=== PATIENT | male | born 1965 | race Caucasian/White ===

== ENCOUNTER → 2016-06-14 | Outpatient (CLI) | payer OTHER ==
[2016-06-14 11:30] LABS: Magnesium 1.3 mg/dL (1.6-2.3); Phosphorous 3.1 mg/dL (2.5-4.5); Potassium 5.8 mmol/L (3.5-5.1)
== END ==
LOC: LABWHC1 10:29
PROVIDERS: ATTEND Family Medicine
DX: N18.9 Chronic kidney disease, unspecified (principal); E87.6 Hypokalemia; R25.2 Cramp and spasm
CPT/HCPCS: 36415; 80051; 82550; 82565; 83735; 84100; 84520; 85652; 99213

== ENCOUNTER → 2016-06-26 | Outpatient (CLI) | payer OTHER ==
--- NOTE | 2016-06-26 10:46 | US ---
LOWER EXTREMITY VENOUS INSUFFICIENCY SIDE PERFORMED: Bilateral 1) Color flow is present and patency is documented in the following vessels. No DVT or SVT is noted . ? EIV ? Common Femoral Vein ? Deep Femoral Vein ? Femoral Vein ? Popliteal Vein ? Proximal Calf Veins ? Greater Saph Vein ? Upper Small Saph Vein No reflux seen at this time IMPRESSION: NORMAL VENOUS INSUFFICIENCY STUDY.
--- NOTE | 2016-06-27 12:59 | P.ARTDOP ---
Arterial Doppler LOWER EXTREMITY ARTERIAL DOPPLER: DATE OF SERVICE: 06/26/2016 Reason for study: Left leg pain. Doppler waveforms: Multiphasic bilaterally throughout. Pulse volume recording: Normal configuration. Pressure gradients: None. Ankle-brachial indices: Greater than 1 bilaterally. Toe pressures: 116 on the right, 131 on the left Impression: Normal study.
--- NOTE | 2016-07-04 10:28 | P.ARTDOP ---
Arterial Doppler LOWER EXTREMITY ARTERIAL DOPPLER: DATE OF SERVICE: 06/26/2016 Reason for study: Leg pain. Doppler waveforms: Multiphasic bilaterally throughout. Pulse volume recording: Normal configuration. Pressure gradients: None. Ankle-brachial indices: Greater than 1 bilaterally. Toe pressures: 116 on the right, 131 on the left Impression: Normal study.
== END | disposition home or self-care (01) ==
LOC: RADUSWWP 09:22
PROVIDERS: ATTEND Family Medicine
DX: M79.604 Pain in right leg (principal); M79.605 Pain in left leg
CPT/HCPCS: 93923; 93970

== ENCOUNTER → 2016-08-02 | Outpatient (CLI) | payer OTHER ==
[2016-08-02 10:45] LABS: CHCM 34.2; HCT 41.8 % (39.0-53.0); HDW 2.69; HGB 13.9 gm/dL (13.0-17.5); MCH 29.4 pg (25.0-35.0); MCHC 33.3 g/dL (31.0-37.0); MCV 88.3 fL (80.0-100.0); Mean Platelet Volume 6.7; RBC 4.74 m/uL (4.30-5.90); RDW 13.3 % (11.5-15.5); WBC 6.1 k/uL (3.8-10.6)
== END | disposition home or self-care (01) ==
LOC: LABWHC1 09:53
PROVIDERS: ATTEND Orthopaedic Surgery
DX: E55.9 Vitamin D deficiency, unspecified (principal); M79.672 Pain in left foot; E11.9 Type 2 diabetes mellitus without complications; M14.672 Charcot's joint, left ankle and foot
CPT/HCPCS: 36415; 82040; 82306; 85027

== ENCOUNTER → 2016-09-07 | Outpatient (CLI) | payer OTHER | END | disposition home or self-care (01) | LOC: LABWHC1 10:21 | PROVIDERS: ATTEND Orthopaedic Surgery | DX: E55.9 Vitamin D deficiency, unspecified (principal) | CPT/HCPCS: 36415; 82306 ==

== ENCOUNTER → 2016-10-05 | Outpatient (CLI) | payer OTHER | LOC: LABWHC1 11:09 | PROVIDERS: ATTEND Family Medicine | DX: E87.5 Hyperkalemia (principal) | CPT/HCPCS: 36415; 84132 ==

== ENCOUNTER 2016-10-10 11:26 | Inpatient (IN) | payer OTHER ==
[2016-10-08 12:08] VITALS: BMI 40.6
[~2016-10-10 11:26] MED LIST: DEXAMETHASONE SOD PHOSPHATE 10 MG/ML 1 ML VIAL IV ONE; HYDROmorphone 1 MG/ML 1 ML SYRINGE IVP PRN; MIDAZOLAM 2 MG/2 ML VIAL IV PRN; ONDANSETRON 4 MG/2 ML VIAL IVP ONE; SCOPOLAMINE 1.5MG/72HR PATCH TRANSDERM ONE; ceFAZolin 3 GM in SODIUM CHLORIDE 0.9% 100 ML IVPB ONE
[2016-10-10] MEDS ORDERED: MIDAZOLAM 2 MG/2 ML VIAL IV ONE (12:05)
[2016-10-10] MEDS: LACTATED RINGERS 1,000 ML IV SCH ×3 (12:05→21:21)
[2016-10-10 12:08] LABS: Glucose,Whole Blood 156 mg/dL (75-99)
[2016-10-10] MEDS ORDERED: MIDAZOLAM 2 MG/2 ML VIAL ONE (13:30)
[2016-10-10] MEDS ORDERED: LABETALOL 5 MG/ML VIAL MDV ONE (13:30)
[2016-10-10] MEDS ORDERED: HYDROmorphone (PF) 1 MG/ML ONE (13:30)
[2016-10-10] MEDS ORDERED: SUCCINYLCHOLINE CHLORIDE 100 MG/5 ML SYR IV ONE (13:30)
[2016-10-10] MEDS ORDERED: PHENYLEPHRINE-0.9% NACL SYG 1 MG/10 ML SYRINGE ONE (13:30)
[2016-10-10] MEDS ORDERED: PROPOFOL 10 MG/ML 20 ML VIAL IV ONE (13:30)
[2016-10-10] MEDS ORDERED: fentaNYL (PF) 50 MCG/ML 2 ML AMP ONE (13:30)
[2016-10-10] MEDS ORDERED: LIDOCAINE 1% INJ 10MG/ML (20 ML MDV) ONE (13:30)
[2016-10-10] MEDS ORDERED: LACTATED RINGERS 1,000 ML IV ONE ×2 (14:17→15:26)
[2016-10-10] MEDS ORDERED: ceFAZolin 1,000 MG in SODIUM CHLORIDE 0.9% 1,000 ML IRRIGATION ONE (15:34)
[2016-10-10] MEDS ORDERED: ONDANSETRON 4 MG/2 ML VIAL IVP PRN (15:52)
[2016-10-10] MEDS ORDERED: SENNOSIDES-DOCUSATE SODIUM 1 EACH TAB PO PRN (15:52)
[2016-10-10] MEDS ORDERED: diphenhydrAMINE 25 MG CAP PO PRN (15:52)
[2016-10-10] MEDS ORDERED: TEMAZEPAM 15 MG CAP PO PRN (15:52)
[2016-10-10] MEDS ORDERED: HYDROmorphone 1 MG/ML 1 ML SYRINGE IVP PRN ×2 (15:52)
[2016-10-10] MEDS ORDERED: METOCLOPRAMIDE 5 MG/ML 2 ML VIAL IVP PRN (15:52)
[2016-10-10] MEDS ORDERED: HYDROcodone/APAP 7.5-325MG 1 EACH TAB PO PRN ×2 (15:56)
[2016-10-10 17:46] LABS: Glucose,Whole Blood 219 mg/dL (75-99)
[2016-10-10] MEDS ORDERED: ONDANSETRON 4 MG/2 ML VIAL IVP ONE (17:59)
--- NOTE | 2016-10-10 18:08 | P.OP ---
Date of Procedure: 10/10/16 Preoperative Diagnosis: 1. Left Charcot midfoot arthritis with collapse and history of plantar medial ulcer 2. Type 2 diabetes with peripheral neuropathy 3. Morbid obesity with a BMI of 40.7 4. Left Achilles tendon contracture Postoperative Diagnosis: Same Procedure(s) Performed: 1. Left medial column fusion (fusion of the talonavicular, naviculocuneiform, and first tarsometatarsal joints) 2. Left biplanar, closing wedge midfoot osteotomy 3. Left percutaneous tendo Achilles lengthening Implants: [employer] midfoot beams and bolts Anesthesia: MARLEE Surgeon: Isidro Ramos Gold Layer #1: Leopoldo Romero Estimated Blood Loss (ml): 100 IV fluids (ml): 2,250 Urine output (ml): 650 Pathology: other (Deep cultures sent from medial midfoot) Condition: stable Disposition: PACU Indications for Procedure: The patient is a 51-year-old male who medical history significant for diabetes with peripheral neuropathy and morbid obesity who is had many years of complications in his left foot. The patient has previously been seen by other orthopedic surgeons, diet wrists and in the wound Center. Treatment prior to meeting me has included a gastrocnemius recession performed by Dr. Biswas, wound care for an ulcer, total contact casting, use of a NUNAK[place]YARMIUT boot and diabetic shoes and inserts. The patient had continued collapse of his foot with significant deformity as well as an ulcer under the plantar medial aspect of his foot. The patient was sent to my office for further evaluation. On exam the patient had a rigid deformity with abduction of the forefoot and collapse of the longitudinal arch with a rocker-bottom deformity. He also had an area of superficial ulceration that it healed. Silfverskiold testing showed a tendo Achilles contracture. He was sent for an MRI which showed no evidence of deep infection or osteomyelitis. His vitamin D level was 7 so he was placed on high- dose supplementation. Repeat vitamin D level was 68. We do lengthy discussion on treatment options including continued conservative treatment versus surgery. We discussed different surgical options including biplanar closing wedge midfoot osteotomy and midfoot beams and bolts versus thin wire frames. The patient and I elected to go forward with the closing wedge osteotomy and midfoot fusion using bolts and beams. We discussed the potential risks and complication of surgery including but not limited to risk of anesthesia, risk of superficial infection, risk of deep infection, risk of delayed wound healing , risk of necrosis, risk of damage to local blood vessels or nerves, risk of recurrent deformity risk of collapse postoperatively, risk of chronic pain, risk of chronic swelling, risk of postoperative medical problems, risk of need for further surgery including amputation, and possibly loss of life or limb. The patient understands this and provided his verbal and written consent to go forward with surgery. He stated in the office that he understands his high risk due to his diabetes and obesity and that if he has failure or deep infection he may ultimately need a below-knee amputation. Operative Findings: Description of Procedure: The patient was identified in preoperative holding and the correct left leg was marked with my initials. All the patient's questions were answered and I verified the consent form. The patient was then brought back to the operating room. He was transferred onto the operating room table and a general anesthetic and preoperative antibiotics were administered. While the patient was under anesthesia I performed a Silfverskiold testing. With the knee extended I was unable to passively dorsiflex past neutral and when I bent the knee to 90 I was still unable to passively dorsiflex past neutral. I interpreted this as a global Achilles tendon contracture. A tourniquet was then applied around the proximal thigh. A bone foam bump and ramp or placed under the left leg. His contralateral right leg was secured to the table with foam and tape. The patient's left leg was then prepped and draped in the standard sterile fashion. Prior to starting surgery timeout was performed identifying the correct patient, operative extremity, and procedure. I started by performing a percutaneous tendo Achilles lengthening. 3 small stab incisions were made equally spaced across the distal Achilles tendon with 2 medial releases proximally and distally and 1 medial release in the middle. The Achilles tendon was gently stretched and a significant increase in dorsiflexion was achieved. The leg was then elevated, exsanguinated with an Esmarch bandage and the tourniquet was inflated to 250 mmHg. I began by making a medial incision along the medial column of the foot. The incision was started at the talar neck and extended distally to the first metatarsal base. The area of ulceration was ellipsed out. Dissection was carried down carefully to the subcutaneous tissue with tenotomy scissors. The tibialis anterior tendon was identified and carefully retracted. The medial column was then exposed. There was a significant abduction deformity through the first tarsometatarsal joint. Once all of the joints were exposed K wires were placed for a biplanar closing wedge osteotomy. One K wire was placed just distal to the first tarsometatarsal joint in the first metatarsal base perpendicular to the long axis of the first metatarsal. The K wire was driven across the midfoot. A second K wire was then placed in the medial cuneiform just distal to the naviculocuneiform joint perpendicular to the long axis of the talus. This K wire was driven across the midfoot converging laterally with the previously placed K wire. I verified position of both K wires with fluoroscopy. There appeared to be a nice closing wedge in the AP plane. I then used the cutting guide from the set and placed a second K wire in the first metatarsal to achieve a plane of osteotomy perpendicular to the first metatarsal in the sagittal plane. Using a saw the distal cut was made. I then proceeded to place a K wire through the osteotomy guide and the medial cuneiform taking care to make the cutting guide perpendicular to the long axis of the talus in the sagittal plane. Conically looked like a nice closing wedge osteotomy would be obtained. A saw was then used to make the more proximal cut. Once both cuts of been made I carefully removed the wedge of bone. An osteotome was used to free up the osteotomy laterally. Once this had been done the joint surfaces were prepared. All the remaining cartilage from the naviculocuneiform and talonavicular joint removed with a series of osteotomes. The wounds were copiously irrigated. A 2.0 mm jewel bit was used to fenestrate the exposed subchondral bone. Then using a large [id number] reduction clamp I reduced the medial column. Prior to closing down the osteotomy and fusion site augment and locally obtained bone graft was packed at the fusion site. A longitudinal incision was then made over the first MTP joint. Dissection was carried down carefully through subcutaneous tissue. The EHL tendon was identified and retracted laterally. The first MTP joint was then incised longitudinally in line with the skin incision. The first MTP joint was plantarflexed and a K wire was placed retrograde down the first metatarsal across the fusion site and up into the talus. The position of the K wire was verified with fluoroscopy. A drill was used to create a tract and then a fully threaded 6.5 mm beam was placed. I verified position of the beam on both the AP and lateral planes. An AP shot of the ankle was also taken. On all planes the beam was within the talus. At this point I decided to place a bolt down the second ray. The second MTP joint was plantarflexed and an incision was made over the dorsal aspect of the MTP joint. Dissection was carried down carefully through subcutaneous tissue. The extensor tendon was identified and retracted. The MTP capsule was incised longitudinally in line with the skin incision. MTP joint was plantarflexed and a K wire was placed retrograde down the second metatarsal shaft across the midfoot and up into the talus. A drill bit was used to create a tract for a fully threaded bolt. The K wire was then removed and a partially threaded, solid, 5.0 mm bolt was placed. At this point final x-rays were taken. I was happy with the position of the hardware and the correction through the closing wedge osteotomy. Locally obtained bone graft was placed along the medial column. The tourniquet had been let down earlier in the case with a total tourniquet time of 120 minutes. The deep fascia was closed over the fusion site with a running 0 Vicryl suture medially. The deep subcutaneous layer was closed with 2-0 Vicryl. The skin was closed with 3-0 nylon. The first MTP joint was copiously irrigated. I verified that the beam was countersunk below the first metatarsal head. The capsule was closed with a running 0 Vicryl stitch. The deep subcu was closed with an interrupted 2-0 Vicryl. The skin was closed with 3-0 nylon. The second MTP joint was copiously irrigated. I verified that the bolt was countersunk below the second metatarsal head. The capsule was closed with interrupted 2-0 Vicryl stitch. The deep subcu was reapproximated using 2-0 Vicryl. The skin was closed with 3- 0 nylon. The leg was then cleansed. A sterile dressing consisting of Betadine soaked Adaptic, 4 x 4, and web roll was applied. The drapes were taken down and a very well-padded bulky Barlow type splint was applied with the ankle in neutral. I verified that all instrument, sponge, and sharp counts were correct. The patient was then awoken from his anesthetic, transferred from the operating room table to the [facility], and brought to PACU having tied the procedure well. Leopoldo Romero was required as a skilled machine operator assistant for patient positioning, exposure, retraction, preparation of the fusion site, placement of hardware, closure of surgical wounds, and application of splint. Plan: The patient is going to be admitted for IV antibiotics. He will treated with Lovenox while in house for DVT prophylaxis and then will be sent home on aspirin. He is to be strictly nonweightbearing for 3 months. We will plan on seeing him back in the office in 2 weeks for splint and suture removal.
[2016-10-10] MEDS ORDERED: LEVALBUTEROL NEB 1.25 MG/3 ML AMP INHALATION ONE (18:21)
[2016-10-10] MEDS ORDERED: LIDOCAINE (PF) 10 MG/ML 5ML AMP INTRAARTIC ONE ×2 (18:30)
[2016-10-10] MEDS ORDERED: BUPIVACAIN-EPI 0.25%-1:200,000 30 ML VIAL INTRAARTIC ONE (18:30)
--- NOTE | 2016-10-10 19:07 | P.ONQ ---
Anesthesiology Proc Note - PNB - Peripheral Nerve Block Performed Left Popliteal Single Procedure Start Time: 18:30 Procedure Stop Time: 18:50 Indication: Acute Post-Operative Pain, Requested by physician Specifically requested for management of pain by DrJulia: Isidro Ramos Sedation Type: Awake Preparation: Sterile Prep Position: Prone Needle Types: Facet Needle Size: 100mm (4") Needle Gauge: 21 Technique: Ultrasound (bupivacaine 0,25 % with epi 04/1199 k 15 ml plus lidocaine 1 % 5 ml )
[2016-10-10] MEDS ORDERED: FAMOTIDINE 20 MG TAB PO PRN (19:42)
[2016-10-10] MEDS ORDERED: ALBUTEROL INHALATION PRN (19:42)
[2016-10-10 19:53] LABS: Glucose,Whole Blood 239 mg/dL (75-99)
[2016-10-10] MEDS: BUDESONIDE 0.5 MG/2 ML NEBU INHALATION SCH (20:23)
[2016-10-10] MEDS: MAGNESIUM OXIDE 400 MG TAB PO SCH (21:06)
[2016-10-10] MEDS: INSULIN LISPRO (humaLOG) 300 UNIT/3 ML VIAL SQ SCH (21:12)
[2016-10-10] MEDS: ceFAZolin 3 GM in SODIUM CHLORIDE 0.9% 100 ML IVPB SCH (21:12)
[2016-10-10] MEDS: AMITRIPTYLINE HCL 50 MG TAB PO SCH (21:12)
[2016-10-10] MEDS: PREGABALIN 100 MG CAP PO SCH (21:14)
[2016-10-10] MEDS: HYDROcodone/APAP 10-325MG 1 EACH TAB PO PRN (21:25)
[2016-10-10] MEDS: HYDROmorphone 1 MG/ML 1 ML SYRINGE IVP PRN (22:20)
[2016-10-11] MEDS: LACTATED RINGERS 1,000 ML IV SCH ×3 (00:44→21:34)
[2016-10-11] MEDS: HYDROcodone/APAP 10-325MG 1 EACH TAB PO PRN ×4 (03:07→22:30)
[2016-10-11] MEDS: HYDROmorphone 1 MG/ML 1 ML SYRINGE IVP PRN ×2 (04:09→11:13)
[2016-10-11] MEDS: ceFAZolin 3 GM in SODIUM CHLORIDE 0.9% 100 ML IVPB SCH (04:13)
[2016-10-11] MEDS: ALBUTEROL NEBULIZED 2.5 MG/3 ML INHALATION PRN ×3 (04:22→19:40)
[2016-10-11 06:59] LABS: Glucose,Whole Blood 293 mg/dL (75-99)
[2016-10-11 07:42] LABS: Basophils % (A) 0 %; CH 29.2; CHCM 33.2; Eosinophils # (A) 0.1 k/uL (0-0.7); Eosinophils % (A) 1 %; HCT 36.6 % (39.0-53.0); HGB 12.4 gm/dL (13.0-17.5); Luc # (Auto) 0.12; Luc % (Auto) 1; Lymphocytes # (A) 1.2 k/uL (1.0-4.8); Lymphocytes % (A) 13 %; MCH 29.8 pg (25.0-35.0); MCHC 33.8 g/dL (31.0-37.0); MCV 88.4 fL (80.0-100.0); Mean Platelet Volume 7.4; Monocytes # (A) 0.6 k/uL (0-1.0); Monocytes % (A) 7 %; Neutrophils # (A) 7.4 k/uL (1.3-7.7); Neutrophils % (A) 77 %; RBC 4.14 m/uL (4.30-5.90); RDW 12.9 % (11.5-15.5); WBC 9.5 k/uL (3.8-10.6); WBC (Perox) 10.12
[2016-10-11] MEDS: BUDESONIDE 0.5 MG/2 ML NEBU INHALATION SCH ×2 (07:46→19:40)
[2016-10-11] MEDS: hydrOXYzine PAMOATE 25 MG CAP PO PRN ×2 (08:15→16:22)
[2016-10-11] MEDS: ENOXAPARIN 40 MG/0.4 ML SYRINGE SQ SCH (08:16)
[2016-10-11] MEDS: CHOLECALCIFEROL 1,000 UNIT TAB PO SCH (08:20)
[2016-10-11] MEDS: ATORVASTATIN 40 MG TAB PO SCH (08:20)
[2016-10-11] MEDS: LISINOPRIL 20 MG TAB PO SCH (08:20)
[2016-10-11] MEDS: amLODIPine 5 MG TAB PO SCH (08:20)
[2016-10-11] MEDS: MAGNESIUM OXIDE 400 MG TAB PO SCH ×2 (08:21→20:46)
[2016-10-11] MEDS: PREGABALIN 100 MG CAP PO SCH ×2 (08:28→20:50)
[2016-10-11] MEDS: INSULIN LISPRO (humaLOG) 300 UNIT/3 ML VIAL SQ SCH ×4 (08:28→21:30)
--- NOTE | 2016-10-11 08:57 | FL ---
EXAMINATION TYPE: FL guidance operating room DATE OF EXAM: 10/10/2016 HISTORY: Flouroscopy time 60 seconds of fluoroscopy provided. IMPRESSION: 1. Fluoroscopy time.
--- NOTE | 2016-10-11 08:59 | XR ---
EXAMINATION TYPE: XR ankle limited LT DATE OF EXAM: 10/10/2016 COMPARISON: NONE HISTORY: OR film TECHNIQUE: One view submitted FINDINGS: Intraoperative images markedly limited. Bony detail is reduced in resolution. No definite m etallic screw seen. IMPRESSION: Intraoperative image
[2016-10-11] MEDS ORDERED: metFORMIN 500 MG TAB PO SCH (11:30)
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
[2016-10-11 11:51] LABS: Glucose,Whole Blood 270 mg/dL (75-99)
[2016-10-11 12:53] LABS: Hemoglobin A1C 8.5 % (4.2-6.1)
[2016-10-11] MEDS: FAMOTIDINE 20 MG TAB PO SCH ×2 (13:37→20:46)
[2016-10-11] MEDS: GLIMEPIRIDE 4 MG TAB PO SCH ×2 (13:38→20:48)
--- NOTE | 2016-10-11 15:42 | P.PN ---
Subjective Principal diagnosis: Bnragek-Yetft-Cuswz left foot status post arthrodesis Patient is a pleasant 51-year-old male seen at bedside this afternoon. He is postop day #1 from Left medial column fusion (fusion of the talonavicular, naviculocuneiform, and first tarsometatarsal joints), and Achilles tendon lengthening of the left foot. He has pain at surgical site as expected but denies any new complaints. He's had chronic numbness in his distal feet denies any new numbness or tingling. He denies calf pain. He also denies fever, chills, chest pain or shortness of breath. Objective - Vital Signs Vital signs: Vital Signs Temp 98.1 F 10/11/16 13:39 Pulse 75 10/11/16 13:39 Resp 16 10/11/16 13:39 BP 95/62 10/11/16 13:39 Pulse Ox 98 10/11/16 13:39 Intake & Output 10/10/16 10/11/16 10/11/16 18:59 06:59 18:59 Intake Total 2900 500 Output Total 750 550 Balance 2150 -550 500 Weight 136.078 kg Intake: IV 2900 Oral 500 Output: Urine 650 550 Estimated Blood Loss 100 Other: Voiding Method Urinal - Exam Inspection of the left lower extremity shows well-padded splint in place. He has adequate perfusion in all digits with less than 2 second capillary refill. There is no evidence of active bleeding or drainage. Neurovascular status intact proximal to the splint as well. - Constitutional General appearance: Present: no acute distress, obese - Psychiatric Psychiatric: Present: A&O x's 3, appropriate affect, intact judgment & insight - Labs CBC & Chem 7: 10/11/16 07:06 10/10/16 12:00 Labs: Abnormal Lab Results - Last 24 Hours (Table) 10/10/16 10/10/16 10/11/16 Range/Units 17:44 19:52 06:56 RBC (4.30-5.90) m/uL Hgb (13.0-17.5) gm/dL Hct (39.0-53.0) % POC Glucose (mg/dL) 219 H 239 H 293 H (75-99) mg/dL Hemoglobin A1c (4.2-6.1) % 0710/11/16 10/11/16 Range/Units 07:06 07:06 11:43 RBC 4.14 L (4.30-5.90) m/uL Hgb 12.4 L (13.0-17.5) gm/dL Hct 36.6 L (39.0-53.0) % POC Glucose (mg/dL) 270 H (75-99) mg/dL Hemoglobin A1c 8.5 H (4.2-6.1) % Microbiology - Last 24 Hours (Table) 10/10/16 14:12 Gram Stain - Preliminary Foot - Left Tissue Culture - Preliminary 10/10/16 14:12 Anaerobic Culture - Preliminary Foot - Left Assessment and Plan (1) Charcot foot due to diabetes mellitus Narrative/Plan: He'll continue with routine postop orthopedic protocol including pain management , wound care, physical therapy, DVT prophylaxis and postoperative medical management. Continue elevation left lower extremity. His pain medications from will need to be adjusted as is required continued IV pain medication for breakthrough. Expect that he will discharged home tomorrow. Status: Acute Time with Patient: Less than 30
[2016-10-11] MEDS: traMADol 50 MG TAB PO PRN ×2 (16:18→20:46)
[2016-10-11 16:52] LABS: Glucose,Whole Blood 246 mg/dL (75-99)
[2016-10-11] MEDS: metFORMIN 500 MG TAB PO SCH (17:46)
[2016-10-11] MEDS: oxyCODONE ER 10 MG TAB.ER.12H PO SCH (20:48)
[2016-10-11] MEDS: AMITRIPTYLINE HCL 50 MG TAB PO SCH (20:50)
[2016-10-11 20:58] LABS: Glucose,Whole Blood 213 mg/dL (75-99)
[2016-10-11] MEDS ORDERED: FAMOTIDINE 20 MG TAB PO SCH (21:00)
[2016-10-12] MEDS: traMADol 50 MG TAB PO PRN ×3 (02:44→11:43)
[2016-10-12] MEDS: HYDROcodone/APAP 10-325MG 1 EACH TAB PO PRN ×2 (04:29→10:55)
[2016-10-12 07:11] LABS: Glucose,Whole Blood 189 mg/dL (75-99)
[2016-10-12] MEDS: BUDESONIDE 0.5 MG/2 ML NEBU INHALATION SCH (07:43)
[2016-10-12] MEDS: ENOXAPARIN 40 MG/0.4 ML SYRINGE SQ SCH (08:28)
[2016-10-12] MEDS: oxyCODONE ER 10 MG TAB.ER.12H PO SCH (08:29)
[2016-10-12] MEDS: LISINOPRIL 20 MG TAB PO SCH (08:29)
[2016-10-12] MEDS: PREGABALIN 100 MG CAP PO SCH (08:29)
[2016-10-12] MEDS: FAMOTIDINE 20 MG TAB PO SCH (08:29)
[2016-10-12] MEDS: CHOLECALCIFEROL 1,000 UNIT TAB PO SCH (08:29)
[2016-10-12] MEDS: MAGNESIUM OXIDE 400 MG TAB PO SCH (08:29)
[2016-10-12] MEDS: metFORMIN 500 MG TAB PO SCH (08:30)
[2016-10-12] MEDS: INSULIN LISPRO (humaLOG) 300 UNIT/3 ML VIAL SQ SCH ×2 (08:30→12:34)
[2016-10-12] MEDS: GLIMEPIRIDE 4 MG TAB PO SCH (08:30)
[2016-10-12] MEDS: amLODIPine 5 MG TAB PO SCH (08:30)
[2016-10-12] MEDS: ATORVASTATIN 40 MG TAB PO SCH (08:30)
[2016-10-12] MEDS: LACTATED RINGERS 1,000 ML IV SCH (08:47)
[2016-10-12 09:04] VITALS: BP 101/62; PULSE 83; RESP 18; TEMP 97.7
--- NOTE | 2016-10-12 09:32 | P.DS ---
Providers Date of admission: 10/10/16 17:37 Expected date of discharge: 10/12/16 Attending physician: Isidro Ramos Consults: 10/10/16 15:52 Consult Physician Routine Consulting Provider: Jose Daniel Miller Consult Reason/Comments: post op medical management Do you want consulting provider notified?: Yes Primary care physician: Tanna Boyle - Discharge Diagnosis(es) (1) Charcot foot due to diabetes mellitus Patient was admitted to the OR on 10/10/2016 to undergo left midfoot fusion, Charcot arthritis deformity correction and Achilles lengthening after failing conservative measures as an outpatient. He desired to proceed with elective surgery after given informed consent. He underwent the above procedure which he tolerated well without complication. His postoperative hospital course has remained without complication. On day of discharge he is afebrile, vital signs stable, labs within acceptable ranges, wound is benign, splint in place, neurovascular status intact, passing flatus, voiding without difficulty, tolerating by mouth meds and diet, denying abdominal pain or calf pain, denying any other new complaints. Pain is controlled on oral pain medication. Review of systems is negative for fever, chills, chest pain, shortness breath, nausea, vomiting, dizziness, headaches, slurred speech or other. Current Visit: No Status: Acute Priority: Medium Procedures: Midfoot fusion, deformity correction and Achilles lengthening on the left Patient Condition at Discharge: Good Plan - Discharge Summary New Discharge Prescriptions: New Aspirin 325 mg PO BID #60 tab Docusate [Colace] 100 mg PO BID #60 capsule HYDROcodone/APAP 10-325MG [[place] 10-325] 1 tab PO Q4HR PRN #90 tab PRN Reason: Pain oxyCODONE ER [OxyCONTIN] 10 mg PO Q12HR #28 tab No Action Pregabalin [Lyrica] 200 mg PO BID Liraglutide [Victoza 3-Master] 18 mg SQ W/LUNCH amLODIPine BESYLATE [Norvasc] 5 mg PO DAILY Ranitidine HCl [Zantac] 75 mg PO BID PRN PRN Reason: Heartburn Benazepril HCl 20 mg PO DAILY metFORMIN HCL [Glucophage] 500 mg PO BID Glimepiride [Amaryl] 4 mg PO BID Albuterol Inhaler [Ventolin Hfa Inhaler] 1 - 2 puff INHALATION RT-Q6H PRN PRN Reason: Shortness Of Breath Or Wheezing Albuterol Nebulized (Conc) [Ventolin Nebulized (Conc)] 1 mg INHALATION RT- QID PRN PRN Reason: Shortness Of Breath Or Wheezing HYDROcodone/APAP 10-325MG [[place] 10-325] 2 tab PO Q6HR PRN PRN Reason: Pain Budesonide [Pulmicort Flexhaler] 1 puff INHALATION RT-BID Cholecalciferol [Vitamin D3] 2,000 unit PO DAILY Atorvastatin [Lipitor] 40 mg PO DAILY Amitriptyline HCl [Elavil] 100 mg PO HS Magnesium Gluconate [Magonate] 500 mg PO BID Discharge Medication List Albuterol Inhaler [Ventolin Hfa Inhaler] 1 - 2 puff INHALATION RT-Q6H PRN [History] Albuterol Nebulized (Conc) [Ventolin Nebulized (Conc)] 1 mg INHALATION RT-QID PRN 06/07/16 [History] Benazepril HCl 20 mg PO DAILY 06/07/16 [History] Budesonide [Pulmicort Flexhaler] 1 puff INHALATION RT-BID 06/07/16 [History] Glimepiride [Amaryl] 4 mg PO BID 06/07/16 [History] HYDROcodone/APAP 10-325MG [[place] 10-325] 2 tab PO Q6HR PRN 06/07/16 [History] Liraglutide [Victoza 3-Master] 18 mg SQ W/LUNCH 06/07/16 [History] Pregabalin [Lyrica] 200 mg PO BID 06/07/16 [History] Ranitidine HCl [Zantac] 75 mg PO BID PRN 06/07/16 [History] amLODIPine BESYLATE [Norvasc] 5 mg PO DAILY 06/07/16 [History] metFORMIN HCL [Glucophage] 500 mg PO BID 06/07/16 [History] Cholecalciferol [Vitamin D3] 2,000 unit PO DAILY 08/16/16 [History] Atorvastatin [Lipitor] 40 mg PO DAILY 10/08/16 [History] Amitriptyline HCl [Elavil] 100 mg PO HS 10/10/16 [History] Magnesium Gluconate [Magonate] 500 mg PO BID 10/10/16 [History] Aspirin 325 mg PO BID #60 tab 10/12/16 [Rx] Docusate [Colace] 100 mg PO BID #60 capsule 10/12/16 [Rx] HYDROcodone/APAP 10-325MG [[place] 10-325] 1 tab PO Q4HR PRN #90 tab 10/12/16 [Rx] oxyCODONE ER [OxyCONTIN] 10 mg PO Q12HR #28 tab 10/12/16 [Rx] Follow up Appointment(s)/Referral(s): Isidro Ramos MD [Medical Doctor] - 10 Days Activity/Diet/Wound Care/Special Instructions: Keep splint and wound clean and dry Nonweightbearing Take meds as directed Elevate left lower extremity Follow up with Dr. Ramos in office, [phone] Discharge Disposition: HOME SELF-CARE
[2016-10-12 11:52] LABS: Glucose,Whole Blood 235 mg/dL (75-99)
--- NOTE | 2016-10-12 12:13 | P.PN ---
Subjective Patient is clinically doing well. Patient has muscular spelled the chest pain. Patient troponin EKG essentially negative my suspicion is extremely low for pulmonary embolism patient pain worsens with movement of the chest and nonpruritic in nature. Patient was bit hypotensive because of the amlodipine is being discontinued and patient from medical perspective can be discharged. Objective - Vital Signs Vital signs: Vital Signs Temp 97.7 F 10/12/16 07:00 Pulse 83 10/12/16 07:00 Resp 18 10/12/16 07:00 BP 101/62 10/12/16 07:00 Pulse Ox 94 L 10/12/16 07:00 Intake & Output 10/11/16 10/12/16 10/12/16 18:59 06:59 18:59 Intake Total 500 480 Output Total 200 Balance 500 280 Intake: Oral 500 480 Output: Urine 200 Other: # Voids 1 1 # Bowel Movements 0 - Exam PHYSICAL EXAMINATION: GENERAL: The patient is alert and oriented x3, not in any acute distress. Well developed, well nourished. HEENT: Pupils are round and equally reacting to light. EOMI. No scleral icterus. No conjunctival pallor. Normocephalic, atraumatic. No pharyngeal erythema. No thyromegaly. CARDIOVASCULAR: S1 and S2 present. No murmurs, rubs, or gallops. PULMONARY: Chest is clear to auscultation, no wheezing or crackles. ABDOMEN: Soft, nontender, nondistended, normoactive bowel sounds. No palpable organomegaly. MUSCULOSKELETAL: Deferred to orthopedic surgery EXTREMITIES: No cyanosis, clubbing, or pedal edema. NEUROLOGICAL: Gross neurological examination did not reveal any focal deficits. SKIN: No rashes. - Labs CBC & Chem 7: 10/11/16 07:06 10/10/16 12:00 Labs: Abnormal Lab Results - Last 24 Hours (Table) 10/11/16 10/11/16 10/11/16 Range/Units 07:06 16:50 20:49 POC Glucose (mg/dL) 246 H 213 H (75-99) mg/dL Hemoglobin A1c 8.5 H (4.2-6.1) % 10/12/16 10/12/16 Range/Units 07:08 11:34 POC Glucose (mg/dL) 189 H 235 H (75-99) mg/dL Hemoglobin A1c (4.2-6.1) % Microbiology - Last 24 Hours (Table) 10/10/16 14:12 Gram Stain - Preliminary Foot - Left Tissue Culture - Preliminary Assessment and Plan Plan: 1 left degerative midfoot arthritis and patient is status post fusion surgery: No significant postoperative medications. Pain management and DVT prophylaxis as per the primary service. She is medically stable to be discharged. #2 type 2 diabetes mellitus uncontrolled blood sugars greasing metformin 2000 twice a day and rest of the regimen can be continued. #3 hypertension: Well-controlled blood pressure , hypotensive amlodipine will be discontinued. #4 gastric esophageal reflux disease: Pepcid can be continued. #5 hyperlipidemia: Continue with his home dose of statin. #6 osteoarthritis. 7 morbid obesity: Patient will benefit from outpatient sleep study. #8 Muskuloskeletalthe chest pain continue with anti-inflammatory medications.
== END 2016-10-12 13:36 | disposition home or self-care (01) | DRG 42 ==
LOC: OR 11:26 → EDSTATUS 13:00 → 3SUR 17:37
PROVIDERS: ADMIT Orthopaedic Surgery; ATTEND Orthopaedic Surgery
PROC: 0QUP07Z Supplement Left Metatarsal with Autologous Tissue Substitute, Open Approach (ICD-10-PCS; principal; 2016-10-10 13:00)
PROC: 0L8T0ZZ Division of Left Ankle Tendon, Open Approach (ICD-10-PCS; principal; 2016-10-10 13:00)
PROC: 0QSP04Z Reposition Left Metatarsal with Internal Fixation Device, Open Approach (ICD-10-PCS; principal; 2016-10-10 13:00)
PROC: 0SGN0ZZ (ICD-10-PCS; principal; 2016-10-10 13:00)
DX: E11.610 Type 2 diabetes mellitus with diabetic neuropathic arthropathy (principal); E66.01 Morbid (severe) obesity due to excess calories; I10 Essential (primary) hypertension; E78.5 Hyperlipidemia, unspecified; F12.90 Cannabis use, unspecified, uncomplicated; J45.909 Unspecified asthma, uncomplicated; K21.9 Gastro-esophageal reflux disease without esophagitis; M19.90 Unspecified osteoarthritis, unspecified site; Z79.84 Long term (current) use of oral hypoglycemic drugs; Z79.899 Other long term (current) drug therapy; Z87.442 Personal history of urinary calculi; Z87.891 Personal history of nicotine dependence; F17.220 Nicotine dependence, chewing tobacco, uncomplicated
CPT/HCPCS: 83036; 84132; 85025; 87070; 87075; 87205; 93005; 94640

== ENCOUNTER → 2017-04-25 | Outpatient (CLI) | payer OTHER | END | disposition home or self-care (01) | LOC: LABWHC1 14:39 | PROVIDERS: ATTEND Orthopaedic Surgery | DX: E55.9 Vitamin D deficiency, unspecified (principal) | CPT/HCPCS: 36415; 82306 ==

== ENCOUNTER 2017-06-11 10:19 | Inpatient (IN) | payer OTHER ==
[2017-06-11 13:00] LABS: Glucose,Whole Blood 172 mg/dL (75-99)
[2017-06-11 13:38] LABS: Albumin 3.9 g/dL (3.5-5.0); Calcium 9.3 mg/dL (8.4-10.2); Potassium 4.7 mmol/L (3.5-5.1); Total Bilirubin 0.5 mg/dL (0.2-1.3)
[2017-06-11 13:43] LABS: Basophils # (A) 0.1 k/uL (0-0.2); Basophils % (A) 1 %; Eosinophils # (A) 0.4 k/uL (0-0.7); Eosinophils % (A) 3 %; HCT 37.2 % (39.0-53.0); HGB 12.8 gm/dL (13.0-17.5); Lymphocytes # (A) 2.1 k/uL (1.0-4.8); Lymphocytes % (A) 16 %; MCH 28.6 pg (25.0-35.0); MCHC 34.3 g/dL (31.0-37.0); MCV 83.5 fL (80.0-100.0); Mean Platelet Volume 7.5; Monocytes # (A) 0.9 k/uL (0-1.0); Monocytes % (A) 7 %; Neutrophils # (A) 9.9 k/uL (1.3-7.7); Neutrophils % (A) 73 %; Platelet Count 178 k/uL (150-450); RBC 4.45 m/uL (4.30-5.90); RDW 15.1 % (11.5-15.5); WBC 13.6 k/uL (3.8-10.6)
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
--- NOTE | 2017-06-11 15:14 | XR ---
EXAMINATION TYPE: XR foot complete LT DATE OF EXAM: 06/11/2017 COMPARISON: 06/07/2016 HISTORY: Swelling and redness TECHNIQUE: Three views are submitted. FINDINGS: Postsurgical changes are noted. There is heterotopic ossification. There is fragmentation of the tars al bones which could be related to osteomyelitis or Charcot joint. Extensive soft tissue edema noted. Large calcaneal spur noted. Arthropathy of the ankle joint noted. IMPRESSION: 1. There is extensive soft tissue edema with progressive fragmentation of the tarsal. Likely related to Charcot's joint or osteomyelitis correlate clinically.
--- NOTE | 2017-06-11 15:15 | XR ---
EXAMINATION TYPE: XR tibia fibula RT DATE OF EXAM: 06/11/2017 COMPARISON: NONE HISTORY: Pain and swelling TECHNIQUE: Two views are submitted. FINDINGS: The osseous structures are intact. The joint spaces are preserved. There is arthropathy of the knee joint. Extensive soft tissue edema surrounding the ankle with large calcaneal spur and fragmentation of the tarsal bones. Soft tissue calcification ossification noted. IMPRESSION: 1. Soft tissue edema centered around the ankle and foot with fragmentation of the tarsal bones.
--- NOTE | 2017-06-11 15:30 | US ---
EXAMINATION TYPE: US venous doppler duplex LE RT DATE OF EXAM: 06/11/2017 3:20 PM COMPARISON: NONE CLINICAL HISTORY: Pain. SIDE PERFORMED: Right TECHNIQUE: The lower extremity deep venous system is examined utilizing real time linear array sonog elfego with graded compression, doppler sonography and color-flow sonography. VESSELS IMAGED: External Iliac Vein (EIV) Common Femoral Vein Deep Femoral Vein Greater Saphenous Vein * Femoral Vein Popliteal Vein Small Saphenous Vein * Proximal Calf Veins (* superficial vessels) Patient of large body habitus, unable to do compression at mid and distal femoral vein due to patient inability to tolerate. Right Leg: Negative for DVT IMPRESSION: 1. No diagnostic evidence of DVT as visualized.
[2017-06-11] MEDS ORDERED: VANCOMYCIN IV PER PHARMACY 1 EACH MISC MISCELLANE PRN (15:40)
[2017-06-11] MEDS ORDERED: NALOXONE 0.4 MG/ML 1 ML VIAL IV PRN (15:41)
[2017-06-11] MEDS ORDERED: cefTRIAXone IN SWFI 1,000 MG/10 ML SYRINGE IVP STA (15:41)
[2017-06-11] MEDS ORDERED: ALBUTEROL NEBULIZED 2.5 MG/3 ML INHALATION PRN (15:42)
[2017-06-11] MEDS ORDERED: BUDESONIDE 0.5 MG/2 ML NEBU INHALATION PRN (15:42)
[2017-06-11] MEDS ORDERED: FAMOTIDINE 20 MG TAB PO PRN (15:42)
[2017-06-11] MEDS ORDERED: CALCIUM CARBONATE 500 MG CHEWABLE PO PRN (15:42)
[2017-06-11] MEDS ORDERED: VANCOMYCIN 2,500 MG in SODIUM CHLORIDE 0.9% 500 ML IVPB STA (15:50)
[2017-06-11 16:51] LABS: Glucose,Whole Blood 210 mg/dL (75-99)
[2017-06-11 17:17] VITALS: BMI 40.6
[2017-06-11] MEDS: HYDROcodone/APAP 10-325MG 1 EACH TAB PO PRN ×2 (19:04→23:37)
[2017-06-11] MEDS: PREGABALIN 100 MG CAP PO SCH (20:13)
[2017-06-11] MEDS: metFORMIN 500 MG TAB PO SCH (20:14)
[2017-06-11] MEDS: GLIMEPIRIDE 4 MG TAB PO SCH (20:14)
[2017-06-11 20:22] LABS: Glucose,Whole Blood 270 mg/dL (75-99)
[2017-06-11] MEDS ORDERED: INSULIN DETEMIR 100 UNIT/ML 10 ML VIAL SQ SCH (21:00)
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
[2017-06-12] MEDS: SODIUM CHLORIDE 0.9% 1,000 ML IV SCH (00:54)
[2017-06-12] MEDS: HYDROcodone/APAP 10-325MG 1 EACH TAB PO PRN ×4 (05:35→23:50)
[2017-06-12] MEDS ORDERED: VANCOMYCIN 2,000 MG in SODIUM CHLORIDE 0.9% 500 ML IVPB SCH (06:00)
[2017-06-12 07:57] LABS: Glucose,Whole Blood 130 mg/dL (75-99)
[2017-06-12] MEDS: PREGABALIN 100 MG CAP PO SCH ×2 (08:32→22:47)
[2017-06-12] MEDS: metFORMIN 500 MG TAB PO SCH ×2 (08:32→17:43)
[2017-06-12] MEDS: ATORVASTATIN 40 MG TAB PO SCH (08:32)
[2017-06-12] MEDS: FUROSEMIDE 20 MG TAB PO SCH (08:32)
[2017-06-12] MEDS: HEPARIN SODIUM,PORCINE 5,000 UNIT/ML 1 ML VIAL SQ SCH ×3 (08:33→22:47)
[2017-06-12] MEDS: LISINOPRIL 20 MG TAB PO SCH (08:33)
[2017-06-12] MEDS: GLIMEPIRIDE 4 MG TAB PO SCH ×2 (08:33→17:43)
[2017-06-12] MEDS: POTASSIUM CHLORIDE ER 10 MEQ TAB.ER.PRT PO SCH (08:33)
[2017-06-12] MEDS: amLODIPine 5 MG TAB PO SCH (08:33)
[2017-06-12 09:26] LABS: Basophils % (A) 0 %; Eosinophils # (A) 0.6 k/uL (0-0.7); Eosinophils % (A) 7 %; HCT 32.5 % (39.0-53.0); HGB 10.7 gm/dL (13.0-17.5); Lymphocytes # (A) 1.9 k/uL (1.0-4.8); Lymphocytes % (A) 21 %; MCH 28.1 pg (25.0-35.0); MCHC 32.9 g/dL (31.0-37.0); MCV 85.6 fL (80.0-100.0); Mean Platelet Volume 8.3; Monocytes # (A) 0.7 k/uL (0-1.0); Monocytes % (A) 8 %; Neutrophils # (A) 5.6 k/uL (1.3-7.7); Neutrophils % (A) 62 %; Platelet Count 139 k/uL (150-450); RDW 15.2 % (11.5-15.5); WBC 9.2 k/uL (3.8-10.6)
[2017-06-12 09:44] LABS: Calcium 8.8 mg/dL (8.4-10.2); Potassium 4.7 mmol/L (3.5-5.1)
[2017-06-12 11:45] LABS: Glucose,Whole Blood 192 mg/dL (75-99)
[2017-06-12] MEDS ORDERED: NON-FORMULARY DRUG (Liraglutide [Victoza 3-Pak] 1.8 MG) SQ SCH (12:30)
[2017-06-12 17:22] LABS: Glucose,Whole Blood 219 mg/dL (75-99)
[2017-06-12] MEDS: VANCOMYCIN 2,000 MG in SODIUM CHLORIDE 0.9% 500 ML IVPB SCH (17:43)
[2017-06-12 20:28] LABS: Glucose,Whole Blood 234 mg/dL (75-99)
[2017-06-12] MEDS: INSULIN DETEMIR 100 UNIT/ML 10 ML VIAL SQ SCH (22:46)
--- NOTE | 2017-06-12 23:01 | P.PN ---
Subjective Progress Note Date: 06/12/17 Principal diagnosis: Cellulitis Patient is a 52-year-old male with a known history of hypertension, diabetes type 2, diabetic peripheral neuropathy and Charcot joint with the left foot surgery in September 2016 came to the hospital with complaints of right leg swelling and rash and redness. Swelling and pain started approximately 36 hours prior to admission associated with fever. Patient was also having cramping pain radiating to the right thigh. No nausea vomiting or abdominal pain. No chest pain no shortness of breath. denied any cough or congestion. Patient denied any trauma. No insect bite. No recent travel. Lower extremity duplex is negative for any DVT X-ray of the foot showed soft tissue swelling and findings of charcoal joint. 06/12/2017 Patient denied any chest pain or shortness of breath. Right leg swelling and pain improving. Leukocytosis improved as well. No fever no chills. No acute overnight issues. Patient is being continued on antibiotics in the form of vancomycin. All other review of systems negative except the above Current medications reviewed Objective - Vital Signs Vital signs: Vital Signs Temp 97.4 F L 06/12/17 15:00 Pulse 77 06/12/17 15:32 Resp 16 06/12/17 15:32 BP 126/79 06/12/17 15:00 Pulse Ox 94 L 06/12/17 15:00 Intake & Output 06/12/17 06/12/17 06/13/17 06:59 18:59 06:59 Intake Total 1700 1025 Balance 1700 1025 Intake: Intake, IV Titration 1100 1025 Amount Sodium Chloride 0.9% 1, 600 525 000 ml @ 75 mls/hr IV . [id number] SAVANNAH Rx#:[id number] Vancomycin 2,000 mg In 500 Sodium Chloride 0.9% 500 ml @ 167 mls/hr IVPB Q12H SAVANNAH Rx#:[id number] Vancomycin 2,000 mg In 500 Sodium Chloride 0.9% 500 ml @ 167 mls/hr IVPB Q16H SAVANNAH Rx#:[id number] Oral 600 Other: Voiding Method Toilet # Voids 1 - Exam PHYSICAL EXAMINATION: Patient is lying in the bed comfortably, no acute distress, awake alert and oriented.. HEENT: Normocephalic. Neck is supple. Pupils reactive. Nostrils clear. Oral cavity is moist. Ears reveal no drainage. Neck reveals no JVD, carotid bruits, or thyromegaly. CHEST EXAMINATION: Trachea is central. Symmetrical expansion. Lung rivera clear to auscultation and percussion. CARDIAC: Normal S1, S2 with no gallops. No murmurs ABDOMEN: Soft. Bowel sounds normal. No organomegaly. No abdominal bruits. Extremities: reveal no edema. No clubbing or cyanosis Neurologically awake, alert, oriented x3 with well-coordinated movements. No focal deficits noted Skin: No rash or skin lesions. Right lower extremity swelling or redness to right knee improved. Tender to palpation and warm Psychiatric: Coperative. Nonsuicidal Musculoskeletal: No joint swelling . Patient does have Charcot deformity of the foot. Normal range of motion. - Labs CBC & Chem 7: 06/12/17 08:50 06/12/17 08:50 Labs: Abnormal Lab Results - Last 24 Hours (Table) 06/12/17 06/12/17 06/12/17 Range/Units 07:45 08:50 08:50 RBC 3.80 L (4.30-5.90) m/uL Hgb 10.7 L (13.0-17.5) gm/dL Hct 32.5 L (39.0-53.0) % Plt Count 139 L (150-450) k/uL BUN 24 H (9-20) mg/dL Creatinine 1.36 H (0.66-1.25) mg/dL Glucose 261 H (74-99) mg/dL POC Glucose (mg/dL) 130 H (75-99) mg/dL 06/12/17 06/12/17 06/12/17 Range/Units 11:42 17:18 20:26 RBC (4.30-5.90) m/uL Hgb (13.0-17.5) gm/dL Hct (39.0-53.0) % Plt Count (150-450) k/uL BUN (9-20) mg/dL Creatinine (0.66-1.25) mg/dL Glucose (74-99) mg/dL POC Glucose (mg/dL) 192 H 219 H 234 H (75-99) mg/dL Microbiology - Last 24 Hours (Table) 06/11/17 13:11 Blood Culture - Preliminary Blood No Growth after 24 hours Assessment and Plan Assessment: Right lower activity cellulitis Sepsis secondary to cellulitis Charcot foot Diabetes type 2 Peripheral neuropathy diabetic Hypertension Chronic lower back pain shoulder pain and neck pain Morbid obesity with BMI 40.7 History of smoking and current marijuana use DVT prophylaxis Plan: Patient will be continued on gentle hydration and antibiotics in the form of vancomycin. Lower extremity duplex is negative for DVT. Continue the home medications and insulin dosing. Pain management. Will continue to follow closely and further recommendations based on the clinical course. Time with Patient: Greater than 30
[2017-06-13] MEDS: VANCOMYCIN 2,000 MG in SODIUM CHLORIDE 0.9% 500 ML IVPB SCH (05:45)
[2017-06-13] MEDS: HYDROcodone/APAP 10-325MG 1 EACH TAB PO PRN ×3 (05:45→18:43)
[2017-06-13 07:11] LABS: Glucose,Whole Blood 126 mg/dL (75-99)
[2017-06-13] MEDS: SODIUM CHLORIDE 0.9% 1,000 ML IV SCH (07:54)
[2017-06-13] MEDS: GLIMEPIRIDE 4 MG TAB PO SCH ×2 (07:56→17:43)
[2017-06-13] MEDS: metFORMIN 500 MG TAB PO SCH ×2 (07:56→17:43)
[2017-06-13] MEDS: amLODIPine 5 MG TAB PO SCH (07:58)
[2017-06-13] MEDS: FUROSEMIDE 20 MG TAB PO SCH (07:59)
[2017-06-13] MEDS: ATORVASTATIN 40 MG TAB PO SCH (07:59)
[2017-06-13] MEDS: LISINOPRIL 20 MG TAB PO SCH (07:59)
[2017-06-13] MEDS: HEPARIN SODIUM,PORCINE 5,000 UNIT/ML 1 ML VIAL SQ SCH ×3 (08:00→23:47)
[2017-06-13] MEDS: POTASSIUM CHLORIDE ER 10 MEQ TAB.ER.PRT PO SCH (08:00)
[2017-06-13] MEDS: PREGABALIN 100 MG CAP PO SCH ×2 (08:02→21:45)
[2017-06-13 08:05] LABS: Basophils # (A) 0.1 k/uL (0-0.2); Basophils % (A) 1 %; Eosinophils # (A) 0.7 k/uL (0-0.7); Eosinophils % (A) 10 %; HCT 33.8 % (39.0-53.0); HGB 11.5 gm/dL (13.0-17.5); Lymphocytes # (A) 1.9 k/uL (1.0-4.8); Lymphocytes % (A) 25 %; MCH 28.2 pg (25.0-35.0); MCV 82.8 fL (80.0-100.0); Mean Platelet Volume 7.1; Monocytes # (A) 0.5 k/uL (0-1.0); Monocytes % (A) 7 %; Neutrophils % (A) 54 %; Platelet Count 181 k/uL (150-450); RBC 4.08 m/uL (4.30-5.90); RDW 14.6 % (11.5-15.5); WBC 7.4 k/uL (3.8-10.6)
[2017-06-13 08:20] LABS: Calcium 9.2 mg/dL (8.4-10.2); Potassium 4.8 mmol/L (3.5-5.1)
[2017-06-13] MEDS: POLYETHYLENE GLYCOL 3350 17 GM POWD.PACK PO SCH (10:21)
[2017-06-13 11:55] LABS: Glucose,Whole Blood 134 mg/dL (75-99)
[2017-06-13 17:25] LABS: Glucose,Whole Blood 163 mg/dL (75-99)
[2017-06-13] MEDS: ceFAZolin IN SWFI 2 GM/20 ML SYRINGE IVP SCH ×2 (17:43→23:47)
[2017-06-13 20:53] LABS: Glucose,Whole Blood 175 mg/dL (75-99)
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
[2017-06-13] MEDS: INSULIN DETEMIR 100 UNIT/ML 10 ML VIAL SQ SCH (21:44)
[2017-06-14] MEDS: HYDROcodone/APAP 10-325MG 1 EACH TAB PO PRN ×3 (01:14→14:00)
[2017-06-14] MEDS ORDERED: VANCOMYCIN TROUGH DUE 1 EACH MISC MISCELLANE ONE (05:00)
[2017-06-14] MEDS: SODIUM CHLORIDE 0.9% 1,000 ML IV SCH (05:18)
[2017-06-14 07:43] LABS: Glucose,Whole Blood 131 mg/dL (75-99)
[2017-06-14] MEDS: metFORMIN 500 MG TAB PO SCH (07:48)
[2017-06-14] MEDS: GLIMEPIRIDE 4 MG TAB PO SCH (07:49)
[2017-06-14] MEDS: POLYETHYLENE GLYCOL 3350 17 GM POWD.PACK PO SCH (07:49)
[2017-06-14] MEDS: LISINOPRIL 20 MG TAB PO SCH (07:49)
[2017-06-14] MEDS: POTASSIUM CHLORIDE ER 10 MEQ TAB.ER.PRT PO SCH (07:50)
[2017-06-14] MEDS: amLODIPine 5 MG TAB PO SCH (07:50)
[2017-06-14] MEDS: FUROSEMIDE 20 MG TAB PO SCH (07:50)
[2017-06-14] MEDS: PREGABALIN 100 MG CAP PO SCH (07:53)
[2017-06-14] MEDS: ATORVASTATIN 40 MG TAB PO SCH (07:53)
[2017-06-14] MEDS: HEPARIN SODIUM,PORCINE 5,000 UNIT/ML 1 ML VIAL SQ SCH ×2 (07:53→16:23)
[2017-06-14] MEDS: ceFAZolin IN SWFI 2 GM/20 ML SYRINGE IVP SCH ×2 (07:57→15:54)
[2017-06-14 09:27] VITALS: BP 134/75; PULSE 77; RESP 18; TEMP 97.9
[2017-06-14 12:09] LABS: Glucose,Whole Blood 131 mg/dL (75-99)
--- NOTE | 2017-06-14 13:01 | PN ---
PROGRESS NOTE DATE OF SERVICE: 06/14/2017. REASON FOR FOLLOWUP: Right lower extremity cellulitis. INTERVAL HISTORY: The patient is afebrile. He is breathing comfortably. Right leg pain and swelling has improved. Redness has decreased. Denies having any chest pain, shortness of breath or cough. No abdominal pain or diarrhea. PHYSICAL EXAMINATION: On examination, blood pressure is 134/75 with a pulse of 77, temperature 97.9. He is 94% on room air. General description is a middle aged male up in the bed in no distress. RESPIRATORY SYSTEM: Unlabored breathing, clear to auscultation anteriorly. HEART: S1, S2. Regular rate and rhythm. ABDOMEN: Soft, no tenderness. Right leg swelling and redness has improved, no drainage. LABS: White count 7.4. Blood culture negative. DIAGNOSTIC IMPRESSION AND PLAN: Patient with acute right lower extremity cellulitis. The patient seemed to have shown overall clinical improvement. We will finish therapy with oral Keflex for another week. A prescription was sent to the pharmacy. Continue supportive care. MMODL / ADOLFON: [id number] /
--- NOTE | 2017-06-15 08:41 | DS ---
DISCHARGE SUMMARY FINAL DIAGNOSES: 1. Right lower extremity cellulitis with possible sepsis. 2. Right leg varicose veins. 3. Charcot foot. 4. Diabetes mellitus type 2. 5. Peripheral neuropathy, diabetic. 6. Hypertension. 7. Chronic low back pain, shoulder pain, neck pain. 8. Morbid obesity with BMI of 40.7. 9. History of smoking. 10.History of THC. 11.DVT prophylaxis. DISCHARGE DISPOSITION: The patient is being discharged in stable condition with guarded prognosis. HISTORY OF PRESENT ILLNESS: This 52-year-old gentleman with a past medical history of multiple medical problems as mentioned was admitted with right lower extremity cellulitis and possible sepsis, treated with antibiotics. The cultures are negative so far. The patient improved significantly. Infectious disease saw the patient. Local treatment is also given. On exam, vital signs are stable. Cardiovascular: S1, S2 Abdomen: Soft. Right leg minimal varicose veins and as well as some erythema also present. DISCHARGE ADVICE AND MEDICATIONS: 1. Diet is cardiac. 2. Activity limited until followup. 3. Follow up with Dr. Boyle in 2-3 days. 4. Follow up with Infectious Disease and Vascular Surgery as recommended. MEDICATIONS: 1. Ventolin 1-2 puffs q.6h p.r.n. 2. Norvasc 5 mg p.o. daily. 3. Lipitor 40 mg daily. 4. Lotensin 20 mg p.o. daily. 5. Pulmicort 1 puff b.i.d. 6. Tums 500 mg t.i.d. p.r.n. 7. Keflex 500 mg q.6h for 1 week. 8. Lasix 20 mg p.o. daily. 9. Amaryl 4 mg p.o. b.i.d. 10.[place] 10 mg 1 tablets q.6h p.r.n. 11.Lantus 60 units subcu q.h.s. 12.Victoza 1.8 subcu with lunch. 13.Glucophage 1000 mg p.o. b.i.d. 14.K-Dur 10 mEq p.o. daily. 15.Lyrica 200 mg p.o. b.i.d. 16.Zantac 75 mg p.o. b.i.d. Once again, the patient is discharged in stable condition with guarded prognosis. MMODL / IJN: [id number] /
--- NOTE | 2017-06-17 21:32 | P.PN ---
Subjective Progress Note Date: 06/13/17 Principal diagnosis: Cellulitis Patient is a 52-year-old male with a known history of hypertension, diabetes type 2, diabetic peripheral neuropathy and Charcot joint with the left foot surgery in September 2016 came to the hospital with complaints of right leg swelling and rash and redness. Swelling and pain started approximately 36 hours prior to admission associated with fever. Patient was also having cramping pain radiating to the right thigh. No nausea vomiting or abdominal pain. No chest pain no shortness of breath. denied any cough or congestion. Patient denied any trauma. No insect bite. No recent travel. Lower extremity duplex is negative for any DVT X-ray of the foot showed soft tissue swelling and findings of charcoal joint. 06/12/2017 Patient denied any chest pain or shortness of breath. Right leg swelling and pain improving. Leukocytosis improved as well. No fever no chills. No acute overnight issues. Patient is being continued on antibiotics in the form of vancomycin. 06/13/2017 patient is still having right leg swelling but improving slowly. Will be continued on vancomycin and monitor renal function. We will consider ID consult and follow up closely. No fever no chills otherwise. All other review of systems negative except the above Current medications reviewed Objective - Vital Signs Vital signs: Vital Signs Temp 97.8 F 06/13/17 07:00 Pulse 80 06/13/17 07:00 Resp 18 06/13/17 07:00 BP 127/74 06/13/17 07:00 Pulse Ox 96 06/13/17 07:00 Intake & Output 06/12/17 06/13/17 06/13/17 18:59 06:59 18:59 Intake Total 1025 1410 Balance 1025 1410 Intake: Intake, IV Titration 1025 820 Amount Sodium Chloride 0.9% 1, 525 320 000 ml @ 40 mls/hr IV . Q24H SAVANNAH Rx#:[id number] Vancomycin 2,000 mg In 500 500 Sodium Chloride 0.9% 500 ml @ 167 mls/hr IVPB Q12H SAVANNAH Rx#:[id number] Oral 590 Other: Voiding Method Toilet Toilet Toilet # Voids 2 - Exam PHYSICAL EXAMINATION: Patient is lying in the bed comfortably, no acute distress, awake alert and oriented.. HEENT: Normocephalic. Neck is supple. Pupils reactive. Nostrils clear. Oral cavity is moist. Ears reveal no drainage. Neck reveals no JVD, carotid bruits, or thyromegaly. CHEST EXAMINATION: Trachea is central. Symmetrical expansion. Lung rivera clear to auscultation and percussion. CARDIAC: Normal S1, S2 with no gallops. No murmurs ABDOMEN: Soft. Bowel sounds normal. No organomegaly. No abdominal bruits. Extremities: reveal no edema. No clubbing or cyanosis Neurologically awake, alert, oriented x3 with well-coordinated movements. No focal deficits noted Skin: No rash or skin lesions. Right lower extremity swelling or redness to right knee improved. Tender to palpation and warm Psychiatric: Coperative. Nonsuicidal Musculoskeletal: No joint swelling . Patient does have Charcot deformity of the foot. Normal range of motion. - Labs CBC & Chem 7: 06/13/17 07:30 06/13/17 07:30 Labs: Abnormal Lab Results - Last 24 Hours (Table) 06/12/17 06/12/17 06/13/17 Range/Units 17:18 20:26 06:58 RBC (4.30-5.90) m/uL Hgb (13.0-17.5) gm/dL Hct (39.0-53.0) % BUN (9-20) mg/dL Glucose (74-99) mg/dL POC Glucose (mg/dL) 219 H 234 H 126 H (75-99) mg/dL 06/13/17 06/13/17 06/13/17 Range/Units 07:30 07:30 11:43 RBC 4.08 L (4.30-5.90) m/uL Hgb 11.5 L (13.0-17.5) gm/dL Hct 33.8 L (39.0-53.0) % BUN 22 H (9-20) mg/dL Glucose 131 H (74-99) mg/dL POC Glucose (mg/dL) 134 H (75-99) mg/dL Microbiology - Last 24 Hours (Table) 06/11/17 13:11 Blood Culture - Preliminary Blood No Growth after 24 hours Assessment and Plan Assessment: Right lower activity cellulitis Sepsis secondary to cellulitis Charcot foot Diabetes type 2 Peripheral neuropathy diabetic Hypertension Chronic lower back pain shoulder pain and neck pain Morbid obesity with BMI 40.7 History of smoking and current marijuana use DVT prophylaxis Plan: Patient will be continued on gentle hydration and antibiotics in the form of vancomycin. Lower extremity duplex is negative for DVT. Continue the home medications and insulin dosing. Pain management. Will continue to follow closely and further recommendations based on the clinical course.
== END 2017-06-14 16:54 | disposition home or self-care (01) | DRG 872 ==
LOC: EC 10:19 → 5MS5E 15:39
PROVIDERS: ADMIT Internal Medicine; ATTEND Internal Medicine
DX: A41.9 Sepsis, unspecified organism (principal); E11.42 Type 2 diabetes mellitus with diabetic polyneuropathy; Z68.41 Body mass index [BMI] 40.0-44.9, adult; L03.115 Cellulitis of right lower limb; B95.5 Unspecified streptococcus as the cause of diseases classified elsewhere; B95.62 Methicillin resistant Staphylococcus aureus infection as the cause of diseases classified elsewhere; E11.610 Type 2 diabetes mellitus with diabetic neuropathic arthropathy; M25.519 Pain in unspecified shoulder; M54.2 Cervicalgia; M54.5 Low back pain; I83.91 Asymptomatic varicose veins of right lower extremity; I89.1 Lymphangitis; I10 Essential (primary) hypertension; G89.29 Other chronic pain; E66.01 Morbid (severe) obesity due to excess calories; J45.909 Unspecified asthma, uncomplicated; E78.5 Hyperlipidemia, unspecified; Z79.51 Long term (current) use of inhaled steroids; Z79.4 Long term (current) use of insulin; Z79.899 Other long term (current) drug therapy; Z87.891 Personal history of nicotine dependence
CPT/HCPCS: 36415; 80048; 80053; 83605; 85025; 87040; 96374; 99284

== ENCOUNTER → 2017-08-15 | Outpatient (CLI) | payer OTHER | END | disposition home or self-care (01) | LOC: LABWHC1 12:09 | PROVIDERS: ATTEND Orthopaedic Surgery | DX: E87.5 Hyperkalemia (principal); M14.672 Charcot's joint, left ankle and foot; M79.672 Pain in left foot; E11.42 Type 2 diabetes mellitus with diabetic polyneuropathy; F17.200 Nicotine dependence, unspecified, uncomplicated; Z48.89 Encounter for other specified surgical aftercare; Z98.1 Arthrodesis status; Z79.4 Long term (current) use of insulin; Z98.890 Other specified postprocedural states | CPT/HCPCS: 36415; 82306; 84132 ==

== ENCOUNTER 2018-01-02 13:38 | Inpatient (IN) | payer MEDICARE, OTHER ==
[2018-01-02] MEDS ORDERED: VANCOMYCIN IV PER PHARMACY 1 EACH MISC MISCELLANE PRN (13:56)
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
[2018-01-02] MEDS ORDERED: LACTATED RINGERS 1,000 ML IV ONE (16:49)
[2018-01-02] MEDS ORDERED: LIDOCAINE 1% 20 ML VIAL (10MG/ML) FOR IV START INTRADERMA ONE (16:49)
[2018-01-02] MEDS ORDERED: METOCLOPRAMIDE 5 MG/ML 2 ML VIAL IVP STA (16:51)
[2018-01-02] MEDS ORDERED: FAMOTIDINE 20 MG/2 ML VIAL IVP STA (16:51)
[2018-01-02 16:54] LABS: Glucose,Whole Blood 317 mg/dL (75-99)
[2018-01-02 16:55] LABS: Basophils % (A) 0 %; Eosinophils # (A) 0.2 k/uL (0-0.7); Eosinophils % (A) 1 %; Lymphocytes # (A) 0.7 k/uL (1.0-4.8); Lymphocytes % (A) 5 %; MCH 28.6 pg (25.0-35.0); MCHC 31.4 g/dL (31.0-37.0); MCV 91.1 fL (80.0-100.0); Mean Platelet Volume 6.9; Monocytes # (A) 0.2 k/uL (0-1.0); Monocytes % (A) 1 %; Neutrophils # (A) 12.5 k/uL (1.3-7.7); Neutrophils % (A) 92 %; Platelet Count 322 k/uL (150-450); RBC 3.84 m/uL (4.30-5.90); WBC 13.6 k/uL (3.8-10.6)
[2018-01-02] MEDS ORDERED: INSULIN REGULAR 100 UNIT/ML VIAL SQ ONE (17:04)
[2018-01-02 17:11] LABS: Albumin 3.5 g/dL (3.5-5.0); C Reactive Protein 34.6 mg/L (<10.0); Calcium 9.5 mg/dL (8.4-10.2); Total Bilirubin 0.4 mg/dL (0.2-1.3); Total Protein 6.8 g/dL (6.3-8.2)
[2018-01-02 17:12] LABS: Potassium 6.2 mmol/L (3.5-5.1)
[2018-01-02 17:34] LABS: Erythrocyte Sedimentation Rate 93 mm/hr (0-15)
[2018-01-02] MEDS ORDERED: SODIUM POLYSTYRENE SULFONATE 15 GM/60 ML BOTTLE PO STA (17:36)
[2018-01-02] MEDS ORDERED: VANCOMYCIN 2,000 MG in SODIUM CHLORIDE 0.9% 500 ML 500 ML IVPB ONE (18:00)
[2018-01-02 18:18] VITALS: BMI 39.5
[2018-01-02] MEDS: HYDROcodone/APAP 10-325MG 1 EACH TAB PO PRN (19:57)
[2018-01-02 20:13] LABS: Glucose,Whole Blood 396 mg/dL (75-99)
[2018-01-02] MEDS: INSULIN ASPART 100 UNIT/ML 1 ML 10 ML VIAL SQ SCH (20:47)
[2018-01-02] MEDS ORDERED: ALBUTEROL NEBULIZED 2.5 MG/3 ML INHALATION PRN (22:04)
[2018-01-02] MEDS ORDERED: FAMOTIDINE 20 MG TAB PO PRN (22:04)
[2018-01-02] MEDS: SODIUM CHLORIDE 0.9% 1,000 ML IV SCH (22:19)
[2018-01-03] MEDS: HYDROcodone/APAP 10-325MG 1 EACH TAB PO PRN ×2 (01:55→20:22)
[2018-01-03] MEDS: FLUTICASONE 110 MCG INHALER INHALATION SCH ×2 (07:09→19:29)
[2018-01-03 07:22] LABS: Glucose,Whole Blood 203 mg/dL (75-99)
[2018-01-03] MEDS: ATORVASTATIN 40 MG TAB PO SCH (08:09)
[2018-01-03] MEDS: PREGABALIN 100 MG CAP PO SCH ×2 (08:09→20:22)
[2018-01-03 08:12] LABS: Albumin 3.2 g/dL (3.5-5.0); Calcium 9.3 mg/dL (8.4-10.2); Potassium 5.7 mmol/L (3.5-5.1); Total Bilirubin 0.2 mg/dL (0.2-1.3); Total Protein 6.4 g/dL (6.3-8.2)
[2018-01-03] MEDS: INSULIN ASPART 100 UNIT/ML 1 ML 10 ML VIAL SQ SCH ×4 (08:15→20:23)
[2018-01-03] MEDS: VANCOMYCIN 2,250 MG in SODIUM CHLORIDE 0.9% 500 ML 500 ML IVPB SCH (08:16)
[2018-01-03] MEDS: SODIUM CHLORIDE 0.9% 1,000 ML IV SCH ×2 (08:18→14:06)
[2018-01-03] MEDS ORDERED: HYDROmorphone 1 MG/ML 1 ML SYRINGE IVP PRN ×2 (08:26)
[2018-01-03 08:42] LABS: Basophils % (A) 0 %; Eosinophils # (A) 0.1 k/uL (0-0.7); Eosinophils % (A) 1 %; HCT 32.8 % (39.0-53.0); HGB 10.5 gm/dL (13.0-17.5); Lymphocytes # (A) 1.2 k/uL (1.0-4.8); Lymphocytes % (A) 12 %; MCH 28.7 pg (25.0-35.0); MCHC 32.1 g/dL (31.0-37.0); MCV 89.2 fL (80.0-100.0); Mean Platelet Volume 7.1; Monocytes # (A) 0.5 k/uL (0-1.0); Monocytes % (A) 4 %; Neutrophils # (A) 8.7 k/uL (1.3-7.7); Neutrophils % (A) 82 %; Platelet Count 335 k/uL (150-450); RBC 3.67 m/uL (4.30-5.90); RDW 12.8 % (11.5-15.5); WBC 10.6 k/uL (3.8-10.6)
[2018-01-03] MEDS ORDERED: amLODIPine 5 MG TAB PO SCH (09:00)
[2018-01-03] MEDS: HYDROmorphone 1 MG/ML 1 ML SYRINGE IVP PRN ×2 (09:20→16:09)
[2018-01-03] MEDS ORDERED: SODIUM POLYSTYRENE SULFONATE 15 GM/60 ML BOTTLE PO STA (10:08)
[2018-01-03] MEDS ORDERED: DEXTROSE 50%-WATER 50 ML SYRINGE IVP STA (10:23)
[2018-01-03] MEDS ORDERED: DEXTROSE 50%-WATER 50 ML SYRINGE IVP ONE (10:32)
[2018-01-03] MEDS ORDERED: INSULIN REGULAR 100 UNIT/ML VIAL IV ONE (10:32)
[2018-01-03] MEDS ORDERED: SODIUM BICARB 8.4% 50 ML SYR (1 MEQ/ML) IV ONE (10:32)
[2018-01-03] MEDS ORDERED: CALCIUM CHLORIDE 1,000 MG in SODIUM CHLORIDE 0.9% 100 ML IV ONE (10:32)
[2018-01-03 11:12] LABS: Glucose,Whole Blood 161 mg/dL (75-99)
[2018-01-03] MEDS: NON-FORMULARY DRUG (Liraglutide [Victoza 3-Pak] 1.8 MG) SQ SCH (11:40)
[2018-01-03] MEDS ORDERED: IV FLUID CONTINUATION 550 ML IV ONE (11:45)
[2018-01-03 11:51] LABS: Glucose,Whole Blood 182 mg/dL (75-99)
[2018-01-03] MEDS ORDERED: LIDOCAINE 1% 20 ML VIAL (10MG/ML) FOR IV START INTRADERMA ONE (11:57)
[2018-01-03] MEDS ORDERED: PROPOFOL 10 MG/ML 20 ML VIAL IV ONE (12:13)
[2018-01-03] MEDS ORDERED: LIDOCAINE 1% INJ 10MG/ML (20 ML MDV) ONE (12:13)
[2018-01-03] MEDS ORDERED: MIDAZOLAM 2 MG/2 ML VIAL ONE (12:13)
[2018-01-03] MEDS ORDERED: KETAMINE 10 MG/ML 20 ML VIAL ONE (12:13)
[2018-01-03] MEDS ORDERED: fentaNYL (PF) 50 MCG/ML 2 ML AMP ONE (12:13)
--- NOTE | 2018-01-03 13:01 | P.OP ---
Date of Procedure: 01/03/18 Preoperative Diagnosis: 1. Poorly controlled type 2 diabetes 2. Left foot Charcot arthritis 3. Left foot abscess and foreign body Postoperative Diagnosis: Same Procedure(s) Performed: 1. Irrigation and debridement of left foot wound measuring 4 cm (sharp debridement using a scalpel of nonviable skin and subcutaneous tissue down to the plantar fascia) 2. Application of wound VAC, left foot 3. Foreign body removal left foot Anesthesia: MAC Surgeon: Isidro Ramos Estimated Blood Loss (ml): 10 IV fluids (ml): 300 Pathology: none sent Condition: stable Disposition: PACU Indications for Procedure: The patient is a poorly controlled diabetic with a history of Charcot arthritis and left foot surgery. Several weeks ago the patient was walking barefoot in his house when he stepped on a piece of glass. He developed a worsening infection and abscess which failed to improve with local wound care and antibiotics. I saw the patient in the office yesterday and he was found to have a draining abscess on his foot. He was sent to the hospital for IV antibiotics and surgery. We discussed potential risks and complications including but not limited to worsening infection, need for further surgery, and possibly an amputation. The patient voiced his understanding of this and understands his increased risk for amputation given his poorly controlled diabetes and history of Charcot arthritis. Operative Findings: There was a superficial abscess on the plantar aspect of the midfoot that tracked down to but not through the plantar fascia. There was a small piece of glass in the superficial soft tissue under the midfoot. Description of Procedure: The patient was identified Holding and the correct left foot was marked with my initials. I reviewed the consent form with the patient and all his questions were answered. The patient was then brought back to the operating room. He was positioned on his gurney and all bony prominences well-padded. A sedation was administered by anesthesia. The left leg was then prepped and draped in the standard sterile fashion. Prior to starting surgery timeout was performed identifying the correct patient, operative extremity, and procedure. Next I began by debriding the nonviable skin with a pickup and paroxysmal scissors on the plantar aspect of the foot. A 4 cm longitudinal incision was made directly over the open draining wound and area of fluctuance. A large amount of purulence was expressed. A piece of glass was identified and handed off to the back table. The wound tracked down to but not through the plantar fascia. Using a scalpel and curette nonviable skin and subcutaneous tissue was sharply debrided area and the wound was irrigated with sterile saline and cystoscopy tubing. A wound VAC was then placed. A sterile dressing was applied and the patient was transferred to PACU having part of the procedure well. Plan: The patient will need tight glycemic control and long-term management of his diabetes by internal medicine. He will need a walking boot for his foot. He is to remain nonweightbearing until the wound heals. I will defer to infectious disease for long-term wound care and antibiotics per the patient's request and since he is artery and established patient of the wound Center.
[2018-01-03 13:16] LABS: Glucose,Whole Blood 76 mg/dL (75-99)
[2018-01-03] MEDS: HYDROmorphone 1 MG/ML 1 ML SYRINGE IVP ONE ×2 (13:26→13:35)
[2018-01-03] MEDS ORDERED: CALCIUM CARBONATE 500 MG CHEWABLE PO PRN (17:22)
[2018-01-03 17:37] LABS: Glucose,Whole Blood 261 mg/dL (75-99)
--- NOTE | 2018-01-03 20:14 | CONS ---
CONSULTATION This patient is followed by Dr. Boyle in the outpatient setting. DATE OF SERVICE: 01/03/2018 REASON FOR CONSULTATION: Advice regarding hypokalemia and other medical issues, requested by Dr. Ramos. HISTORY OF PRESENT ILLNESS: This 52-year-old gentleman with a past medical history of multiple medical problems, including asthma, diabetes mellitus, hypertension, hyperlipidemia, Charcot feet , was admitted for left foot Charcot arthritis and left foot abscess and foreign body by Dr. Ramos for possible irrigation and debridement. However, the patient's potassium was high; yesterday it was 6.2. Creatinine was 1.91. Surgery was canceled. Potassium this morning was again at 5.7. The patient is being closely monitored at this time. There is no history of any fever, rigor or chills. No history of headache, loss of consciousness, seizures. PAST MEDICAL HISTORY: 1. History of asthma. 2. Diabetes mellitus. 3. Hypertension. 4. Hyperlipidemia. 5. History of Charcot feet. 6. Neuropathy. HOME MEDICATIONS: 1. Glucophage 1000 mg p.o. b.i.d. 2. Norvasc 5 mg p.o. daily. 3. Zantac 75 mg b.i.d. p.r.n. 4. Lyrica 200 mg p.o. b.i.d. 5. K-Dur 10 mEq p.o. daily. 6. Victoza 1.8 subcutaneously with lunch. 7. Basaglar 16 units subcutaneously at bedtime. 8. Hobart 10 mg 1-2 q.6 p.r.n. 9. Amaryl 4 mg p.o. b.i.d. 10.Lasix 20 mg p.o. daily. 11.Keflex 500 mg q.6 p.r.n. 12.Tums 500 mg t.i.d. p.r.n. 13.Pulmicort 1 puff b.i.d. p.r.n. 14.Lotensin 20 mg p.o. daily. 15.Lipitor 40 mg p.o. daily. 16.Ventolin 1 mg q.i.d. p.r.n. 17.Ventolin HFA 1-2 puffs q.6 p.r.n. ALLERGIES: NONE. FAMILY HISTORY: History of cancer in the family. SOCIAL HISTORY: Previous history of smoking. History of THC. REVIEW OF SYSTEMS: ENT: Diminished hearing. Diminished vision. CARDIOVASCULAR SYSTEM: No angina, palpitations. RESPIRATORY SYSTEM: As mentioned earlier. GI: No nausea, vomiting. : No dysuria or retention. NERVOUS SYSTEM: As mentioned earlier. ALLERGY/IMMUNOLOGY: No asthma, hayfever. MUSCULOSKELETAL: As mentioned earlier. HEMATOLOGY/ONCOLOGY: As mentioned earlier. ENDOCRINE: As mentioned earlier. CONSTITUTIONAL: As mentioned earlier. DERMATOLOGY: As mentioned earlier. RHEUMATOLOGY: Negative. PSYCHIATRY: As mentioned earlier. PHYSICAL EXAMINATION: Patient alert and oriented x3. Pulse 88, blood pressure 130/83, respiration 16, temperature 97.4, pulse ox 96% on room air. HEENT: Conjunctivae normal. Oral mucosa moist. NECK: No jugular venous distention. No carotid bruit. No lymph node enlargement. CARDIOVASCULAR SYSTEM: S1, S2 muffled. No S3. No S4. RESPIRATORY SYSTEM: Breath sounds diminished at the bases. A few scattered rhonchi and crackles. ABDOMEN: Soft, obese, non-tender. No mass palpable. LEGS: Bilateral leg edema. Left diabetic foot and ulcer. Charcot feet also present. NERVOUS SYSTEM: Higher functions as mentioned earlier. Peripheral neuropathy present. LYMPHATICS: No lymph node palpable in neck, axillae or groin. SKIN: As mentioned earlier. JOINTS: No active deforming arthropathy. Otherwise, left Charcot foot. LABS: WBC 10.6, hemoglobin 10.5, sodium 140, potassium 5.7, creatinine 1.73. ASSESSMENT: 1. Left diabetic foot abscess ulcer, Charcot feet and foreign body. 2. Diabetes mellitus, type 2. 3. Hyperkalemia. 4. Acute on chronic kidney disease . 5. Chronic kidney disease, stage III. 6. Diabetic peripheral neuropathy. 7. History of asthma. 8. Hypertension. 9. Hyperlipidemia. 10.History of degenerative joint disease. 11.Remote history of nicotine dependence. 12.History of tetrahydrocannabinol. 13.Obesity with body mass index of 39.6. RECOMMENDATIONS AND DISCUSSION: In this 52-year-old woman who presented with multiple complex medical issues, I recommend continuing with the current medications. I would recommend insulin, potassium regimen and repeat potassium. The potassium is still high. Patient will require more Kayexalate probably after the surgery. Otherwise, patient is currently stable. I would also recommend holding the potassium and GUERITA inhibitors and ARBs currently. Medications were checked and reconciled. We will follow the patient closely with you. See orders for further details. DVT prophylaxis. Incentive spirometry. Thank you, Dr. Ramos, for letting us participate in the care of this patient. Patient may be asked to follow up with primary physician closely after discharge. MMODL / IJN: [id number] / ARABELLA
[2018-01-03 20:16] LABS: Glucose,Whole Blood 310 mg/dL (75-99)
[2018-01-03] MEDS: INSULIN DETEMIR 100 UNIT/ML 10 ML VIAL SQ SCH (20:22)
[2018-01-03] MEDS: HEPARIN SODIUM,PORCINE 5,000 UNIT/ML 1 ML VIAL SQ SCH (20:22)
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
[2018-01-04] MEDS: HYDROcodone/APAP 10-325MG 1 EACH TAB PO PRN ×4 (02:58→23:17)
[2018-01-04] MEDS: SODIUM CHLORIDE 0.9% 1,000 ML IV SCH ×2 (05:10→08:40)
[2018-01-04 06:58] LABS: Glucose,Whole Blood 206 mg/dL (75-99)
[2018-01-04 07:16] LABS: Basophils # (A) 0.1 k/uL (0-0.2); Basophils % (A) 1 %; Eosinophils # (A) 0.4 k/uL (0-0.7); Eosinophils % (A) 4 %; HCT 30.3 % (39.0-53.0); HGB 10.3 gm/dL (13.0-17.5); Lymphocytes # (A) 2.5 k/uL (1.0-4.8); Lymphocytes % (A) 26 %; MCH 29.7 pg (25.0-35.0); MCHC 34.1 g/dL (31.0-37.0); MCV 87.1 fL (80.0-100.0); Mean Platelet Volume 7.4; Monocytes # (A) 0.5 k/uL (0-1.0); Monocytes % (A) 5 %; Neutrophils # (A) 6.3 k/uL (1.3-7.7); Neutrophils % (A) 64 %; Platelet Count 304 k/uL (150-450); RBC 3.47 m/uL (4.30-5.90); WBC 9.9 k/uL (3.8-10.6)
[2018-01-04] MEDS: FLUTICASONE 110 MCG INHALER INHALATION SCH ×2 (07:23→19:39)
[2018-01-04 07:48] LABS: Calcium 9.1 mg/dL (8.4-10.2); Potassium 5.1 mmol/L (3.5-5.1)
[2018-01-04] MEDS: INSULIN ASPART 100 UNIT/ML 1 ML 10 ML VIAL SQ SCH ×4 (08:49→21:06)
[2018-01-04] MEDS: PREGABALIN 100 MG CAP PO SCH ×2 (09:33→21:07)
[2018-01-04] MEDS: FUROSEMIDE 20 MG TAB PO SCH (09:33)
[2018-01-04] MEDS: HEPARIN SODIUM,PORCINE 5,000 UNIT/ML 1 ML VIAL SQ SCH ×2 (09:33→21:06)
[2018-01-04] MEDS: ATORVASTATIN 40 MG TAB PO SCH (09:33)
[2018-01-04] MEDS: VANCOMYCIN 2,250 MG in SODIUM CHLORIDE 0.9% 500 ML 500 ML IVPB SCH (09:33)
[2018-01-04 11:34] LABS: Glucose,Whole Blood 235 mg/dL (75-99)
[2018-01-04] MEDS: NON-FORMULARY DRUG (Liraglutide [Victoza 3-Pak] 1.8 MG) SQ SCH (11:54)
[2018-01-04] MEDS: MULTIVITAMINS, THERA 1 EACH TAB PO SCH (12:00)
--- NOTE | 2018-01-04 13:06 | P.PN ---
Progress Note - Text Progress Note Date: 01/04/18 Patient is a very pleasant 52-year-old male who is seen and examined the bedside for further evaluation of his left foot. He is status post irrigation and debridement with removal of foreign body of the left foot with wound VAC placement formed yesterday, 01/03/2018, by Dr. Ramos. Patient's pain has continued to be controlled at the left lower extremity. He is been non- ambulatory on the left lower extremity. He has been seen and examined by Dr. Rodriguez in infectious disease who will manage antibiotics and wound care. Cultures were taken and results are pending. Patient has no new complaints at the bedside. He is eating and voiding without difficulty. He has a history of left medial column fusion (fusion of the talonavicular, naviculocuneiform, and first tarsometatarsal joints), left biplanar, closing wedge midfoot osteotomy, left percutaneous tendoachilles lengthening, performed on 10/10/[address] Ramos. Physical Exam: Patient is awake, alert, and oriented 3 Vital signs stable Good chest excursion with deep inspiration and expiration Abdomen soft nontender No signs or symptoms of DVT; no calf pain Some reduced sensation over the toes of the left foot due to neuropathy No significant pain with palpation over the left knee Evidence of wound VAC placement on the plantar side of the left foot that appears well attached No evidence of open wound or active drainage outside the wound VAC Evidence of well-healed incisions over the medial column of the left foot and dorsal aspect of the first and second TMT joint Assessment: Status post irrigation and debridement with removal of foreign body of the left foot with wound VAC placement Left foot Charcot arthritis Left foot abscess and foreign body Poorly controlled type 2 diabetes Diabetic neuropathy History of left medial column fusion (fusion of the talonavicular, naviculocuneiform, and first tarsometatarsal joints), left biplanar, closing wedge midfoot osteotomy, left percutaneous tendoachilles lengthening, performed on 10/10/16 Plan: 1. Patient has been discussed in detail with Dr. Ramos. He will continue to be nonweightbearing on the left lower extremity at the wound site until his wound has healed appropriately. We'll continue with conservative care following irrigation and debridement with removal of foreign body of the left foot with wound VAC placement. At this time, we're not currently planning for further surgical intervention. Patient will continue to be followed by Dr. Rodriguez in infectious disease who will continue with appropriate antibiotic treatment and wound VAC treatment. 2. Patient will continue to be seen and examined by Dr. Miller in medicine 3. We'll continue to follow patient closely 4. Patient has been discussed in detail with Dr. Ramos who agrees with this plan
[2018-01-04 16:56] LABS: Glucose,Whole Blood 236 mg/dL (75-99)
[2018-01-04 19:30] VITALS: RESP 16
--- NOTE | 2018-01-04 21:06 | PN ---
PROGRESS NOTE DATE OF SERVICE: 01/04/2018 This 52-year-old gentleman with a diabetic foot on the left side, underwent irrigation and debridement of foreign body of the left foot with wound VAC placement by Dr. Ramos. The cultures are pending at this time. The patient on broad IV antibiotics. No chest pain. No palpitations. No fever. PHYSICAL EXAM: Alert and oriented x3. Pulse 87, blood pressure 159/95, respiration 17, temperature 97.4, pulse ox 100 percent room air. HEENT: Conjunctivae normal. Oral mucosa moist. Neck is no jugular venous distention. No carotid bruit. No lymph node enlargement. CARDIOVASCULAR: S1, S2. RESPIRATORY: Breath sounds diminished in the bases. No rhonchi, no crackles. ABDOMEN: Soft, nontender. LEGS: Status post left foot surgery and wound VAC placement. LABS: WBC 9.9, hemoglobin 10.3, creatinine is 1.3. ASSESSMENT: 1. Left diabetic foot abscess and ulcer, status irrigation debridement, removal of foreign body. 2. Charcot foot on the left side. 3. Diabetes mellitus type 2. 4. Hyperkalemia. 5. Acute on chronic kidney disease. 6. Chronic kidney stage 3 baseline. 7. Diabetic peripheral neuropathy. 8. History of asthma. 9. History of hypertension. 10.History of hyperlipidemia. 11.History of degenerative joint disease. 12.Remote history of nicotine dependence. 13.History of THC. 14.Obesity with body mass index of 39.6. RECOMMENDATIONS AND DISCUSSION: I recommend to continue current management and symptomatic treatment. Continue with broad-spectrum IV antibiotics. Otherwise follow cultures. Closely monitor blood sugars closely. Closely monitor with Infectious Disease as well as Orthopedic Surgery. Further recommendations to follow. MMODL / IJN: [id number] /
[2018-01-04] MEDS: INSULIN DETEMIR 100 UNIT/ML 10 ML VIAL SQ SCH (21:07)
[2018-01-04 21:19] LABS: Glucose,Whole Blood 226 mg/dL (75-99)
[2018-01-05] MEDS: VANCOMYCIN 2,250 MG in SODIUM CHLORIDE 0.9% 500 ML 500 ML IVPB SCH ×2 (00:13→15:48)
--- NOTE | 2018-01-05 00:56 | P.PN ---
Subjective Progress Note Date: 01/04/18 52-year-old male with a long-standing history of diabetes mellitus type 2 relates that a copy tabled his home broke that had a glass top. He inadvertently stepped on a piece of glass and develop an abscess on the plantar surface of his foot which was Complicated because of his history of a Charcot foot. He was in the outpatient setting was brought to the hospital for the surgical incision and drainage to the abscess site. The patient was taken to the operating room the piece of glass was found and removed. The wound was explored there is no evidence of any bony involvement. Related that the fascia was intact. Wound VAC has been applied and the infectious diseases consultation request regarding antibiotic therapy and wound care after surgery. The patient denying fever chill rigors or sweats. Is working with his glucose control. 01/04/2018 patient is feeling better. Pain is under good control in that he does have significant neuropathy. Denies fevers or chills. No other new symptoms. Objective - Vital Signs Vital signs: Vital Signs Temp 97.5 F L 01/04/18 23:18 Pulse 76 01/04/18 23:18 Resp 16 01/04/18 23:18 BP 146/91 01/04/18 23:18 Pulse Ox 97 01/04/18 23:18 Intake & Output 01/04/18 01/04/18 01/05/18 06:59 18:59 06:59 Intake Total 3740 Output Total 825 Balance -825 3740 Intake: IV 800 Sodium Chloride 0.9% 1, 800 000 ml @ 100 mls/hr IV . Q10H [facility] Rx#:[id number] Oral 2940 Output: Urine 825 - Exam Pleasant 52-year-old male in no acute distress HEENT: Anicteric conjunctiva are pink and moist nasal mucosa grossly intact without significant lesions, there is no thrush. Neck: The neck is supple without significant lymphadenopathy or thyromegaly. Lungs: Good bilateral air entry without significant crackles or wheezing. There is no significant bronchial sounds. There is no egophony or dullness. Heart: Regular rate and rhythm with an audible S1-S2, no S3 no S4. There is no significant murmur click or rub, PMI was nondisplaced. Abdomen: Positive bowel sounds soft and nontender without palpable masses or organomegaly. There was no guarding or rebound. Extremities: The upper extremities have excellent pulses they are symmetric, no significant petechiae or telangiectasia. No splinter hemorrhages were noted. Right lower extremity without acute new changes. No fluctuation is evidence of the recent surgical intervention. Wound VAC is in place. Evidence of any purulent drainage. There is minimal swelling to the foot, evidence of Charcot changes, no evidence of any significant ascending erythema at this time. Neuro: Awake alert oriented to person place and time. There are no acute new gross focal sensory motor deficits. - Labs CBC & Chem 7: 01/04/18 06:56 01/04/18 06:56 Labs: Abnormal Lab Results - Last 24 Hours (Table) 01/04/18 01/04/18 01/04/18 Range/Units 06:53 06:56 06:56 RBC 3.47 L (4.30-5.90) m/uL Hgb 10.3 L (13.0-17.5) gm/dL Hct 30.3 L (39.0-53.0) % BUN 21 H (9-20) mg/dL Creatinine 1.30 H (0.66-1.25) mg/dL Glucose 206 H (74-99) mg/dL POC Glucose (mg/dL) 206 H (75-99) mg/dL 01/04/18 01/04/18 01/04/18 Range/Units 11:32 16:53 20:57 RBC (4.30-5.90) m/uL Hgb (13.0-17.5) gm/dL Hct (39.0-53.0) % BUN (9-20) mg/dL Creatinine (0.66-1.25) mg/dL Glucose (74-99) mg/dL POC Glucose (mg/dL) 235 H 236 H 226 H (75-99) mg/dL Microbiology - Last 24 Hours (Table) 01/02/18 17:15 Blood Culture - Preliminary Blood No Growth after 48 hours 01/02/18 16:42 Blood Culture - Preliminary Blood No Growth after 48 hours Laboratory Results WBC 9.9 k/uL (3.8-10.6) 01/04/18 06:56 RBC 3.47 m/uL (4.30-5.90) L 01/04/18 06:56 Hgb 10.3 gm/dL (13.0-17.5) L 01/04/18 06:56 Hct 30.3 % (39.0-53.0) L 01/04/18 06:56 MCV 87.1 fL (80.0-100.0) 01/04/18 06:56 MCH 29.7 pg (25.0-35.0) 01/04/18 06:56 MCHC 34.1 g/dL (31.0-37.0) 01/04/18 06:56 RDW 13.0 % (11.5-15.5) 01/04/18 06:56 Plt Count 304 k/uL (150-450) 01/04/18 06:56 Neutrophils % 64 % 01/04/18 06:56 Lymphocytes % 26 % 01/04/18 06:56 Monocytes % 5 % 01/04/18 06:56 Eosinophils % 4 % 01/04/18 06:56 Basophils % 1 % 01/04/18 06:56 Neutrophils # 6.3 k/uL (1.3-7.7) 01/04/18 06:56 Lymphocytes # 2.5 k/uL (1.0-4.8) 01/04/18 06:56 Monocytes # 0.5 k/uL (0-1.0) 01/04/18 06:56 Eosinophils # 0.4 k/uL (0-0.7) 01/04/18 06:56 Basophils # 0.1 k/uL (0-0.2) 01/04/18 06:56 ESR 93 mm/hr (0-15) H 01/02/18 16:42 Sodium 140 mmol/L (137-145) 01/04/18 06:56 Potassium 5.1 mmol/L (3.5-5.1) 01/04/18 06:56 Chloride 107 mmol/L (98-107) 01/04/18 06:56 Carbon Dioxide 25 mmol/L (22-30) 01/04/18 06:56 Anion Gap 8 mmol/L 01/04/18 06:56 BUN 21 mg/dL (9-20) H 01/04/18 06:56 Creatinine 1.30 mg/dL (0.66-1.25) H 01/04/18 06:56 Est GFR (CKD-EPI)AfAm 73 (>60 ml/min/1.73 sqM) 01/04/18 06:56 Est GFR (CKD-EPI)NonAf 63 (>60 ml/min/1.73 sqM) 01/04/18 06:56 Glucose 206 mg/dL (74-99) H 01/04/18 06:56 POC Glucose (mg/dL) 226 mg/dL (75-99) H 01/04/18 20:57 POC Glu Bail Agent ID Mare Irvin 01/04/18 20:57 Calcium 9.1 mg/dL (8.4-10.2) 01/04/18 06:56 Total Bilirubin 0.2 mg/dL (0.2-1.3) 01/03/18 06:35 AST 20 U/L (17-59) 01/03/18 06:35 ALT 45 U/L (21-72) 01/03/18 06:35 Alkaline Phosphatase 55 U/L (38-126) 01/03/18 06:35 C-Reactive Protein 34.6 mg/L (<10.0) H 01/02/18 16:42 Total Protein 6.4 g/dL (6.3-8.2) 01/03/18 06:35 Albumin 3.2 g/dL (3.5-5.0) L 01/03/18 06:35 Microbiology 01/02/18 17:15 Blood Blood Culture - Preliminary No Growth after 48 hours 01/02/18 16:42 Blood Blood Culture - Preliminary No Growth after 48 hours Assessment and Plan (1) Diabetic foot infection Narrative/Plan: 52-year-old male presents to Hospital status post injury to his left foot after stepping on a piece of glass from a broken glass tabletop. The patient developed an infection at that site and was admitted in his had the surgical incision and drainage to the site. Surgical relates that there is no evidence of any deep penetration no bony exposure that occurred. Area was cleansed debrided and wound VAC has been applied. Patient is of a history of prior staphylococcal infection and all cultures are in progress therapy with vancomycin shall utilize. Await surgical cultures. Patient will be offloading to the site until it is better healed. He does have rollabout that he can utilize. He has utilized this in the past after the Charcot foot reconstruction. If there is no only involvement there is going to be the possibility of oral antimicrobial therapy at the time of discharge with ongoing local wound care that can be monitored at the wound healing Center. Multivitamin with zinc as requested. Enhance glucose control to help his healing. 01/04/2018 the patient is showing further improvement. Wound VAC should be evaluated in the morning and hopefully change at that time. It is possible that depending on the findings that local wound care can be applied. Given that there is no deep infection in that there is no bony involvement the patient hopefully can be transitioned to an oral antibiotic at the time of his discharge with offloading to allow the further improvement of this traumatic injury with secondary infection. Patient clinically is feeling quite well. Current Visit: Yes Status: Acute Code(s): E11.69 - TYPE 2 DIABETES MELLITUS WITH OTHER SPECIFIED COMPLICATION; L08.9 - LOCAL INFECTION OF THE SKIN AND SUBCUTANEOUS TISSUE, UNSP SNOMED Code(s): 873588590
[2018-01-05 06:51] LABS: Glucose,Whole Blood 179 mg/dL (75-99)
[2018-01-05] MEDS: HYDROcodone/APAP 10-325MG 1 EACH TAB PO PRN ×3 (07:04→19:29)
[2018-01-05 07:13] LABS: Anion Gap 9 mmol/L; Blood Urea Nitrogen 18 mg/dL (9-20); Calcium 9.1 mg/dL (8.4-10.2); Carbon Dioxide 24 mmol/L (22-30); Chloride 107 mmol/L (98-107); Glucose 198 mg/dL (74-99); Potassium 4.6 mmol/L (3.5-5.1); Sodium 140 mmol/L (137-145)
[2018-01-05] MEDS: SODIUM CHLORIDE 0.9% 1,000 ML IV SCH ×2 (07:33→10:54)
[2018-01-05] MEDS: FLUTICASONE 110 MCG INHALER INHALATION SCH ×2 (07:42→19:18)
[2018-01-05] MEDS: INSULIN ASPART 100 UNIT/ML 1 ML 10 ML VIAL SQ SCH ×4 (08:46→20:49)
[2018-01-05] MEDS: FUROSEMIDE 20 MG TAB PO SCH (08:46)
[2018-01-05] MEDS: ATORVASTATIN 40 MG TAB PO SCH (08:46)
[2018-01-05] MEDS: HEPARIN SODIUM,PORCINE 5,000 UNIT/ML 1 ML VIAL SQ SCH ×2 (08:46→20:48)
[2018-01-05] MEDS: PREGABALIN 100 MG CAP PO SCH ×2 (08:46→20:48)
--- NOTE | 2018-01-05 11:13 | P.PN ---
Progress Note - Text Progress Note Date: 01/05/18 Patient is a very pleasant 52-year-old male who is seen and examined the bedside for further evaluation of his left foot. He is status post irrigation and debridement with removal of foreign body of the left foot with wound VAC placement formed 01/03/2018, by Dr. Ramos. He has not had any significant change since being seen and examined yesterday. Patient's pain has continued to be controlled at the left lower extremity. He is been non- ambulatory on the left lower extremity. He has been seen and examined by Dr. Rodriguez in infectious disease who will manage antibiotics and wound care. Patient states Dr. Rodriguez is currently planning to change the wound VAC today, 01/05/2018. Cultures were taken and results are pending. Patient has no new complaints at the bedside. He is eating and voiding without difficulty. He has a history of left medial column fusion (fusion of the talonavicular, naviculocuneiform, and first tarsometatarsal joints), left biplanar, closing wedge midfoot osteotomy, left percutaneous tendoachilles lengthening, performed on 10/10/[address] Ramos. Physical Exam: Postoperative day #2 Patient is awake, alert, and oriented 3 Vital signs stable Good chest excursion with deep inspiration and expiration Abdomen soft nontender No signs or symptoms of DVT; no calf pain Some reduced sensation over the toes of the left foot due to neuropathy No significant pain with palpation over the left knee Evidence of wound VAC placement on the plantar side of the left foot that appears well attached No evidence of open wound or active drainage outside the wound VAC Evidence of well-healed incisions over the medial column of the left foot and dorsal aspect of the first and second TMT joint Assessment: Status post irrigation and debridement with removal of foreign body of the left foot with wound VAC placement Left foot Charcot arthritis Left foot abscess and foreign body Poorly controlled type 2 diabetes Diabetic neuropathy History of left medial column fusion (fusion of the talonavicular, naviculocuneiform, and first tarsometatarsal joints), left biplanar, closing wedge midfoot osteotomy, left percutaneous tendoachilles lengthening, performed on 10/10/16 Plan: 1. Patient will continue to be nonweightbearing on the left lower extremity at the wound site until his wound has healed appropriately. We'll continue with conservative care following irrigation and debridement with removal of foreign body of the left foot with wound VAC placement. At this time, we're not currently planning for further surgical intervention. Patient will continue to be followed by Dr. Rodriguez in infectious disease who will continue with appropriate antibiotic treatment and wound VAC treatment. Patient states Dr. Rodriguez is planning for changing of the wound VAC today 2. Patient will continue to be seen and examined by Dr. Miller in medicine 3. We'll continue to follow patient closely 4. Patient has been discussed in detail with Dr. Ramos who agrees with this plan
[2018-01-05 12:04] LABS: Glucose,Whole Blood 269 mg/dL (75-99)
[2018-01-05] MEDS: NON-FORMULARY DRUG (Liraglutide [Victoza 3-Pak] 1.8 MG) SQ SCH (12:59)
[2018-01-05] MEDS: MULTIVITAMINS, THERA 1 EACH TAB PO SCH (13:23)
[2018-01-05 16:57] LABS: Glucose,Whole Blood 269 mg/dL (75-99)
--- NOTE | 2018-01-05 17:49 | PN ---
PROGRESS NOTE DATE OF SERVICE: 01/05/2018 This 52-year-old gentleman who was admitted after left diabetic foot abscess and ulcer had removal of the foreign body. Wound VAC is applied. No chest pain. No palpitations. No fever. The cultures are negative so far. PHYSICAL EXAM: Alert and oriented x3. Pulse 80, blood pressure 150/86, respirations 16, temperature 98.2, pulse ox 94% on room air. HEENT: Conjunctivae normal. Oral mucosa moist. Neck is no jugular venous distention. No carotid bruit. No lymph node enlargement. CARDIOVASCULAR: S1, S2 muffled. No S3, no S4. RESPIRATORY: Breath sounds diminished in the bases. No rhonchi, no crackles. ABDOMEN: Soft. LEGS: Status post left foot incision and drainage. Wound VAC application. NERVOUS SYSTEM: No focal deficits. Sensory abnormalities noted. LABS: At this time shows: WBC 9.2, hemoglobin 10.3, and creatinine is normal is 1.06 and glucose is 205. ASSESSMENT: 1. Left diabetic foot ulcer and abscess, status post irrigation and debridement and removal of foreign body. 2. Charcot foot on the left side. 3. Diabetes mellitus type 2. 4. Hyperkalemia. 5. Acute on chronic kidney disease. 6. Chronic kidney disease stage III. 7. Diabetic peripheral neuropathy. 8. History of asthma. 9. Hypertension. 10.Hyperlipidemia. 11.History of degenerative joint disease. 12.History of nicotine dependence. 13.History of THC. 14.Obesity with body mass of 39.6. RECOMMENDATIONS AND DISCUSSION: I recommend to continue current management, continue symptomatic treatment. Otherwise at this time, we will monitor the patient closely. Monitor potassium closely. Stop the IV fluids. Continue the antibiotics. Continue the wound VAC. The cultures are negative so far. Guarded prognosis. Further recommendations to follow. MMODL / IJN: [id number] /
[2018-01-05 20:36] LABS: Glucose,Whole Blood 329 mg/dL (75-99)
[2018-01-05] MEDS: INSULIN DETEMIR 100 UNIT/ML 10 ML VIAL SQ SCH (20:48)
[2018-01-06] MEDS: HYDROcodone/APAP 10-325MG 1 EACH TAB PO PRN ×3 (04:16→16:24)
[2018-01-06 07:16] LABS: Glucose,Whole Blood 246 mg/dL (75-99)
[2018-01-06] MEDS: FLUTICASONE 110 MCG INHALER INHALATION SCH (08:48)
[2018-01-06 09:14] LABS: Anion Gap 10 mmol/L; Blood Urea Nitrogen 16 mg/dL (9-20); Carbon Dioxide 25 mmol/L (22-30); Chloride 104 mmol/L (98-107); Glucose 242 mg/dL (74-99); Potassium 4.6 mmol/L (3.5-5.1); Sodium 139 mmol/L (137-145)
[2018-01-06] MEDS: HEPARIN SODIUM,PORCINE 5,000 UNIT/ML 1 ML VIAL SQ SCH (10:13)
[2018-01-06] MEDS: PREGABALIN 100 MG CAP PO SCH (10:14)
[2018-01-06] MEDS: ATORVASTATIN 40 MG TAB PO SCH (10:14)
[2018-01-06] MEDS: FUROSEMIDE 20 MG TAB PO SCH (10:15)
[2018-01-06] MEDS: VANCOMYCIN 2,250 MG in SODIUM CHLORIDE 0.9% 500 ML 500 ML IVPB SCH (10:16)
[2018-01-06] MEDS: INSULIN ASPART 100 UNIT/ML 1 ML 10 ML VIAL SQ SCH ×5 (10:17→17:56)
[2018-01-06 12:30] LABS: Glucose,Whole Blood 255 mg/dL (75-99)
[2018-01-06 13:02] LABS: Hemoglobin A1C 9.1 % (4.0-6.0)
[2018-01-06] MEDS: NON-FORMULARY DRUG (Liraglutide [Victoza 3-Pak] 1.8 MG) SQ SCH (13:12)
[2018-01-06] MEDS: MULTIVITAMINS, THERA 1 EACH TAB PO SCH (13:18)
[2018-01-06 15:12] VITALS: BP 147/87; PULSE 100; TEMP 97.3
--- NOTE | 2018-01-06 15:37 | P.DS ---
Providers Date of admission: 01/02/18 15:26 Expected date of discharge: 01/06/18 Attending physician: Isidro Ramos Consults: 01/02/18 13:54 Consult Physician Routine Consulting Provider: Ten Rodriguez Consult Reason/Comments: antibiotic and wound vac management Do you want consulting provider notified?: Yes Placement Type Exists?: Yes 01/02/18 13:56 Consult Physician Routine Consulting Provider: Jose Daniel Miller Consult Reason/Comments: medical management Do you want consulting provider notified?: Yes Primary care physician: Stated None - Discharge Diagnosis(es) (1) Diabetic foot infection Patient was admitted to the OR on 01/03/2018 to undergo an I and D of diabetic charcot left foot wound. He had failed conservative measures as an outpatient and desired to proceed with elective surgery after given informed consent. He underwent the above procedure which he tolerated well without complication. Postoperative hospital course has remained without complication. On day of discharge hhe is afebrile, vital signs stable, labs within acceptable ranges, tolerating by mouth meds and diet, voiding without difficulty, positive flatus, denies abdominal pain or calf pain, pain is controlled on oral pain medication and has no new complaints. Wound is benign, neurovascular status is intact, calf is soft and nontender, abdomen soft and nontender. Review of systems is negative for numbness, tingling, fever, chills, chest pain, shortness breath, nausea, vomiting, dizziness, headaches, slurred speech or other. Current Visit: Yes Status: Acute Priority: Medium (2) Cellulitis of left foot Current Visit: No Status: Acute Priority: Medium (3) Charcot foot due to diabetes mellitus Current Visit: No Status: Acute Priority: Medium Procedures: I and D left foot Patient Condition at Discharge: Fair Plan - Discharge Summary Discharge Rx Participant: Yes New Discharge Prescriptions: New Cephalexin [Keflex] 500 mg PO Q8HR #63 cap HYDROcodone/APAP 10-325MG [[place] 10-325] 1 tab PO Q4HR PRN #42 tab PRN Reason: Pain No Action Pregabalin [Lyrica] 200 mg PO BID Liraglutide [Victoza 3-Master] 1.8 mg SQ W/LUNCH Ranitidine HCl [Zantac] 75 mg PO BID PRN PRN Reason: Heartburn Glimepiride [Amaryl] 4 mg PO BID Albuterol Inhaler [Ventolin Hfa Inhaler] 1 - 2 puff INHALATION RT-Q6H PRN PRN Reason: Shortness Of Breath Or Wheezing Albuterol Nebulized (Conc) [Ventolin Nebulized (Conc)] 1 mg INHALATION RT- QID PRN PRN Reason: Shortness Of Breath Or Wheezing Budesonide [Pulmicort Flexhaler] 1 puff INHALATION RT-BID PRN PRN Reason: Shortness Of Breath Atorvastatin [Lipitor] 40 mg PO DAILY metFORMIN HCL [Glucophage] 1,000 mg PO BID #0 HYDROcodone/APAP 10-325MG [[place] 10-325] 1 - 2 tab PO Q6H PRN PRN Reason: Pain Control amLODIPine [Norvasc] 5 mg PO DAILY Benazepril HCl [Lotensin] 20 mg PO DAILY Calcium Carbonate [Tums] 500 mg PO TID PRN PRN Reason: Heartburn Furosemide [Lasix] 20 mg PO DAILY Insulin Glargine,Hum.rec.anlog [Basaglarielle Densonikmarina U-100] 16 unit SQ HS Potassium Chloride ER [K-Dur 10] 10 meq PO DAILY Cephalexin [Keflex] 500 mg PO Q6HR #28 cap Discharge Medication List Albuterol Inhaler [Ventolin Hfa Inhaler] 1 - 2 puff INHALATION RT-Q6H PRN [History] Albuterol Nebulized (Conc) [Ventolin Nebulized (Conc)] 1 mg INHALATION RT-QID PRN 06/07/16 [History] Budesonide [Pulmicort Flexhaler] 1 puff INHALATION RT-BID PRN 06/07/16 [History] Glimepiride [Amaryl] 4 mg PO BID 06/07/16 [History] Liraglutide [Victoza 3-Master] 1.8 mg SQ W/LUNCH 06/07/16 [History] Pregabalin [Lyrica] 200 mg PO BID 06/07/16 [History] Ranitidine HCl [Zantac] 75 mg PO BID PRN 06/07/16 [History] Atorvastatin [Lipitor] 40 mg PO DAILY 10/08/16 [History] metFORMIN HCL [Glucophage] 1,000 mg PO BID #0 10/12/16 [Rx] HYDROcodone/APAP 10-325MG [[place] 10-325] 1 - 2 tab PO Q6H PRN 10/30/16 [History] Benazepril HCl [Lotensin] 20 mg PO DAILY 06/11/17 [History] Calcium Carbonate [Tums] 500 mg PO TID PRN 06/11/17 [History] Furosemide [Lasix] 20 mg PO DAILY 06/11/17 [History] Insulin Glargine,Hum.rec.anlog [Basaglar Kwikpen U-100] 16 unit SQ HS 06/11/17 [ History] Potassium Chloride ER [K-Dur 10] 10 meq PO DAILY 06/11/17 [History] amLODIPine [Norvasc] 5 mg PO DAILY 06/11/17 [History] Cephalexin [Keflex] 500 mg PO Q6HR #28 cap 06/14/17 [Rx] Cephalexin [Keflex] 500 mg PO Q8HR #63 cap 01/06/18 [Rx] HYDROcodone/APAP 10-325MG [[place] 10-325] 1 tab PO Q4HR PRN #42 tab 01/06/18 [Rx] Follow up Appointment(s)/Referral(s): [facility], [NON-STAFF] - Isidro Ramos MD [Medical Doctor] - 01/16/18 2:45 pm ( ) Ambulatory/Diagnostic Orders: Ambulatory Miscellaneous Order [MISC.AMB] Location: None Selected Activity/Diet/Wound Care/Special Instructions: 1. Nonweightbearing left lower extremity at the wound site on the plantar side of the foot until wound has healed appropriately Discharge Disposition: HOME WITH HOME HEALTH SERVICES
--- NOTE | 2018-01-06 15:53 | CDI ---
Last Revision, March 2017 Documentation Clarification Form Date: 01/06/18 From: Janey Zhang RN Admit Date: 01/02/2018 3:26:00 PM Patient Name: Osmany Dutta Visit Number: [id number] ATTENTION: The Clinical Documentation Specialists (CDI) and [facility] Coding Staff appreciate your assistance in clarifying documentation. Please respond to the clarification below the line at the bottom and electronically sign. The CDI & [facility] Coding staff will review the response and follow-up if needed. Please note: Queries are made part of the Legal Health Record. If you have any questions, please contact the author of this message via ITS. Jose Daniel Serrano MD, Asthma is documented in the chart in the H&P 01/02, Consult 01/03, PN 01/04 - 01/05. Pt admitted with foot abscess. Patient history/risk factors: asthma, DM, hyperlipidemia, HTN, neurologic disorder, x smoker Clinical Indicators: Vital Signs: T 97.3, P 95, R 20, 109/67, 96% Treatment: Medication: Ventolin, Flovent In your professional opinion, can you please further specify the following, if known? Status asthmaticus COPD (specify with or without exacerbation) Chronic obstructive bronchitis Other, please specify Unable to determine Severity: Mild intermittent Mild persistent Moderate persistent Severe persistent Other, please specify Unable to determine Form or Type: Extrinsic allergic Idiosyncratic Intrinsic nonallergic Late-onset Mixed Other, please specify Unable to determine Mild intermittent Please continue to document in your progress notes and discharge summary in order to capture severity of illness and risk of mortality. Include clinical findings that support your diagnosis. MTDD
--- NOTE | 2018-01-06 16:11 | PN ---
PROGRESS NOTE DATE OF SERVICE: 01/06/2018 This 53-year-old gentleman who was admitted with a left diabetic foot ulcer had wound V.A.C. placement. The patient is improving significantly. No chest pain. No palpitations. No fever. On exam, alert and oriented x3. Pulse is 79, blood pressure 154/91, respiration 16, temperature 98.4, pulse ox 91% on room air. HEENT: Conjunctivae normal. Oral mucosa moist. NECK: No jugular venous distention. No carotid bruit. No lymph node enlargement. CARDIOVASCULAR SYSTEM: S1, S2 muffled. RESPIRATORY SYSTEM: Breath sounds diminished at the bases. No rhonchi. No crackles. ABDOMEN: Soft. LEGS: Status post left foot wound V.A.C. application. Labs are noted. Sodium 139, potassium 4.6. Accu-Cheks are noted. ASSESSMENT: 1. Left foot diabetic ulcer and abscess, status post irrigation and debridement and removal of the foreign body. 2. Charcot foot on the left side. 3. Diabetes mellitus, type 2, uncontrolled, with hyperglycemia. 4. Hyperkalemia. 5. Acute on chronic kidney disease. 6. Chronic kidney disease, stage III, baseline. 7. Diabetic peripheral neuropathy. 8. History of asthma. 9. Hypertension. 10.Hyperlipidemia. 11.History of degenerative joint disease. 12.History of nicotine dependence. 13.History of tetrahydrocannabinol. 14.Obesity with body mass index of 39.6. RECOMMENDATIONS AND DISCUSSION: I recommend to continue current medication, continue with the monitoring, symptomatic treatment. Will monitor the patient closely. Continue the antibiotics. Increase the dose of insulins. Monitor blood sugars closely. Guarded prognosis because of multiple complex medical issues. Further recommendations to follow. MMODL / IJN: [id number] /
[2018-01-06] MEDS ORDERED: metFORMIN 500 MG TAB PO SCH (17:30)
[2018-01-06] MEDS ORDERED: GLIMEPIRIDE 4 MG TAB PO SCH (17:30)
[2018-01-06 17:43] LABS: Glucose,Whole Blood 365 mg/dL (75-99)
[2018-01-06] MEDS ORDERED: INSULIN DETEMIR 100 UNIT/ML 10 ML VIAL SQ SCH (21:00)
--- NOTE | 2018-01-06 23:05 | P.PN ---
Subjective Progress Note Date: 01/06/18 52-year-old male with a long-standing history of diabetes mellitus type 2 relates that a copy tabled his home broke that had a glass top. He inadvertently stepped on a piece of glass and develop an abscess on the plantar surface of his foot which was Complicated because of his history of a Charcot foot. He was in the outpatient setting was brought to the hospital for the surgical incision and drainage to the abscess site. The patient was taken to the operating room the piece of glass was found and removed. The wound was explored there is no evidence of any bony involvement. Related that the fascia was intact. Wound VAC has been applied and the infectious diseases consultation request regarding antibiotic therapy and wound care after surgery. The patient denying fever chill rigors or sweats. Is working with his glucose control. 01/04/2018 patient is feeling better. Pain is under good control in that he does have significant neuropathy. Denies fevers or chills. No other new symptoms. 01/06/2018 reveals a patient to have further improvement. There've been no new significant findings and is not having fevers or chills. No pain is occurring. There is no ascending infection. Objective - Vital Signs Vital signs: Vital Signs Temp 97.3 F L 01/06/18 15:00 Pulse 100 01/06/18 15:00 Resp 16 01/06/18 15:00 BP 147/87 01/06/18 15:00 Pulse Ox 96 01/06/18 15:00 Intake & Output 01/06/18 01/06/18 01/07/18 06:59 18:59 06:59 Intake Total 1999 788 Output Total 375 Balance 1999 Intake: IV 1000 Sodium Chloride 0.9% 1, 1000 000 ml @ 100 mls/hr IV . Q10H S[facility]ANNA[facility] Rx#:[id number] Intake, IV Titration 500 Amount Vancomycin 2,250 mg In 500 Sodium Chloride 0.9% 500 ml @ 167 mls/hr IVPB Q16H [facility]ANNA[facility] Rx#:[id number] Oral 500 788 Output: Urine 375 Other: # Voids 1 1 - Exam Pleasant 52-year-old male in no acute distress HEENT: Anicteric conjunctiva are pink and moist nasal mucosa grossly intact without significant lesions, there is no thrush. Neck: The neck is supple without significant lymphadenopathy or thyromegaly. Lungs: Good bilateral air entry without significant crackles or wheezing. There is no significant bronchial sounds. There is no egophony or dullness. Heart: Regular rate and rhythm with an audible S1-S2, no S3 no S4. There is no significant murmur click or rub, PMI was nondisplaced. Abdomen: Positive bowel sounds soft and nontender without palpable masses or organomegaly. There was no guarding or rebound. Extremities: The upper extremities have excellent pulses they are symmetric, no significant petechiae or telangiectasia. No splinter hemorrhages were noted. Right lower extremity without acute new changes. No fluctuation is evidence of the recent surgical intervention. The wound VAC has been removed. There is still some necrotic material at the base. This was sharply debrided with scissors and forceps. The ulceration is then packed with the silver alginate dressing which can be changed Saturday. There is not a large amount of drainage in the swelling has improved. There is minimal swelling to the foot, evidence of Charcot changes, no evidence of any significant ascending erythema at this time. Neuro: Awake alert oriented to person place and time. There are no acute new gross focal sensory motor deficits. - Labs CBC & Chem 7: 01/04/18 06:56 01/06/18 07:28 Labs: Abnormal Lab Results - Last 24 Hours (Table) 01/04/18 01/06/18 01/06/18 Range/Units 06:56 07:15 07:28 Glucose 242 H (74-99) mg/dL POC Glucose (mg/dL) 246 H (75-99) mg/dL Hemoglobin A1c 9.1 H (4.0-6.0) % 01/06/18 01/06/18 Range/Units 12:28 17:42 Glucose (74-99) mg/dL POC Glucose (mg/dL) 255 H 365 H (75-99) mg/dL Hemoglobin A1c (4.0-6.0) % Microbiology - Last 24 Hours (Table) 01/02/18 17:15 Blood Culture - Preliminary Blood No Growth after 96 hours 01/02/18 16:42 Blood Culture - Preliminary Blood No Growth after 96 hours Laboratory Results WBC 9.9 k/uL (3.8-10.6) 01/04/18 06:56 RBC 3.47 m/uL (4.30-5.90) L 01/04/18 06:56 Hgb 10.3 gm/dL (13.0-17.5) L 01/04/18 06:56 Hct 30.3 % (39.0-53.0) L 01/04/18 06:56 MCV 87.1 fL (80.0-100.0) 01/04/18 06:56 MCH 29.7 pg (25.0-35.0) 01/04/18 06:56 MCHC 34.1 g/dL (31.0-37.0) 01/04/18 06:56 RDW 13.0 % (11.5-15.5) 01/04/18 06:56 Plt Count 304 k/uL (150-450) 01/04/18 06:56 Neutrophils % 64 % 01/04/18 06:56 Lymphocytes % 26 % 01/04/18 06:56 Monocytes % 5 % 01/04/18 06:56 Eosinophils % 4 % 01/04/18 06:56 Basophils % 1 % 01/04/18 06:56 Neutrophils # 6.3 k/uL (1.3-7.7) 01/04/18 06:56 Lymphocytes # 2.5 k/uL (1.0-4.8) 01/04/18 06:56 Monocytes # 0.5 k/uL (0-1.0) 01/04/18 06:56 Eosinophils # 0.4 k/uL (0-0.7) 01/04/18 06:56 Basophils # 0.1 k/uL (0-0.2) 01/04/18 06:56 ESR 93 mm/hr (0-15) H 01/02/18 16:42 Sodium 139 mmol/L (137-145) 01/06/18 07:28 Potassium 4.6 mmol/L (3.5-5.1) 01/06/18 07:28 Chloride 104 mmol/L (98-107) 01/06/18 07:28 Carbon Dioxide 25 mmol/L (22-30) 01/06/18 07:28 Anion Gap 10 mmol/L 01/06/18 07:28 BUN 16 mg/dL (9-20) 01/06/18 07:28 Creatinine 1.05 mg/dL (0.66-1.25) 01/06/18 07:28 Est GFR (CKD-EPI)AfAm >90 (>60 ml/min/1.73 sqM) 01/06/18 07:28 Est GFR (CKD-EPI)NonAf 82 (>60 ml/min/1.73 sqM) 01/06/18 07:28 Glucose 242 mg/dL (74-99) H 01/06/18 07:28 POC Glucose (mg/dL) 365 mg/dL (75-99) H 01/06/18 17:42 POC Glu [employer] ID Candida Rosario 01/06/18 17:[address] Glu mg/dL 214 01/04/18 06:56 Hemoglobin A1c 9.1 % (4.0-6.0) H 01/04/18 06:56 Calcium 9.0 mg/dL (8.4-10.2) 01/06/18 07:28 Total Bilirubin 0.2 mg/dL (0.2-1.3) 01/03/18 06:35 AST 20 U/L (17-59) 01/03/18 06:35 ALT 45 U/L (21-72) 01/03/18 06:35 Alkaline Phosphatase 55 U/L (38-126) 01/03/18 06:35 C-Reactive Protein 34.6 mg/L (<10.0) H 01/02/18 16:42 Total Protein 6.4 g/dL (6.3-8.2) 01/03/18 06:35 Albumin 3.2 g/dL (3.5-5.0) L 01/03/18 06:35 Vancomycin Trough 16.0 ug/mL 01/06/18 07:28 Microbiology 01/02/18 17:15 Blood Blood Culture - Preliminary No Growth after 96 hours 01/02/18 16:42 Blood Blood Culture - Preliminary No Growth after 96 hours Assessment and Plan (1) Diabetic foot infection Narrative/Plan: 52-year-old male presents to Hospital status post injury to his left foot after stepping on a piece of glass from a broken glass tabletop. The patient developed an infection at that site and was admitted in his had the surgical incision and drainage to the site. Surgical relates that there is no evidence of any deep penetration no bony exposure that occurred. Area was cleansed debrided and wound VAC has been applied. Patient is of a history of prior staphylococcal infection and all cultures are in progress therapy with vancomycin shall utilize. Await surgical cultures. Patient will be offloading to the site until it is better healed. He does have rollabout that he can utilize. He has utilized this in the past after the Charcot foot reconstruction. If there is no only involvement there is going to be the possibility of oral antimicrobial therapy at the time of discharge with ongoing local wound care that can be monitored at the wound healing Center. Multivitamin with zinc as requested. Enhance glucose control to help his healing. 01/04/2018 the patient is showing further improvement. Wound VAC should be evaluated in the morning and hopefully change at that time. It is possible that depending on the findings that local wound care can be applied. Given that there is no deep infection in that there is no bony involvement the patient hopefully can be transitioned to an oral antibiotic at the time of his discharge with offloading to allow the further improvement of this traumatic injury with secondary infection. Patient clinically is feeling quite well. 01/06/2018 patient has further improvement. Pain is not an issue because of his neuropathy but the wound is showing improvement. It is cleansed and packed with the silver alginate dressing. Antibiotic therapy is transitioned to Augmentin and local wound care as directed per the home care visit. He is to elevate the foot at all times and utilize a rollabout. Continue with maneuvers to improve close control, continue high protein intake and follow in the outpatient setting. Discharge home today. Status: Acute Priority: Medium Code(s): E11.69 - TYPE 2 DIABETES MELLITUS WITH OTHER SPECIFIED COMPLICATION; L08.9 - LOCAL INFECTION OF THE SKIN AND SUBCUTANEOUS TISSUE, UNSP SNOMED Code(s): 119567992
--- NOTE | 2018-01-09 09:13 | CDI ---
Last Revision, March 2017 Documentation Clarification Form Date: 01/08/18 From: Sharonda Castellon Phone: If you have a question regarding this query, please contact Juliet Medrano at [phone] between 8am and 5pm. Admit Date: 01/02/2018 3:26:00 PM Patient Name: Osmany Dutta Visit Number: [id number] Discharge Date: 01/06/18 ATTENTION: The Clinical Documentation Specialists (CDI) and [facility] Coding Staff appreciate your assistance in clarifying documentation. Please respond to the clarification below the line at the bottom and electronically sign. The CDI & [facility] Coding staff will review the response and follow-up if needed. Please note: Queries are made part of the Legal Health Record. If you have any questions, please contact the author of this message via ITS. Isidro Galan MD Per your operative note, a debridement was performed on the patient's left foot. History/Risk Factors: Patient is a diabetic and recently stepped on broken glass. The patient was admitted for abscess and cellulitis of the left foot. There was also a piece of glass in the left foot. Clinical Indicators: Swelling, pain, redness and draining of the open region. Treatment: IV Vancomycin and debridement. Five elements required for accurate and compliant documentation of a debridement : 1. Technique used (e.g., excisional, excised, cutting, etc.) 2. Instrument(s) used (e.g., scalpel, curette, etc.) 3. Nature of the tissue removed (e.g., necrotic, devitalized tissues, non- viable tissue, etc.) 4. Appearance and size of the wound (e.g., down to fresh bleeding tissue, 7cm x 10cm, etc.) 5. Depth of the debridement* (e.g., skin, subcutaneous tissue, fascia, muscle , bone, etc.) In order to capture the severity of condition and code the appropriate procedure ; could you please document the following: Excisional debridement (the removal of necrotic, devitalized tissue or slough by means of cutting away of tissue) Non-excisional debridement (the removal of necrotic, devitalized tissue or slough by means of flushing, brushing, or washing. (Irrigation) Other; please specify Unable to determine (no explanation for clinical findings) Please see operative note, everything requested is dictated in note MTDD
--- NOTE | 2018-01-13 13:53 | CDI ---
Last Revision, March 2017 Documentation Clarification Form Date: 01/09/2018 9:13:00 AM From: Sharonda Castellon Phone: Admit Date: 01/02/2018 3:26:00 PM Patient Name: Osmany Dutta Visit Number: [id number] Discharge Date: ATTENTION: The Clinical Documentation Specialists (CDI) and [facility] Coding Staff appreciate your assistance in clarifying documentation. Please respond to the clarification below the line at the bottom and electronically sign. The CDI & [facility] Coding staff will review the response and follow-up if needed. Please note: Queries are made part of the Legal Health Record. If you have any questions, please contact the author of this message via ITS. Isidro Diaz MD Per your operative note, a sharp debridement was performed on the patient's left foot. Sharp cant be interpreted as excisional. History/Risk Factors: Patient is a diabetic and recently stepped on broken glass. The patient was admitted for abscess and cellulitis of the left foot. There was also a piece of glass in the left foot. Clinical Indicators: Swelling, pain, redness and draining of the open region. Treatment: IV Vancomycin and debridement. In order to capture the severity of condition and code the appropriate procedure ; could you please document the following: Excisional debridement (the removal of necrotic, devitalized tissue or slough by means of cutting away of tissue) Non-excisional debridement (the removal of necrotic, devitalized tissue or slough by means of flushing, brushing, or washing. (Irrigation) Other; please specify Unable to determine (no explanation for clinical findings) Excisional MTDD
== END 2018-01-06 19:29 | disposition home health service (06) | DRG 623 ==
LOC: 2ORMAIN 15:26 → 3SUR 15:35
PROVIDERS: ADMIT Orthopaedic Surgery; ATTEND Orthopaedic Surgery
PROC: 0JBR0ZZ Excision of Left Foot Subcutaneous Tissue and Fascia, Open Approach (ICD-10-PCS; principal; 2018-01-03 13:20)
DX: E11.628 Type 2 diabetes mellitus with other skin complications (principal); L02.612 Cutaneous abscess of left foot; L03.116 Cellulitis of left lower limb; E11.22 Type 2 diabetes mellitus with diabetic chronic kidney disease; E11.42 Type 2 diabetes mellitus with diabetic polyneuropathy; E11.610 Type 2 diabetes mellitus with diabetic neuropathic arthropathy; E11.621 Type 2 diabetes mellitus with foot ulcer; E11.65 Type 2 diabetes mellitus with hyperglycemia; E66.9 Obesity, unspecified; E78.5 Hyperlipidemia, unspecified; E87.5 Hyperkalemia; I12.9 Hypertensive chronic kidney disease with stage 1 through stage 4 chronic kidney disease, or unspecified chronic kidney disease; L97.529 Non-pressure chronic ulcer of other part of left foot with unspecified severity; J45.20 Mild intermittent asthma, uncomplicated; N18.3 Chronic kidney disease, stage 3 (moderate); S90.852A Superficial foreign body, left foot, initial encounter; Z68.39 Body mass index [BMI] 39.0-39.9, adult; H91.90 Unspecified hearing loss, unspecified ear; H54.7 Unspecified visual loss; N17.9 Acute kidney failure, unspecified; F17.220 Nicotine dependence, chewing tobacco, uncomplicated; Z87.891 Personal history of nicotine dependence; Z79.899 Other long term (current) drug therapy; Z79.4 Long term (current) use of insulin; Z80.9 Family history of malignant neoplasm, unspecified; Y92.009 Unspecified place in unspecified non-institutional (private) residence as the place of occurrence of the external cause; W25.XXXA Contact with sharp glass, initial encounter; W45.8XXA Other foreign body or object entering through skin, initial encounter
CPT/HCPCS: 80048; 80053; 80202; 83036; 84132; 85025; 85652; 86140; 87040; 93005; 94640

== ENCOUNTER → 2018-02-24 | Outpatient (CLI) | payer MEDICARE, OTHER | END | disposition home or self-care (01) | LOC: RADUSWWP 09:09 | PROVIDERS: ATTEND Internal Medicine Infectious Disease | DX: M79.604 Pain in right leg (principal); M79.605 Pain in left leg | CPT/HCPCS: 93922 ==

== ENCOUNTER → 2019-03-13 | Outpatient (CLI) | payer MEDICARE, OTHER ==
--- NOTE | 2019-03-13 11:47 | US ---
EXAMINATION TYPE: US kidneys/renal and bladder DATE OF EXAM: 03/13/2019 COMPARISON: US 2012 CLINICAL HISTORY: R94.4 ABN KIDNEY RESULTS. Abnormal labs EXAM MEASUREMENTS: Right Kidney: 11.4 x 6.3 x 6.0 cm Left Kidney: 9.9 x 5.2 x 5.2 cm Right Kidney: Appeared wnl Left Kidney: Smaller in size and cortical thinning when compared to right kidney Bladder: wnl Bilateral Jets seen: Yes Incidental finding accessory spleen There is no evidence for hydronephrosis at this point in time. No nephrolithiasis is seen. No susan s are identified. The urinary bladder is anechoic. Bilateral ureteral jets are seen. IMPRESSION: Slight smaller size of the left kidney and mild cortical renal thickening sequela of road [employer] renal disease. No hydronephrosis or nephrolithiasis.
== END | disposition home or self-care (01) ==
LOC: RADUSWWP 11:01
PROVIDERS: ATTEND Family Medicine
DX: N18.9 Chronic kidney disease, unspecified (principal); N28.89 Other specified disorders of kidney and ureter
CPT/HCPCS: 76770

== ENCOUNTER → 2019-04-23 | Outpatient (CLI) | payer MEDICARE, OTHER ==
[2019-04-23 09:45] LABS: Basophils # (A) 0.1 k/uL (0-0.2); Basophils % (A) 1 %; Eosinophils # (A) 0.6 k/uL (0-0.7); Eosinophils % (A) 9 %; HCT 34.9 % (39.0-53.0); HGB 11.4 gm/dL (13.0-17.5); Lymphocytes # (A) 1.7 k/uL (1.0-4.8); Lymphocytes % (A) 25 %; MCH 28.8 pg (25.0-35.0); MCHC 32.7 g/dL (31.0-37.0); MCV 87.9 fL (80.0-100.0); Mean Platelet Volume 8.5; Monocytes # (A) 0.5 k/uL (0-1.0); Monocytes % (A) 7 %; Neutrophils # (A) 3.7 k/uL (1.3-7.7); Neutrophils % (A) 55 %; Platelet Count 166 k/uL (150-450); RBC 3.97 m/uL (4.30-5.90); RDW 13.1 % (11.5-15.5); WBC 6.8 k/uL (3.8-10.6)
[2019-04-23 16:27] LABS: African American GFR (CKD) 42.9 (60.0-200.0); Albumin/Globulin Ratio 2.22 (1.60-3.17); Anion Gap 8.1 mmol/L (4.00-12.00); Calcium 9.3 mg/dL (8.7-10.3); Carbon Dioxide 26.9 mmol/L (21.6-31.8); Globulin 1.8 g/dL (1.6-3.3); Potassium 5.2 mmol/L (3.5-5.5); Total Bilirubin 0.4 mg/dL (0.2-1.2); Total Protein 5.8 g/dL (6.2-8.2)
== END | disposition home or self-care (01) ==
LOC: LABWHC1 09:16
PROVIDERS: ATTEND Family Medicine
DX: I10 Essential (primary) hypertension (principal); J45.909 Unspecified asthma, uncomplicated; R94.4 Abnormal results of kidney function studies
CPT/HCPCS: 36415; 80053; 85025

== ENCOUNTER 2020-04-14 19:03 | Inpatient (IN) | payer MEDICARE, OTHER ==
[2020-04-14] MEDS ORDERED: VANCOMYCIN IV PER PHARMACY 1 EACH MISC MISCELLANE PRN (20:07)
[2020-04-14] MEDS ORDERED: VANCOMYCIN 2,000 MG in SODIUM CHLORIDE 0.9% 500 ML 500 ML IVPB ONE (20:30)
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
[2020-04-14 22:07] LABS: Potassium 4.7 mmol/L (3.5-5.1)
[2020-04-14 22:08] LABS: Albumin 3.6 g/dL (3.5-5.0); Calcium 9.8 mg/dL (8.4-10.2); Total Bilirubin 0.4 mg/dL (0.2-1.3); Total Protein 7.2 g/dL (6.3-8.2)
[2020-04-14 22:10] LABS: Basophils # (A) 0.1 k/uL (0-0.2); Basophils % (A) 1 %; Eosinophils # (A) 0.4 k/uL (0-0.7); Eosinophils % (A) 4 %; HCT 29.3 % (39.0-53.0); HGB 10.1 gm/dL (13.0-17.5); Lymphocytes # (A) 1.5 k/uL (1.0-4.8); Lymphocytes % (A) 13 %; MCH 28.6 pg (25.0-35.0); MCHC 34.4 g/dL (31.0-37.0); MCV 82.9 fL (80.0-100.0); Mean Platelet Volume 7.2; Monocytes # (A) 0.6 k/uL (0-1.0); Monocytes % (A) 6 %; Neutrophils # (A) 8.7 k/uL (1.3-7.7); Neutrophils % (A) 76 %; Platelet Count 298 k/uL (150-450); RBC 3.53 m/uL (4.30-5.90); WBC 11.4 k/uL (3.8-10.6)
[2020-04-14] MEDS ORDERED: NALOXONE 0.4 MG/ML 1 ML VIAL IV PRN (22:37)
[2020-04-14] MEDS ORDERED: ONDANSETRON 4 MG/2 ML VIAL IVP STA (22:39)
[2020-04-14] MEDS ORDERED: HYDROmorphone 1 MG/ML 1 ML SYRINGE IVP STA (22:39)
[2020-04-14] MEDS ORDERED: ALBUTEROL HFA INHALER INHALATION PRN (23:15)
[2020-04-14] MEDS ORDERED: PROMETHAZINE 25 MG TAB PO PRN (23:15)
[2020-04-14] MEDS ORDERED: TRIAMCINOLONE ACET 0.5% CREAM 15 GM TUBE TOPICAL PRN (23:15)
[2020-04-14] MEDS ORDERED: CYCLOBENZAPRINE 10 MG TAB PO PRN (23:15)
[2020-04-15 03:46] LABS: Glucose,Whole Blood 142 mg/dL (75-99)
[2020-04-15 07:29] LABS: Glucose,Whole Blood 178 mg/dL (75-99)
[2020-04-15] MEDS: MAGNESIUM OXIDE 400 MG TAB PO SCH (08:15)
[2020-04-15] MEDS: FUROSEMIDE 20 MG TAB PO SCH (08:15)
[2020-04-15] MEDS: CALCIUM CARBONATE 500 MG CHEWABLE PO SCH ×2 (08:15→21:41)
[2020-04-15] MEDS: CHOLECALCIFEROL 1,000 UNIT TAB PO SCH (08:15)
[2020-04-15] MEDS: TAMSULOSIN 0.4 MG CAP.ER.24H PO SCH (08:15)
[2020-04-15] MEDS: PREGABALIN 100 MG CAP PO SCH ×2 (08:15→21:41)
[2020-04-15] MEDS: ATORVASTATIN 40 MG TAB PO SCH (08:15)
[2020-04-15] MEDS: metFORMIN 500 MG TAB PO SCH ×2 (08:16→21:41)
[2020-04-15] MEDS: HYDROcodone/APAP 5-325MG 1 EACH TAB PO PRN ×2 (08:20→19:31)
[2020-04-15] MEDS: GLIMEPIRIDE 4 MG TAB PO SCH ×2 (08:21→21:41)
[2020-04-15] MEDS: NON FORMULARY DRUG (Liraglutide [Victoza 3-Pak] 0.6 MG/0.1 ML Pen.Injctr) SQ SCH (10:48)
[2020-04-15 11:22] LABS: Glucose,Whole Blood 165 mg/dL (75-99)
[2020-04-15] MEDS: VANCOMYCIN 2,000 MG in SODIUM CHLORIDE 0.9% 500 ML 500 ML IVPB SCH (15:15)
[2020-04-15 16:43] LABS: Glucose,Whole Blood 119 mg/dL (75-99)
[2020-04-15 21:20] LABS: Glucose,Whole Blood 219 mg/dL (75-99)
[2020-04-15] MEDS: ZOLPIDEM 5 MG TAB PO SCH (21:41)
[2020-04-15] MEDS: INSULIN DETEMIR (LEVEMIR) 100 UNIT/ML SYR SQ SCH (21:41)
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
[2020-04-16] MEDS: HEPARIN SODIUM,PORCINE 5,000 UNIT/ML 1 ML VIAL SQ SCH ×4 (00:06→22:49)
[2020-04-16] MEDS: HYDROcodone/APAP 5-325MG 1 EACH TAB PO PRN ×3 (04:56→20:47)
[2020-04-16] MEDS: VANCOMYCIN 2,000 MG in SODIUM CHLORIDE 0.9% 500 ML 500 ML IVPB SCH (05:43)
[2020-04-16 06:09] LABS: Basophils # (A) 0.1 k/uL (0-0.2); Basophils % (A) 1 %; Eosinophils # (A) 0.4 k/uL (0-0.7); Eosinophils % (A) 5 %; HCT 28.8 % (39.0-53.0); HGB 9.5 gm/dL (13.0-17.5); Lymphocytes # (A) 1.7 k/uL (1.0-4.8); Lymphocytes % (A) 18 %; MCH 27.7 pg (25.0-35.0); MCHC 32.8 g/dL (31.0-37.0); MCV 84.2 fL (80.0-100.0); Monocytes # (A) 0.5 k/uL (0-1.0); Monocytes % (A) 6 %; Neutrophils # (A) 6.6 k/uL (1.3-7.7); Neutrophils % (A) 70 %; Platelet Count 329 k/uL (150-450); RBC 3.42 m/uL (4.30-5.90); RDW 12.9 % (11.5-15.5); WBC 9.4 k/uL (3.8-10.6)
[2020-04-16] MEDS: FUROSEMIDE 20 MG TAB PO SCH (07:35)
[2020-04-16] MEDS: CALCIUM CARBONATE 500 MG CHEWABLE PO SCH ×2 (07:35→20:47)
[2020-04-16] MEDS: MAGNESIUM OXIDE 400 MG TAB PO SCH (07:35)
[2020-04-16] MEDS: CHOLECALCIFEROL 1,000 UNIT TAB PO SCH (07:35)
[2020-04-16] MEDS: TAMSULOSIN 0.4 MG CAP.ER.24H PO SCH (07:35)
[2020-04-16] MEDS: GLIMEPIRIDE 4 MG TAB PO SCH ×2 (07:35→20:47)
[2020-04-16] MEDS: ATORVASTATIN 40 MG TAB PO SCH (07:36)
[2020-04-16] MEDS: INSULIN ASPART (NovoLOG) 100 UNIT/ML VIAL SQ SCH ×4 (07:36→20:48)
[2020-04-16] MEDS: PREGABALIN 100 MG CAP PO SCH ×2 (07:36→20:47)
[2020-04-16 07:37] LABS: Glucose,Whole Blood 96 mg/dL (75-99)
[2020-04-16 10:28] LABS: African American GFR (CKD) 42.6 (60.0-200.0); Anion Gap 8.5 mmol/L (4.00-12.00); BUN/Creat Ratio 19.5 Ratio (12.00-20.00); Calcium 9.9 mg/dL (8.7-10.3); Carbon Dioxide 27.5 mmol/L (21.6-31.8); Non-African American GFR(CKD) 36.7 (60.0-200.0); Potassium 4.3 mmol/L (3.5-5.5)
[2020-04-16] MEDS: NON FORMULARY DRUG (Liraglutide [Victoza 3-Pak] 0.6 MG/0.1 ML Pen.Injctr) SQ SCH (10:47)
[2020-04-16 11:45] LABS: Glucose,Whole Blood 262 mg/dL (75-99)
[2020-04-16 16:44] LABS: Glucose,Whole Blood 191 mg/dL (75-99)
--- NOTE | 2020-04-16 18:55 | CONS ---
CONSULTATION DATE OF SERVICE: 04/16/2020 REASON FOR CONSULTATION: Left lower extremity cellulitis. HISTORY OF PRESENT ILLNESS: The patient is a 55-year-old male who presented to the hospital April 14, 2020 for evaluation of left leg pain, swelling and redness. The patient apparently mentioned he had been treated with Keflex since Saturday. However, his symptom have not improved. The patient does give a history of laceration to the left heel area from his kid's toy but there was no bleeding or any drainage. The patient noticed to have persistent swelling and redness to the left leg and pain more of a dull aching to sharp 5 to 6 out of 10 with no radiation. Did not have any drainage. Did have some chills but denies high-grade fever. With these symptoms, the patient presented to hospital. On arrival to the ER, the patient has been afebrile and no fever has been recorded since then. The patient did have white count 11.4, subsequent white count 9.4. He noticed to have kidney function 1.8 that subsequently got worse to 2.0. The patient has been treated with vancomycin and cefazolin with worsening of his kidney function. Infectious Disease was consulted for further management of antibiotic therapy. REVIEW OF SYSTEMS: Positive points have been mentioned in HPI. Rest of systems are negative. PAST MEDICAL HISTORY: Asthma, diabetes mellitus, hypertension, hyperlipidemia, Charcot foot, neuropathy, and previous episode of left lower extremity cellulitis. PAST SURGICAL HISTORY: Tonsillectomy, right knee meniscus repair, left leg surgery. SOCIAL HISTORY: Denies smoking. Occasionally drinks. Did admit to marijuana use. FAMILY HISTORY: Both parents with history of cancer. ALLERGIES: No known drug allergies. MEDICATION: Currently include the patient is on vancomycin pharmacy to dose, Ambien, Flomax, Lyrica, Narcan, Mag oxide, Levemir, Lasix, Flexeril, cefazolin 2 grams q.8 hours, TUMS, Lipitor and [place]. PHYSICAL EXAMINATION: Blood pressure 139/84 with a pulse of 90, temperature 98.9. He is 93% on room air. General description: The patient is a middle-aged male lying in bed in no distress. No tachypnea or accessory muscles of respiration use. HEENT: Examination shows no pallor or scleral icterus. Oral mucous membranes dry. No pharyngeal erythema or thrush. NECK: Trachea central. No thyromegaly. LUNGS: Unlabored breathing. Clear to auscultation anteriorly. HEART: S1, S2. Regular rate and rhythm. ABDOMEN: Soft, no tenderness. Left leg with diffuse swelling and redness slightly warm to touch. Left heel did have a wound which seemed to have dried out. No purulent drainage. NEUROLOGICAL patient is awake, alert, oriented times three. Mood and affect normal. LABS: BUN of 39, creatinine 2.0. Hemoglobin 9.2, white count 9.5, admission white count 11.4. DIAGNOSTIC IMPRESSION/PLAN: 1. Patient with acute left lower extremity cellulitis in this patient who did have diffuse swelling and redness to the legs, more likely streptococcal cellulitis, did not respond to oral Keflex, possibly because of burden of disease and clinically not behaving as MRSA infection. 2. Patient with renal cell insufficiency high risk for Nephrotoxicity from vancomycin. PLAN: 1. Discontinue vancomycin. 2. Continue patient on cefazolin 2 g q8 hours. 3. Jeyson wrap to the leg from just above to below the knee. 4. We will recheck his inflammatory markers and kidney function tomorrow. 5. We will follow on clinical condition and culture to further adjust medication if needed. Thank you for this consultation. Will follow this patient along with you. MMODL / IJN: [id number] /
[2020-04-16 20:36] LABS: Glucose,Whole Blood 329 mg/dL (75-99)
[2020-04-16] MEDS: INSULIN DETEMIR (LEVEMIR) 100 UNIT/ML SYR SQ SCH (20:47)
[2020-04-16] MEDS: ZOLPIDEM 5 MG TAB PO SCH (20:47)
[2020-04-17 06:56] LABS: Basophils # (A) 0.1 k/uL (0-0.2); Basophils % (A) 1 %; Eosinophils # (A) 0.3 k/uL (0-0.7); Eosinophils % (A) 4 %; HCT 30.9 % (39.0-53.0); HGB 9.8 gm/dL (13.0-17.5); Hypochromasia Slight; Lymphocytes # (A) 1.8 k/uL (1.0-4.8); Lymphocytes % (A) 21 %; MCH 27.2 pg (25.0-35.0); MCHC 31.7 g/dL (31.0-37.0); MCV 85.9 fL (80.0-100.0); Monocytes # (A) 0.4 k/uL (0-1.0); Monocytes % (A) 5 %; Neutrophils # (A) 5.7 k/uL (1.3-7.7); Neutrophils % (A) 69 %; Platelet Count 355 k/uL (150-450); RBC 3.59 m/uL (4.30-5.90); RDW 13.3 % (11.5-15.5); WBC 8.4 k/uL (3.8-10.6)
[2020-04-17 07:32] LABS: Glucose,Whole Blood 198 mg/dL (75-99)
[2020-04-17] MEDS: CHOLECALCIFEROL 1,000 UNIT TAB PO SCH (07:37)
[2020-04-17] MEDS: TAMSULOSIN 0.4 MG CAP.ER.24H PO SCH (07:37)
[2020-04-17] MEDS: CALCIUM CARBONATE 500 MG CHEWABLE PO SCH ×2 (07:37→20:59)
[2020-04-17] MEDS: FUROSEMIDE 20 MG TAB PO SCH (07:37)
[2020-04-17] MEDS: ATORVASTATIN 40 MG TAB PO SCH (07:37)
[2020-04-17] MEDS: PREGABALIN 100 MG CAP PO SCH ×2 (07:37→21:00)
[2020-04-17] MEDS: MAGNESIUM OXIDE 400 MG TAB PO SCH (07:37)
[2020-04-17] MEDS: INSULIN ASPART (NovoLOG) 100 UNIT/ML VIAL SQ SCH ×6 (07:38→20:59)
[2020-04-17] MEDS: GLIMEPIRIDE 4 MG TAB PO SCH (07:38)
[2020-04-17] MEDS: HEPARIN SODIUM,PORCINE 5,000 UNIT/ML 1 ML VIAL SQ SCH ×3 (07:38→23:32)
[2020-04-17] MEDS: HYDROcodone/APAP 5-325MG 1 EACH TAB PO PRN ×3 (07:42→21:00)
[2020-04-17] MEDS: NON FORMULARY DRUG (Liraglutide [Victoza 3-Pak] 0.6 MG/0.1 ML Pen.Injctr) SQ SCH (10:10)
[2020-04-17 11:30] LABS: Glucose,Whole Blood 325 mg/dL (75-99)
[2020-04-17 12:16] LABS: African American GFR (CKD) 42.6 (60.0-200.0); Anion Gap 6.5 mmol/L (4.00-12.00); BUN/Creat Ratio 16.5 Ratio (12.00-20.00); C Reactive Protein 3.6 mg/dL (0.0-0.8); Calcium 9.4 mg/dL (8.7-10.3); Carbon Dioxide 28.5 mmol/L (21.6-31.8); Non-African American GFR(CKD) 36.7 (60.0-200.0); Potassium 4.5 mmol/L (3.5-5.5)
[2020-04-17] MEDS ORDERED: VANCOMYCIN TROUGH DUE 1 EACH MISC MISCELLANE ONE (14:00)
[2020-04-17 16:32] LABS: Glucose,Whole Blood 181 mg/dL (75-99)
[2020-04-17 20:45] LABS: Glucose,Whole Blood 269 mg/dL (75-99)
[2020-04-17] MEDS: INSULIN DETEMIR (LEVEMIR) 100 UNIT/ML SYR SQ SCH (20:59)
[2020-04-17] MEDS: ZOLPIDEM 5 MG TAB PO SCH (21:00)
--- NOTE | 2020-04-17 22:12 | PN ---
PROGRESS NOTE DATE OF SERVICE: 04/17/2020 REASON FOR FOLLOWUP: Left lower extremity cellulitis. INTERVAL HISTORY: The patient is currently afebrile. The patient is breathing comfortably. The patient denies having any chest pain. No shortness of breath or cough. The left leg discomfort has slightly decreased. No nausea. No vomiting. No diarrhea. PHYSICAL EXAMINATION: Blood pressure 120/82 with a pulse of 90. Temperature 97.5. He is 97% on room air. General description: The patient is a middle-aged male up in the room in no distress. Respiratory system: Unlabored breathing, clear to auscultation anteriorly. Heart S1, S2. Regular rate and rhythm. ABDOMEN: Soft, no tenderness. Left leg swelling persists. Redness has slightly decreased. DIAGNOSTIC IMPRESSION AND PLAN: Patient with acute left lower extremity cellulitis with diffuse swelling and redness, likely streptococcal disease. The patient did have borderline kidney function high risk of nephrotoxicity from vancomycin. Currently on cefazolin to continue for another 24 hours. Has been advised Jeyson wrap to the leg to keep the swelling down and we will reevaluate the patient tomorrow. Continue supportive care. MMODL / IJN: [id number] /
--- NOTE | 2020-04-17 22:28 | P.PN ---
Subjective Progress Note Date: 04/16/20 Principal diagnosis: Left diabetic foot cellulitis. Patient is a 55-year-old male with a known history of hypertension, diabetes type 2, hyperlipidemia, diabetic peripheral neuropathy, chronic pain, currently on pain pump, diabetic left lower extremity cellulitis previously presents to ER with complaints of left lower extremity redness and swelling and pain worsening for the past 2 weeks. Patient is states that he started having swelling and redness of the left leg at the end of March 2020 and was seen by his primary care physician. Patient was started on Keflex on last which he has been taking without much improvement. Patient presents to ER due to worsening symptoms. Otherwise denies any complaints of fever or chills. No nausea vomiting abdominal pain or diarrhea. No dysuria. No headache or dizziness or lightheadedness. No chest pain or shortness breath. Lab data showed WBC 11.4, hemoglobin 10.1 and platelets 298 BUN 37 and creatinine 1.81 Patient has been afebrile. 04/16/2020 Patient is currently resting in the bed comfortably. Still complains of left lower extremity pain. Redness and swelling is improving. Antibiotics in the form of cefazolin. ID is on board. Lab data showed BUN 39 and creatinine 2.0, 9 WBC 9.4 and hemoglobin 9.5 Afebrile. No nausea vomiting abdominal pain or diarrhea. No dysuria or hematu cherelle. Current medications reviewed. Objective - Vital Signs Vital signs: Vital Signs Temp 98.0 F 04/16/20 20:30 Pulse 90 04/16/20 20:30 Resp 18 04/16/20 20:30 BP 138/84 04/16/20 20:30 Pulse Ox 97 04/16/20 20:30 Intake & Output 04/16/20 04/16/20 04/17/20 06:59 18:59 06:59 Intake Total 100 356 Balance 100 356 Intake: Intake, IV Titration 100 Amount ceFAZolin 2 gm In Sodium 100 Chloride 0.9% 50 ml @ 100 mls/hr IVPB Q8H [facility] Rx#: [id number] Oral 356 Other: # Voids 2 3 - Exam PHYSICAL EXAMINATION: Patient is lying in the bed comfortably, no acute distress, awake alert and oriented.. HEENT: Normocephalic. Neck is supple. Pupils reactive. Nostrils clear. Oral cavity is moist. Ears reveal no drainage. Neck reveals no JVD, carotid bruits, or thyromegaly. CHEST EXAMINATION: Trachea is central. Symmetrical expansion. Lung rivera clear to auscultation and percussion. CARDIAC: Normal S1, S2 with no gallops. No murmurs ABDOMEN: Soft. Bowel sounds normal. No organomegaly. No abdominal bruits. Extremities: Left leg swelling, redness and tenderness extending up to knee. No evidence of purulent drainage noted.. No clubbing or cyanosis Neurologically awake, alert, oriented x3 with well-coordinated movements. No focal deficits noted Skin: No rash or skin lesions. Psychiatric: Coperative. Nonsuicidal Musculoskeletal: No joint swelling or deformity. Normal range of motion. - Labs CBC & Chem 7: 04/17/20 06:34 04/17/20 06:34 Labs: Abnormal Lab Results - Last 24 Hours (Table) 04/16/20 04/16/20 04/16/20 Range/Units 05:43 05:43 11:42 RBC 3.42 L (4.30-5.90) m/uL Hgb 9.5 L (13.0-17.5) gm/dL Hct 28.8 L (39.0-53.0) % BUN 39.0 H (9.0-27.0) mg/dL Creatinine 2.0 H (0.6-1.5) mg/dL Est GFR (CKD-EPI)AfAm 42.6 L (60.0-200.0) Est GFR (CKD-EPI)NonAf 36.7 L (60.0-200.0) Glucose 128 H (70-110) mg/dL POC Glucose (mg/dL) 262 H (75-99) mg/dL 04/16/20 04/16/20 Range/Units 16:43 20:35 RBC (4.30-5.90) m/uL Hgb (13.0-17.5) gm/dL Hct (39.0-53.0) % BUN (9.0-27.0) mg/dL Creatinine (0.6-1.5) mg/dL Est GFR (CKD-EPI)AfAm (60.0-200.0) Est GFR (CKD-EPI)NonAf (60.0-200.0) Glucose (70-110) mg/dL POC Glucose (mg/dL) 191 H 329 H (75-99) mg/dL Microbiology - Last 24 Hours (Table) 04/14/20 23:30 Blood Culture - Preliminary Blood No Growth after 24 hours 04/14/20 21:48 Blood Culture - Preliminary Blood No Growth after 24 hours Assessment and Plan Assessment: Left lower extremity diabetic foot cellulitis. Failed outpatient therapy History of left lower extremity cellulitis Acute on chronic renal disease stage III Hypertension Diabetes type 2 insulin-dependent Chronic pain Diabetic peripheral neuropathy Currently on pain pump Charcot foot Marijuana use DVT prophylaxis with heparin subcu Plan: Patient will be continued on antibiotics of cefazolin. Follow-up culture reports. Continue with insulin dose and Metformin is on hold. Monitor blood sugar closely. Follow-up renal function and further recommendations based on clinical course. ID service will be consulted. Time with Patient: Greater than 30
--- NOTE | 2020-04-17 22:29 | P.PN ---
Subjective Progress Note Date: 04/17/20 Principal diagnosis: Left diabetic foot cellulitis. Patient is a 55-year-old male with a known history of hypertension, diabetes type 2, hyperlipidemia, diabetic peripheral neuropathy, chronic pain, currently on pain pump, diabetic left lower extremity cellulitis previously presents to ER with complaints of left lower extremity redness and swelling and pain worsening for the past 2 weeks. Patient is states that he started having swelling and redness of the left leg at the end of March 2020 and was seen by his primary care physician. Patient was started on Keflex on last which he has been taking without much improvement. Patient presents to ER due to worsening symptoms. Otherwise denies any complaints of fever or chills. No nausea vomiting abdominal pain or diarrhea. No dysuria. No headache or dizziness or lightheadedness. No chest pain or shortness breath. Lab data showed WBC 11.4, hemoglobin 10.1 and platelets 298 BUN 37 and creatinine 1.81 Patient has been afebrile. 04/16/2020 Patient is currently resting in the bed comfortably. Still complains of left lower extremity pain. Redness and swelling is improving. Antibiotics in the form of cefazolin. ID is on board. Lab data showed BUN 39 and creatinine 2.0, 9 WBC 9.4 and hemoglobin 9.5 Afebrile. No nausea vomiting abdominal pain or diarrhea. No dysuria or hematu cherelle. 04/17/2020 Patient is currently resting in the bed comfortable. No complaints of chest pain or shortness breath. Continued on antibiotics at home cefazolin. Y ID is on board. Left lower knee swelling and redness is much improved. Lab data showed BUN 33 and creatinine 2.0 globin 9.8. CRP 3.6 Blood sugars elevated this afternoon. Currently on insulin sliding scale and titrate dose. Patient is afebrile. Leg pain is better. Current medications reviewed. Objective - Vital Signs Vital signs: Vital Signs Temp 97.6 F 04/17/20 14:00 Pulse 87 04/17/20 14:00 Resp 16 04/17/20 14:00 BP 117/77 04/17/20 14:00 Pulse Ox 97 04/17/20 14:00 Intake & Output 04/16/20 04/17/20 04/17/20 18:59 06:59 18:59 Intake Total 356 100 780 Balance 356 100 780 Intake: Intake, IV Titration 100 Amount ceFAZolin 2 gm In Sodium 100 Chloride 0.9% 50 ml @ 100 mls/hr IVPB Q8H [facility] Rx#: [id number] Oral 356 780 Other: # Voids 3 3 - Exam PHYSICAL EXAMINATION: Patient is lying in the bed comfortably, no acute distress, awake alert and oriented.. HEENT: Normocephalic. Neck is supple. Pupils reactive. Nostrils clear. Oral cavity is moist. Ears reveal no drainage. Neck reveals no JVD, carotid bruits, or thyromegaly. CHEST EXAMINATION: Trachea is central. Symmetrical expansion. Lung rivera clear to auscultation and percussion. CARDIAC: Normal S1, S2 with no gallops. No murmurs ABDOMEN: Soft. Bowel sounds normal. No organomegaly. No abdominal bruits. Extremities: Left leg swelling, redness and tenderness extending up to knee. No evidence of purulent drainage noted.. No clubbing or cyanosis Neurologically awake, alert, oriented x3 with well-coordinated movements. No focal deficits noted Skin: No rash or skin lesions. Psychiatric: Coperative. Nonsuicidal Musculoskeletal: No joint swelling or deformity. Normal range of motion. - Labs CBC & Chem 7: 04/17/20 06:34 04/17/20 06:34 Labs: Abnormal Lab Results - Last 24 Hours (Table) 04/16/20 04/16/20 04/17/20 Range/Units 16:43 20:35 06:34 RBC (4.30-5.90) m/uL Hgb (13.0-17.5) gm/dL Hct (39.0-53.0) % BUN 33.0 H (9.0-27.0) mg/dL Creatinine 2.0 H (0.6-1.5) mg/dL Est GFR (CKD-EPI)AfAm 42.6 L (60.0-200.0) Est GFR (CKD-EPI)NonAf 36.7 L (60.0-200.0) Glucose 205 H (70-110) mg/dL POC Glucose (mg/dL) 191 H 329 H (75-99) mg/dL C-Reactive Protein 3.6 H (0.0-0.8) mg/dL 04/17/20 04/17/20 04/17/20 Range/Units 06:34 07:28 11:28 RBC 3.59 L (4.30-5.90) m/uL Hgb 9.8 L (13.0-17.5) gm/dL Hct 30.9 L (39.0-53.0) % BUN (9.0-27.0) mg/dL Creatinine (0.6-1.5) mg/dL Est GFR (CKD-EPI)AfAm (60.0-200.0) Est GFR (CKD-EPI)NonAf (60.0-200.0) Glucose (70-110) mg/dL POC Glucose (mg/dL) 198 H 325 H (75-99) mg/dL C-Reactive Protein (0.0-0.8) mg/dL Microbiology - Last 24 Hours (Table) 04/14/20 23:30 Blood Culture - Preliminary Blood No Growth after 48 hours 04/14/20 21:48 Blood Culture - Preliminary Blood No Growth after 48 hours Assessment and Plan Assessment: Left lower extremity diabetic foot cellulitis. Failed outpatient therapy History of left lower extremity cellulitis Acute on chronic renal disease stage III Hypertension Diabetes type 2 insulin-dependent Chronic pain Diabetic peripheral neuropathy Currently on pain pump Charcot foot Marijuana use DVT prophylaxis with heparin subcu Plan: Patient will be continued on antibiotics of cefazolin. Follow-up culture reports. Continue with insulin dose and Metformin is on hold. Monitor blood sugar closely. Follow-up renal function and further recommendations based on clinical course. ID service will be consulted. Time with Patient: Greater than 30
[2020-04-18 07:09] LABS: Basophils # (A) 0.1 k/uL (0-0.2); Basophils % (A) 1 %; Eosinophils # (A) 0.4 k/uL (0-0.7); Eosinophils % (A) 6 %; HCT 29.7 % (39.0-53.0); HGB 9.5 gm/dL (13.0-17.5); Hypochromasia Slight; Lymphocytes # (A) 1.8 k/uL (1.0-4.8); Lymphocytes % (A) 24 %; MCH 27.5 pg (25.0-35.0); MCHC 32.1 g/dL (31.0-37.0); MCV 85.5 fL (80.0-100.0); Mean Platelet Volume 7.6; Monocytes # (A) 0.4 k/uL (0-1.0); Monocytes % (A) 6 %; Neutrophils # (A) 4.7 k/uL (1.3-7.7); Neutrophils % (A) 63 %; Platelet Count 361 k/uL (150-450); RBC 3.47 m/uL (4.30-5.90); RDW 13.5 % (11.5-15.5); WBC 7.5 k/uL (3.8-10.6)
[2020-04-18 07:15] LABS: Glucose,Whole Blood 220 mg/dL (75-99)
[2020-04-18] MEDS: INSULIN ASPART (NovoLOG) 100 UNIT/ML VIAL SQ SCH ×8 (08:02→20:35)
[2020-04-18] MEDS: HEPARIN SODIUM,PORCINE 5,000 UNIT/ML 1 ML VIAL SQ SCH ×2 (08:02→16:03)
[2020-04-18] MEDS: TAMSULOSIN 0.4 MG CAP.ER.24H PO SCH (08:03)
[2020-04-18] MEDS: ATORVASTATIN 40 MG TAB PO SCH (08:03)
[2020-04-18] MEDS: MAGNESIUM OXIDE 400 MG TAB PO SCH (08:03)
[2020-04-18] MEDS: PREGABALIN 100 MG CAP PO SCH ×2 (08:03→20:47)
[2020-04-18] MEDS: CALCIUM CARBONATE 500 MG CHEWABLE PO SCH ×2 (08:03→20:37)
[2020-04-18] MEDS: FUROSEMIDE 20 MG TAB PO SCH (08:03)
[2020-04-18] MEDS: CHOLECALCIFEROL 1,000 UNIT TAB PO SCH (08:03)
[2020-04-18 09:28] LABS: African American GFR (CKD) 45.3 (60.0-200.0); Anion Gap 12.5 mmol/L (4.00-12.00); BUN/Creat Ratio 14.74 Ratio (12.00-20.00); C Reactive Protein 2.6 mg/dL (0.0-0.8); Calcium 9.2 mg/dL (8.7-10.3); Carbon Dioxide 30.5 mmol/L (21.6-31.8); Non-African American GFR(CKD) 39.1 (60.0-200.0); Potassium 4.1 mmol/L (3.5-5.5)
[2020-04-18 11:37] LABS: Glucose,Whole Blood 246 mg/dL (75-99)
[2020-04-18] MEDS: NON FORMULARY DRUG (Liraglutide [Victoza 3-Pak] 0.6 MG/0.1 ML Pen.Injctr) SQ SCH (13:06)
[2020-04-18] MEDS: DAPTOmycin 500 MG in SODIUM CHLORIDE 0.9% 50 ML IVPB SCH (13:17)
--- NOTE | 2020-04-18 13:38 | PN ---
PROGRESS NOTE DATE OF SERVICE: 04/18/2020 REASON FOR FOLLOWUP: Left lower extremity cellulitis. INTERVAL HISTORY: The patient is currently afebrile. Patient is breathing comfortably. Pain to the left leg is slightly improved. Still has significant swelling in his left medial lower leg area. No chest pain, shortness of breath or cough. No abdominal pain or diarrhea. PHYSICAL EXAMINATION: Blood pressure 147/90 with a pulse of 84, temperature 98.5. He is 97% room air. General description is a middle-aged male lying in bed in no distress RESPIRATORY SYSTEM: Unlabored breathing, clear to auscultation anteriorly. HEART: S1, S2. Regular rate and rhythm. ABDOMEN: Soft, no tenderness. Left leg swelling has improved, but not as expected with 2 days of IV antibiotic. LABS: Hemoglobin 9.5, white count 7.5, BUN of 28, creatinine 1.9. DIAGNOSTIC IMPRESSION AND PLAN: Patient with acute left lower extremity cellulitis, seemed to have failed responding to the cefazolin therapy. Patient do have borderline kidney function high risk of nephrotoxicity from vancomycin. Recommend daptomycin 500 mg daily for 10 days to 2 weeks for which a Midline will be placed and close outpatient followup. Continue with Jeyson wrap. MMODL / IJN: [id number] /
[2020-04-18 16:48] LABS: Glucose,Whole Blood 226 mg/dL (75-99)
[2020-04-18 20:20] LABS: Glucose,Whole Blood 293 mg/dL (75-99)
[2020-04-18] MEDS: INSULIN DETEMIR (LEVEMIR) 100 UNIT/ML SYR SQ SCH (20:36)
[2020-04-18] MEDS: HYDROcodone/APAP 5-325MG 1 EACH TAB PO PRN (20:37)
[2020-04-18] MEDS: ZOLPIDEM 5 MG TAB PO SCH (20:47)
[2020-04-19] MEDS: HEPARIN SODIUM,PORCINE 5,000 UNIT/ML 1 ML VIAL SQ SCH ×2 (00:43→08:17)
[2020-04-19 06:45] LABS: Glucose,Whole Blood 162 mg/dL (75-99)
[2020-04-19] MEDS: INSULIN ASPART (NovoLOG) 100 UNIT/ML VIAL SQ SCH ×4 (08:14→13:37)
[2020-04-19] MEDS: TAMSULOSIN 0.4 MG CAP.ER.24H PO SCH (08:17)
[2020-04-19] MEDS: PREGABALIN 100 MG CAP PO SCH (08:17)
[2020-04-19] MEDS: CHOLECALCIFEROL 1,000 UNIT TAB PO SCH (08:18)
[2020-04-19] MEDS: MAGNESIUM OXIDE 400 MG TAB PO SCH (08:18)
[2020-04-19] MEDS: CALCIUM CARBONATE 500 MG CHEWABLE PO SCH (08:18)
[2020-04-19] MEDS: FUROSEMIDE 20 MG TAB PO SCH (08:18)
[2020-04-19 09:59] LABS: African American GFR (CKD) 51.8 (60.0-200.0); Anion Gap 10.2 mmol/L (4.00-12.00); BUN/Creat Ratio 17.65 Ratio (12.00-20.00); Calcium 9.5 mg/dL (8.7-10.3); Carbon Dioxide 28.8 mmol/L (21.6-31.8); Non-African American GFR(CKD) 44.7 (60.0-200.0); Potassium 4.7 mmol/L (3.5-5.5)
[2020-04-19] MEDS: NON FORMULARY DRUG (Liraglutide [Victoza 3-Pak] 0.6 MG/0.1 ML Pen.Injctr) SQ SCH (11:46)
[2020-04-19 11:52] LABS: Glucose,Whole Blood 224 mg/dL (75-99)
[2020-04-19] MEDS: HYDROcodone/APAP 5-325MG 1 EACH TAB PO PRN (11:52)
[2020-04-19] MEDS: DAPTOmycin 500 MG in SODIUM CHLORIDE 0.9% 50 ML IVPB SCH (11:54)
--- NOTE | 2020-04-19 12:59 | PN ---
PROGRESS NOTE DATE OF SERVICE: 04/19/2020 REASON FOR FOLLOWUP: Left lower extremity cellulitis. INTERVAL HISTORY: The patient is currently afebrile. Patient is breathing comfortably. Overall pain and discomfort to left leg has slightly decreased. No chest pain, shortness of breath or cough. No abdominal pain or diarrhea. PHYSICAL EXAMINATION: Blood pressure 138/79 with a pulse of 85, temperature 98.1. He is 97% on room air. General description is a middle-aged male lying in bed in no distress. RESPIRATORY SYSTEM: Unlabored breathing, clear to auscultation anteriorly. HEART: S1, S2. Regular rate and rhythm. ABDOMEN: Soft. No tenderness. Left leg swelling and redness has decreased. LABS: BUN of 30, creatinine 1.7. DIAGNOSTIC IMPRESSION AND PLAN: Patient with acute left lower extremity cellulitis. Did not do well with IV cefazolin, hence, he was switched to daptomycin. Plan will be to continue daptomycin for 10 days in outpatient setting along with Jeyson wrap to leg and close outpatient followup. MMODL / IJN: [id number] /
--- NOTE | 2020-04-19 13:59 | P.PN ---
Subjective Progress Note Date: 04/18/20 Principal diagnosis: Left diabetic foot cellulitis. Patient is a 55-year-old male with a known history of hypertension, diabetes type 2, hyperlipidemia, diabetic peripheral neuropathy, chronic pain, currently on pain pump, diabetic left lower extremity cellulitis previously presents to ER with complaints of left lower extremity redness and swelling and pain worsening for the past 2 weeks. Patient is states that he started having swelling and redness of the left leg at the end of March 2020 and was seen by his primary care physician. Patient was started on Keflex on last which he has been taking without much improvement. Patient presents to ER due to worsening symptoms. Otherwise denies any complaints of fever or chills. No nausea vomiting abdominal pain or diarrhea. No dysuria. No headache or dizziness or lightheadedness. No chest pain or shortness breath. Lab data showed WBC 11.4, hemoglobin 10.1 and platelets 298 BUN 37 and creatinine 1.81 Patient has been afebrile. 04/16/2020 Patient is currently resting in the bed comfortably. Still complains of left lower extremity pain. Redness and swelling is improving. Antibiotics in the form of cefazolin. ID is on board. Lab data showed BUN 39 and creatinine 2.0, 9 WBC 9.4 and hemoglobin 9.5 Afebrile. No nausea vomiting abdominal pain or diarrhea. No dysuria or hematu cherelle. 04/17/2020 Patient is currently resting in the bed comfortable. No complaints of chest pain or shortness breath. Continued on antibiotics at home cefazolin. Y ID is on board. Left lower knee swelling and redness is much improved. Lab data showed BUN 33 and creatinine 2.0 globin 9.8. CRP 3.6 Blood sugars elevated this afternoon. Currently on insulin sliding scale and titrate dose. Patient is afebrile. Leg pain is better. 04/18/2020 Patient is awake alert oriented 3. Left lower exudate the swelling and redness and pain is much improved. Antibiotics changed to daptomycin yesterday without much improvement from cefazolin. Patient has been afebrile. Blood pressure is fairly controlled renal function is getting better with creatinine trending down. Anticipate discharge in 24 hours with more clinical improvement. Current medications reviewed. Objective - Vital Signs Vital signs: Vital Signs Temp 98.0 F 04/18/20 14:00 Pulse 94 04/18/20 14:00 Resp 18 04/18/20 14:00 BP 123/81 04/18/20 14:00 Pulse Ox 97 04/18/20 14:00 Intake & Output 04/17/20 04/18/20 04/18/20 18:59 06:59 18:59 Intake Total 1380 356 Balance 1380 356 Intake: Oral 1380 356 Other: # Voids 3 2 - Exam PHYSICAL EXAMINATION: Patient is lying in the bed comfortably, no acute distress, awake alert and oriented.. HEENT: Normocephalic. Neck is supple. Pupils reactive. Nostrils clear. Oral cavity is moist. Ears reveal no drainage. Neck reveals no JVD, carotid bruits, or thyromegaly. CHEST EXAMINATION: Trachea is central. Symmetrical expansion. Lung rivera clear to auscultation and percussion. CARDIAC: Normal S1, S2 with no gallops. No murmurs ABDOMEN: Soft. Bowel sounds normal. No organomegaly. No abdominal bruits. Extremities: Left leg swelling, redness and tenderness extending up to knee. No evidence of purulent drainage noted.. No clubbing or cyanosis Neurologically awake, alert, oriented x3 with well-coordinated movements. No fo carol deficits noted Skin: No rash or skin lesions. Psychiatric: Coperative. Nonsuicidal Musculoskeletal: No joint swelling or deformity. Normal range of motion. - Labs CBC & Chem 7: 04/18/20 06:52 04/19/20 06:15 Labs: Abnormal Lab Results - Last 24 Hours (Table) 04/17/20 04/17/20 04/18/20 Range/Units 16:31 20:44 06:52 RBC (4.30-5.90) m/uL Hgb (13.0-17.5) gm/dL Hct (39.0-53.0) % Chloride 93 L (96-109) mmol/L Anion Gap 12.50 H (4.00-12.00) mmol/L BUN 28.0 H (9.0-27.0) mg/dL Creatinine 1.9 H (0.6-1.5) mg/dL Est GFR (CKD-EPI)AfAm 45.3 L (60.0-200.0) Est GFR (CKD-EPI)NonAf 39.1 L (60.0-200.0) Glucose 222 H (70-110) mg/dL POC Glucose (mg/dL) 181 H 269 H (75-99) mg/dL C-Reactive Protein 2.6 H (0.0-0.8) mg/dL 04/18/20 04/18/20 04/18/20 Range/Units 06:52 07:14 11:36 RBC 3.47 L (4.30-5.90) m/uL Hgb 9.5 L (13.0-17.5) gm/dL Hct 29.7 L (39.0-53.0) % Chloride (96-109) mmol/L Anion Gap (4.00-12.00) mmol/L BUN (9.0-27.0) mg/dL Creatinine (0.6-1.5) mg/dL Est GFR (CKD-EPI)AfAm (60.0-200.0) Est GFR (CKD-EPI)NonAf (60.0-200.0) Glucose (70-110) mg/dL POC Glucose (mg/dL) 220 H 246 H (75-99) mg/dL C-Reactive Protein (0.0-0.8) mg/dL Microbiology - Last 24 Hours (Table) 04/14/20 23:30 Blood Culture - Preliminary Blood No Growth after 72 hours 04/14/20 21:48 Blood Culture - Preliminary Blood No Growth after 72 hours Assessment and Plan Assessment: Left lower extremity diabetic foot cellulitis. Failed outpatient therapy History of left lower extremity cellulitis Acute on chronic renal disease stage III Hypertension Diabetes type 2 insulin-dependent Chronic pain Diabetic peripheral neuropathy Currently on pain pump Charcot foot Marijuana use DVT prophylaxis with heparin subcu Plan: Patient will be continued on antibiotics of cefazolin---> Dapto. Follow-up culture reports. Continue with insulin dose and Metformin is on hold. Monitor blood sugar closely. Follow-up renal function and further recommendations based on clinical course. ID service will be consulted. Time with Patient: Greater than 30
[2020-04-19 14:52] VITALS: BP 155/93; PULSE 84; RESP 16; TEMP 99.2
[2020-04-20] MEDS ORDERED: CHOLECALCIFEROL 25 MCG (1000 IU) TABLET PO SCH (09:00)
== END 2020-04-19 15:40 | disposition home health service (06) | DRG 638 ==
LOC: EC 19:03 → 1SOBS 23:11 → 5NMEDONC 04-15 02:26 → OBSVTOIN 04-16 09:24
PROVIDERS: ADMIT Internal Medicine; ATTEND Internal Medicine
PROC: 05HF33Z Insertion of Infusion Device into Left Cephalic Vein, Percutaneous Approach (ICD-10-PCS; principal; 2020-04-18 19:05)
DX: E11.628 Type 2 diabetes mellitus with other skin complications (principal); L03.116 Cellulitis of left lower limb; A52.16 Charcot's arthropathy (tabetic); B95.5 Unspecified streptococcus as the cause of diseases classified elsewhere; Z79.4 Long term (current) use of insulin; E11.22 Type 2 diabetes mellitus with diabetic chronic kidney disease; E11.42 Type 2 diabetes mellitus with diabetic polyneuropathy; E11.610 Type 2 diabetes mellitus with diabetic neuropathic arthropathy; E78.5 Hyperlipidemia, unspecified; G89.29 Other chronic pain; I12.9 Hypertensive chronic kidney disease with stage 1 through stage 4 chronic kidney disease, or unspecified chronic kidney disease; J45.909 Unspecified asthma, uncomplicated; N18.30 Chronic kidney disease, stage 3 unspecified; Z79.899 Other long term (current) drug therapy; Z87.891 Personal history of nicotine dependence; Z90.89 Acquired absence of other organs; Z98.1 Arthrodesis status
CPT/HCPCS: 36410; 36415; 76937; 80048; 80053; 80202; 83605; 85025; 86140; 87040; 96365; 96366; 96367; 96375; 99285

== ENCOUNTER 2021-02-13 08:48 | Emergency (ER) | payer MEDICARE, OTHER ==
[2021-02-13 09:57] VITALS: BP 150/99; PULSE 86; RESP 18; TEMP 97.5
== END 2021-02-13 11:30 | disposition left against medical advice (07) ==
LOC: EC 08:48
DX: Z53.21 Procedure and treatment not carried out due to patient leaving prior to being seen by health care provider (principal)
CPT/HCPCS: 87635; 99499

== ENCOUNTER → 2021-04-15 | Outpatient (CLI) | payer MEDICARE, OTHER ==
[2021-04-15 18:38] LABS: Basophils # (A) 0.07 X 10*3/uL (0.00-0.10); Basophils % (A) 0.8 %; Eosinophils # (A) 0.52 X 10*3/uL (0.04-0.35); Eosinophils % (A) 6.3 %; HCT 33.3 % (39.6-50.0); HGB 10.2 g/dL (13.0-17.0); Lymphocytes # (A) 2.02 X 10*3/uL (0.90-5.00); Lymphocytes % (A) 24.4 %; MCH 27.4 pg (27.0-32.0); MCHC 30.6 g/dL (32.0-37.0); MCV 89.5 fL (80.0-97.0); Mean Platelet Volume 10.7 fL (9.5-12.2); Monocytes # (A) 0.69 X 10*3/uL (0.20-1.00); Monocytes % (A) 8.3 %; Neutrophils # (A) 4.94 X 10*3/uL (1.80-7.70); Neutrophils % (A) 59.8 %; Platelet Count 225 X 10*3/uL (140-440); RBC 3.72 X 10*6/uL (4.40-5.60); RDW 14.1 % (11.5-14.5); WBC 8.27 X 10*3/uL (4.50-10.00)
[2021-04-15 23:44] LABS: ALT 20 U/L (10-49); AST 15 U/L (14-35); African American GFR (CKD) 42.6 (60.0-200.0); Albumin/Globulin Ratio 1.38 (1.60-3.17); Alkaline Phosphatase 80 U/L (41-126); BUN/Creat Ratio 15.23 Ratio (12.00-20.00); Blood Urea Nitrogen 30.3 mg/dL (9.0-27.0); Calcium 9.9 mg/dL (8.7-10.3); Carbon Dioxide 27.9 mmol/L (20.0-27.5); Chloride 93 mmol/L (96-109); Globulin 2.9 g/dL (1.6-3.3); Glucose 115 mg/dL (70-110); LDL Cholesterol,Calculated 41.8 mg/dL (0.0-131.0); Non-African American GFR(CKD) 36.7 (60.0-200.0); Sodium 135 mmol/L (135-145); Total Protein 6.9 g/dL (6.2-8.2); VLDL Calculation 13.16 mg/dL (5.00-40.00)
== END | disposition home or self-care (01) ==
LOC: LABWHC1 09:28
PROVIDERS: ATTEND Family Medicine
DX: E11.40 Type 2 diabetes mellitus with diabetic neuropathy, unspecified (principal); E78.2 Mixed hyperlipidemia; I10 Essential (primary) hypertension
CPT/HCPCS: 80061; 80053; 85025; 36415; G0103

== ENCOUNTER 2022-04-03 07:21 | Day surgery (SDC) | payer MEDICARE, OTHER ==
[2022-03-29 10:47] VITALS: BMI 40.4
[~2022-04-03 07:21] MED LIST changes: -DEXAMETHASONE SOD PHOSPHATE 10 MG/ML 1 ML VIAL IV ONE; -HYDROmorphone 1 MG/ML 1 ML SYRINGE IVP PRN; +LACTATED RINGERS 1,000 ML IV SCH; -MIDAZOLAM 2 MG/2 ML VIAL IV PRN; -ONDANSETRON 4 MG/2 ML VIAL IVP ONE; -SCOPOLAMINE 1.5MG/72HR PATCH TRANSDERM ONE; -ceFAZolin 3 GM in SODIUM CHLORIDE 0.9% 100 ML IVPB ONE
[2022-04-03 08:06] VITALS: RESP 16; TEMP 97.5
[2022-04-03 08:06] LABS: Glucose,Whole Blood 80 mg/dL (70-110)
[2022-04-03] MEDS ORDERED: LIDOCAINE 2% INJ 20 MG/ML (2 ML VIAL) ONE (08:08)
[2022-04-03] MEDS ORDERED: PROPOFOL 10 MG/ML 20 ML VIAL IV ONE (08:08)
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
--- NOTE | 2022-04-03 08:50 | P.PCN ---
Date of Procedure: 04/03/22 Procedure(s) Performed: PREOPERATIVE DIAGNOSIS: Colon cancer screening, family history of colon cancer POSTOPERATIVE DIAGNOSIS: Sigmoid colon polypoid mass, poor prep PROCEDURE: Colonoscopy with snare polypectomy and spot injection ANESTHESIA: MAC SURGEON: Kingsley Ramírez M.D. SPECIMENS: Sigmoid colon polyp ENDOSCOPIC PROCEDURE: The patient was placed on the endoscopy table in the left decubitus position. The Olympus colonoscope was inserted into the anus and passed under direct visualization to the base of the cecum. The appendiceal orifice was visualized. From that point the scope was slowly withdrawn inspecting all surfaces carefully. There were no neoplastic inflammatory or polypoid lesions throughout the cecum, ascending, transverse, and descending colon. In the sigmoid colon at 40 cm there was a polypoid mass that measured at least 2 cm in size. This was removed in several pieces using the snare with cautery technique. This was present on a wide-based stalk. There may have been a small amount of residual polypoid tissue at the base of the polypoid stalk. Spot injection took place just distal to the lesion. The remainder of the sigmoid and rectum otherwise appeared normal. There was no visible diverticulosis. The patient's prep was quite poor with residual solid and liq uid stool seen throughout the colon limiting our evaluation. Digital rectal examination was normal. The patient was taken to the recovery room in stable condition per anesthesia guidelines. RECOMMENDATIONS: Await biopsy results. Follow-up office 1 week. Patient will require short-term follow-up colonoscopy.
[2022-04-03 09:07] LABS: Glucose,Whole Blood 78 mg/dL (70-110)
[2022-04-03 09:12] VITALS: BP 121/81; PULSE 83
== END 2022-04-03 09:57 | disposition home or self-care (01) ==
LOC: ORWHC2ENDO 07:21
PROVIDERS: ATTEND Surgery
DX: Z12.11 Encounter for screening for malignant neoplasm of colon (principal); D12.5 Benign neoplasm of sigmoid colon; J45.909 Unspecified asthma, uncomplicated; E11.9 Type 2 diabetes mellitus without complications; E78.5 Hyperlipidemia, unspecified; I10 Essential (primary) hypertension; Z80.0 Family history of malignant neoplasm of digestive organs; Z90.89 Acquired absence of other organs; Z87.891 Personal history of nicotine dependence; Z80.8 Family history of malignant neoplasm of other organs or systems; Z79.84 Long term (current) use of oral hypoglycemic drugs
CPT/HCPCS: 88305; 45385; 45381; J2704; J2001; 44404

== ENCOUNTER → 2022-04-12 | Outpatient (CLI) | payer MEDICARE, OTHER ==
[2022-04-12 15:24] LABS: HCT 31.1 % (39.6-50.0); HGB 9.6 g/dL (13.0-17.0); MCH 25.2 pg (27.0-32.0); MCHC 30.9 g/dL (32.0-37.0); MCV 81.6 fL (80.0-97.0); Mean Platelet Volume 10.6 fL (9.5-12.2); NRBC Per 100 WBC 0 /100 WBCS (0.0-0.0); Platelet Count 210 X 10*3/uL (140-440); RBC 3.81 X 10*6/uL (4.40-5.60); RDW 14.9 % (11.5-14.5); WBC 10.27 X 10*3/uL (4.50-10.00)
[2022-04-12 16:52] LABS: Ferritin 21.5 ng/mL (22.0-322.0)
[2022-04-12 16:53] LABS: % Iron Saturation 8.68 (15.00-50.00); African American GFR (CKD) 33.9 (60.0-200.0); Albumin 3.7 g/dL (3.8-4.9); Albumin/Globulin Ratio 1.44 (1.60-3.17); Anion Gap 13.3 mmol/L (10.00-18.00); BUN/Creat Ratio 15.69 Ratio (12.00-20.00); Blood Urea Nitrogen 37.5 mg/dL (9.0-27.0); Carbon Dioxide 25.7 mmol/L (20.0-27.5); Globulin 2.6 g/dL (1.6-3.3); Non-African American GFR(CKD) 29.2 (60.0-200.0); Phosphorus 3.8 mg/dL (2.4-5.1); Potassium 4.4 mmol/L (3.5-5.5); Total Bilirubin 0.3 mg/dL (0.30-1.20); Total Protein 6.3 g/dL (6.2-8.2); Uric Acid 7.2 mg/dL (3.7-8.7)
[2022-04-12 17:20] LABS: Appearance,Urine Clear (Clear); Bilirubin,Urine Negative (Negative); Blood,Urine Negative (Negative); Color,Urine Yellow (Yellow); Ketones,Urine Trace mg/dL (Negative); Nitrite,Urine Negative (Negative); PH, Urine 5.5 (5.0-8.0); Specific Gravity,Urine 1.013 (1.001-1.030); Urobilinogen,Urine 0.2 (0.2,1.0)
[2022-04-12 19:57] LABS: Microalbumin Creatinine Ratio <30 mg/g Creat (0-30)
== END | disposition home or self-care (01) ==
LOC: LABWHC1 09:22
PROVIDERS: ATTEND Nurse Practitioner Family
DX: N25.81 Secondary hyperparathyroidism of renal origin (principal); N39.0 Urinary tract infection, site not specified; N18.30 Chronic kidney disease, stage 3 unspecified; E55.9 Vitamin D deficiency, unspecified; M10.9 Gout, unspecified; D63.1 Anemia in chronic kidney disease
CPT/HCPCS: 36415; 80053; 81003; 82043; 82306; 82570; 82728; 83540; 83550; 83735; 83970; 84100; 84550; 85027

== ENCOUNTER → 2022-04-23 | Outpatient (CLI) | payer MEDICARE, OTHER ==
[2022-04-23 15:10] LABS: African American GFR (CKD) 36.2 (60.0-200.0); Albumin 3.6 g/dL (3.8-4.9); Albumin/Globulin Ratio 1.3 (1.60-3.17); Anion Gap 12.2 mmol/L (10.00-18.00); BUN/Creat Ratio 14.25 Ratio (12.00-20.00); Blood Urea Nitrogen 32.2 mg/dL (9.0-27.0); Calcium 9.2 mg/dL (8.7-10.3); Carbon Dioxide 23.4 mmol/L (20.0-27.5); Globulin 2.8 g/dL (1.6-3.3); Non-African American GFR(CKD) 31.3 (60.0-200.0); Potassium 4.7 mmol/L (3.5-5.5); Total Bilirubin 0.3 mg/dL (0.30-1.20); Total Protein 6.4 g/dL (6.2-8.2)
== END | disposition home or self-care (01) ==
LOC: LABWHC1 10:11
PROVIDERS: ATTEND Family Medicine
DX: N18.32 Chronic kidney disease, stage 3b (principal)
CPT/HCPCS: 36415; 80053

== ENCOUNTER → 2022-05-01 | Outpatient (CLI) | payer MEDICARE, OTHER ==
--- NOTE | 2022-05-01 11:52 | US ---
EXAMINATION TYPE: US kidneys/renal and bladder DATE OF EXAM: 05/01/2022 COMPARISON: US CLINICAL HISTORY: N18.32 CHRONIC KIDNEY DISEASE, STAGE 3B. EXAM MEASUREMENTS: Right Kidney: 10.9 x 5.1 x 4.9cm Left Kidney: 10.3 x 4.5 x 4.5cm Right Kidney: No hydronephrosis or masses seen Left Kidney: No hydronephrosis or masses seen Bladder: wnl Bilateral Jets seen: Yes Accessory spleen again noted. There is no evidence for hydronephrosis at this point in time. No nephrolithiasis is seen. No susan s are identified. The urinary bladder is anechoic. Bilateral ureteral jets are seen. IMPRESSION: No evidence of obstructive uropathy.
== END | disposition home or self-care (01) ==
LOC: RADUSWWP 10:21
PROVIDERS: ATTEND Internal Medicine
DX: N18.32 Chronic kidney disease, stage 3b (principal)
CPT/HCPCS: 76770

== ENCOUNTER 2022-08-14 07:23 | Day surgery (SDC) | payer MEDICARE, OTHER ==
[2022-08-13 11:36] VITALS: BMI 40.0
[~2022-08-14 07:23] MED LIST changes: +LIDOCAINE 1% (10MG/ML) FOR IV START INTRADERMA PRN
[2022-08-14 08:15] VITALS: TEMP 98.7
[2022-08-14] MEDS ORDERED: PROPOFOL 10 MG/ML 20 ML VIAL IV ONE (08:15)
[2022-08-14] MEDS ORDERED: LIDOCAINE 2% INJ 20 MG/ML (2 ML VIAL) ONE (08:15)
--- NOTE | 2022-08-14 08:18 | P.GSHP ---
History of Present Illness H&P Date: 08/14/22 Chief Complaint: Colon polyp 57-year-old male known to our service. Underwent colonoscopy earlier this year and was found have a large sigmoid polyp. This was a tubulovillous adenoma without atypia. The patient's prep was poor and short-term follow-up was advised. He is doing well today. Past Medical History Past Medical History: Asthma, Diabetes Mellitus, Eye Disorder, Hearing Disorder / Deafness, Hyperlipidemia, Hypertension, Neurologic Disorder, Renal Disease Additional Past Medical History / Comment(s): Current blisters on legs, going to wound care, weraing dressings. Hard of hearing. Cataracts. Charcot feet(nerve damage in feet), neuropathy, balance issues. Cellulitis left lower leg. Chronic pain to back, neck and shoulders with Dilaudid Pain Pump. Transient renal insufficiency, most recently kidney function has improved. Low iron. History of Any Multi-Drug Resistant Organisms: None Reported Past Surgical History: Ear Surgery, Orthopedic Surgery, Tonsillectomy Additional Past Surgical History / Comment(s): 7 bilateral ear surgeries, bilateral achilles repair, right knee surgery, anesthesia for repair of left leg saw injury, bilateral carpal tunnel surgery, left mid foot fusion, surgery for left foot deformity, PICC, pain pump placed, abelardo in left toe to ankle, colonoscopy. Reports anesthesia 22 times, cannot remember all the surgeries. Past Anesthesia/Blood Transfusion Reactions: Motion Sickness Past Psychological History: Anxiety Additional Psychological History / Comment(s): A lot of anxietty with procedures. Smoking Status: Former smoker Past Alcohol Use History: Heavy Additional Past Alcohol Use History / Comment(s): Quit smoking in 2001. "Dip tobacco sometimes." Used to drink a lot, quit 1 - 1/2 yrs ago. Past Drug Use History: Marijuana Additional Drug Use History / Comment(s): Hx marijuana use on occassion, "none in quite a while". - Past Family History Father Family Medical History: Cancer Additional Family Medical History / Comment(s): Colon vs prostate cancer. Mother Family Medical History: Cancer Additional Family Medical History / Comment(s): Brain cancer. Medications and Allergies Home Medications Medication Instructions Recorded Confirmed Type Glimepiride [Amaryl] 4 mg PO DAILY 06/07/16 08/13/22 History Atorvastatin [Lipitor] 40 mg PO DAILY 10/08/16 08/13/22 History Albuterol Sulfate [Ventolin HFA] 2 puff INHALATION Q6H PRN 04/14/20 08/13/22 History Calcium Carbonate 500 mg PO BID 04/14/20 08/13/22 History Cholecalciferol [Vitamin D3 (25 2,000 unit PO DAILY 04/14/20 08/13/22 History Mcg = 1000 Iu)] Dilaudid Pain Pump 1 dose INTRATHECA CONTINUOUS 04/14/20 08/13/22 History HYDROcodone/APAP 5-325MG [[place] 1 tab PO BID PRN 04/14/20 08/13/22 History 5-325] Magnesium Oxide 500 mg PO BID 04/14/20 08/13/22 History Tamsulosin HCl [Flomax] 0.4 mg PO DAILY 04/14/20 08/13/22 History Dulaglutide [Trulicity] 1.5 mg SQ WE 03/29/22 08/13/22 History Insulin Glargine,Hum.rec.anlog 20 unit SQ BID 03/29/22 08/13/22 History [Basaglar Kwikpen U-100] Benazepril HCl 10 mg PO HS 07/04/22 08/13/22 History Dapagliflozin Propanediol [Farxiga] 5 mg PO DAILY 07/04/22 08/13/22 History Ferrous Sulfate [Iron] 325 mg PO DAILY 07/04/22 08/13/22 History Pregabalin [Lyrica] 100 mg PO BID 08/13/22 08/13/22 History SILVER sulfADIAZINE CREAM 1 applic TOPICAL DIRECTED 08/13/22 08/13/22 History [Silvadene Cream] Allergies Allergy/AdvReac Type Severity Reaction Status Date / Time No Known Allergies Allergy Verified 08/14/22 08:00 Surgical - Exam Vital Signs Temp Pulse Resp BP Pulse Ox 98.7 F 91 18 138/70 94 L 08/14/22 08:03 08/14/22 08:03 08/14/22 08:03 08/14/22 08:03 08/14/22 08:03 Physical exam: General: Well-developed, well-nourished HEENT: Normocephalic, sclerae nonicteric Abdomen: Nontender, nondistended Extremities: No edema Neuro: Alert and oriented Assessment and Plan (1) Colon polyp Narrative/Plan: 57-year-old male with colon polyp. Will proceed with colonoscopy. Current Visit: Yes Status: Acute Code(s): K63.5 - POLYP OF COLON SNOMED Code(s): 22067644
[2022-08-14 08:20] LABS: Glucose,Whole Blood 83 mg/dL (70-110)
--- NOTE | 2022-08-14 08:34 | P.PCN ---
Date of Procedure: 08/14/22 Procedure(s) Performed: PREOPERATIVE DIAGNOSIS: History of polyps POSTOPERATIVE DIAGNOSIS: Transverse colon polyp, sigmoid colon polyp, diverticulosis PROCEDURE: Colonoscopy with snare polypectomy ANESTHESIA: MAC SURGEON: Kingsley Ramírez M.D. SPECIMENS: Polyps ENDOSCOPIC PROCEDURE: The patient was placed on the endoscopy table in the left decubitus position. The Olympus colonoscope was inserted into the anus and passed under direct visualization to the base of the cecum. The appendiceal orifice was visualized. From that point the scope was slowly withdrawn inspecting all surfaces carefully. There were no neoplastic inflammatory or polypoid lesions throughout the cecum and ascending colon. In the transverse colon a small polyp was seen and removed using the snare with cautery technique. In the sigmoid colon at the site of previous tattooing was a residual polyp measuring 8 mm in size. This was removed using the snare with cautery technique. The remainder of the sigmoid and rectum appeared normal. The patient had scattered diverticulosis. Patient's prep was again somewhat suboptimal however significantly improved from last time. Digital rectal examination was normal. The patient was taken to the recovery room in stable condition per anesthesia guidelines. RECOMMENDATIONS: Await biopsy results. Advise repeat colonoscopy 2-3 years.
[2022-08-14 08:40] VITALS: RESP 16
[2022-08-14 08:47] LABS: Glucose,Whole Blood 81 mg/dL (70-110)
[2022-08-14 09:19] VITALS: BP 117/80; PULSE 80
== END 2022-08-14 09:37 | disposition home or self-care (01) ==
LOC: ORWHC2ENDO 07:23
PROVIDERS: ATTEND Surgery
DX: Z12.11 Encounter for screening for malignant neoplasm of colon (principal); K63.5 Polyp of colon; K57.30 Diverticulosis of large intestine without perforation or abscess without bleeding; J45.909 Unspecified asthma, uncomplicated; H91.90 Unspecified hearing loss, unspecified ear; E78.5 Hyperlipidemia, unspecified; I10 Essential (primary) hypertension; E11.36 Type 2 diabetes mellitus with diabetic cataract; E11.610 Type 2 diabetes mellitus with diabetic neuropathic arthropathy; F41.9 Anxiety disorder, unspecified; F10.90 Alcohol use, unspecified, uncomplicated; G89.29 Other chronic pain; Z90.89 Acquired absence of other organs; Z98.890 Other specified postprocedural states; Z87.891 Personal history of nicotine dependence; Z79.84 Long term (current) use of oral hypoglycemic drugs; Z79.51 Long term (current) use of inhaled steroids; Z79.899 Other long term (current) drug therapy; Z79.4 Long term (current) use of insulin
CPT/HCPCS: 88305; 45385; J2704; J2001

== ENCOUNTER → 2022-09-17 | Outpatient (CLI) | payer MEDICARE ==
[2022-09-17 17:34] LABS: Basophils # (A) 0.09 X 10*3/uL (0.00-0.10); Basophils % (A) 1.1 %; Eosinophils # (A) 0.61 X 10*3/uL (0.04-0.35); Eosinophils % (A) 7.4 %; HCT 37.4 % (39.6-50.0); HGB 11.6 d/dL (12.0-15.0); Lymphocytes # (A) 1.76 X 10*3/uL (0.90-5.00); Lymphocytes % (A) 21.5 %; MCV 90.1 FL (80.0-97.0); Mean Platelet Volume 11.2 FL (9.5-12.2); Monocytes % (A) 8.5 %; NRBC Per 100 WBC 0 X 10*3/uL (0.00-0.01); Neutrophils # (A) 5.02 X 10*3/uL (1.80-7.70); Neutrophils % (A) 61.3 %; Platelet Count 173 X 10*3/uL (140-440); RBC 4.15 X 10*6/uL (4.40-5.60); RDW 15.9 % (11.5-14.5)
[2022-09-18 18:30] LABS: % Iron Saturation 22.82 (15.00-50.00); ALT 23 U/L (10-49); AST 18 U/L (14-35); Albumin 3.9 d/dL (3.8-4.9); Alkaline Phosphatase 78 U/L (41-126); BUN/Creat Ratio 15.19 Ratio (12.00-20.00); Blood Urea Nitrogen 31.9 mg/dL (9.0-27.0); Calcium 9.8 mg/dL (8.7-10.3); Carbon Dioxide 23.7 mmol/L (21.6-31.8); Chloride 102 mmol/L (96-109); Globulin 2.6 d/dL (1.6-3.3); Glucose 90 mg/dL (70-110); Iron 55 UG/DL (65-175); Phosphorus 4.3 mg/dL (2.4-5.1); Potassium 4.9 mmol/L (3.5-5.5); Sodium 142 mmol/L (135-145); Total Bilirubin 0.3 mg/dL (0.3-1.2); Total Iron Binding Capacity 241 UG/DL (228-460); Total Protein 6.5 d/dL (6.2-8.2); Uric Acid 5.9 mg/dL (3.7-8.7)
== END | disposition home or self-care (01) ==
LOC: LABWHC1 08:35
PROVIDERS: ATTEND Internal Medicine
DX: E55.9 Vitamin D deficiency, unspecified (principal); D63.1 Anemia in chronic kidney disease; N18.32 Chronic kidney disease, stage 3b; M10.9 Gout, unspecified; N25.81 Secondary hyperparathyroidism of renal origin
CPT/HCPCS: 36415; 80053; 82306; 82728; 83540; 83550; 83735; 83970; 84100; 84550; 85025

== ENCOUNTER → 2022-12-17 | Outpatient (CLI) | payer MEDICARE, OTHER ==
[2022-12-17 21:21] LABS: HCT 34.8 % (39.6-50.0); HGB 11.4 d/dL (13.0-17.0); MCH 29.2 pg (27.0-32.0); MCHC 32.8 d/dL (32.0-37.0); MCV 89.2 FL (80.0-97.0); Mean Platelet Volume 10.9 FL (9.5-12.2); NRBC Per 100 WBC 0 X 10*3/uL (0.00-0.01); Platelet Count 194 X 10*3/uL (140-440); RDW 13.8 % (11.5-14.5); WBC 10.77 X 10*3/uL (4.50-10.00)
[2022-12-17 22:32] LABS: % Iron Saturation 18.99 (15.00-50.00); ALT 18 U/L (10-49); AST 21 U/L (14-35); Albumin/Globulin Ratio 1.67 Ratio (1.60-3.17); Alkaline Phosphatase 81 U/L (41-126); BUN/Creat Ratio 15.52 Ratio (12.00-20.00); Blood Urea Nitrogen 32.6 mg/dL (9.0-27.0); Calcium 9.8 mg/dL (8.7-10.3); Carbon Dioxide 28.1 mmol/L (21.6-31.8); Chloride 100 mmol/L (96-109); Globulin 2.4 d/dL (1.6-3.3); Glucose 163 mg/dL (70-110); Iron 45 UG/DL (65-175); Magnesium 2.3 mg/dL (1.5-2.4); Phosphorus 3.6 mg/dL (2.4-5.1); Potassium 5.1 mmol/L (3.5-5.5); Sodium 137 mmol/L (135-145); Total Bilirubin 0.3 mg/dL (0.3-1.2); Total Iron Binding Capacity 237 UG/DL (228-460); Total Protein 6.4 d/dL (6.2-8.2); Uric Acid 5.7 mg/dL (3.7-8.7)
[2022-12-17 23:45] LABS: Appearance,Urine Clear (Clear); Bilirubin,Urine Negative (Negative); Blood,Urine Negative (Negative); Color,Urine Yellow (Yellow); Ketones,Urine Negative (Negative); Nitrite,Urine Negative (Negative); Specific Gravity,Urine 1.019 (1.001-1.030); Urobilinogen,Urine 0.2 E.U./DL
[2022-12-18 01:34] LABS: Microalbumin Creatinine Ratio <12 mg/g Cr (0-30); Urine Creatinine 97.7 mg/dL (39.0-259.0)
== END | disposition home or self-care (01) ==
LOC: LABWHC1 12:02
PROVIDERS: ATTEND Internal Medicine
DX: N18.32 Chronic kidney disease, stage 3b (principal); D63.1 Anemia in chronic kidney disease; N39.0 Urinary tract infection, site not specified; E55.9 Vitamin D deficiency, unspecified; M10.9 Gout, unspecified; R80.9 Proteinuria, unspecified
CPT/HCPCS: 36415; 80053; 81003; 82043; 82306; 82570; 82728; 83540; 83550; 83735; 83970; 84100; 84550; 85027

== ENCOUNTER → 2023-01-21 | Outpatient (CLI) | payer MEDICARE, OTHER ==
[2023-01-21 16:34] LABS: BUN/Creat Ratio 12.35 Ratio (12.00-20.00); Blood Urea Nitrogen 24.7 mg/dL (9.0-27.0); Chloride 98 mmol/L (96-109); Chol/HDL Ratio 2.07 Ratio; Glucose 130 mg/dL (70-110); Potassium 4.8 mmol/L (3.5-5.5); Sodium 140 mmol/L (135-145); VLDL Calculation 10.66 mg/dL (5.00-40.00)
[2023-01-21 16:35] LABS: ALT 26 U/L (10-49); AST 21 U/L (14-35); Albumin 3.8 d/dL (3.8-4.9); Albumin/Globulin Ratio 1.46 Ratio (1.60-3.17); Alkaline Phosphatase 71 U/L (41-126); Calcium 10.2 mg/dL (8.7-10.3); Carbon Dioxide 29.3 mmol/L (21.6-31.8); Globulin 2.6 d/dL (1.6-3.3); LDL Cholesterol,Calculated 41.4 mg/dL (0.0-131.0); Total Bilirubin 0.4 mg/dL (0.3-1.2); Total Protein 6.4 d/dL (6.2-8.2)
[2023-01-21 17:01] LABS: Basophils # (A) 0.07 X 10*3/uL (0.00-0.10); Basophils % (A) 0.6 %; Eosinophils # (A) 0.38 X 10*3/uL (0.04-0.35); Eosinophils % (A) 3.4 %; HCT 37.9 % (39.6-50.0); HGB 12.2 d/dL (13.0-17.0); Lymphocytes # (A) 1.42 X 10*3/uL (0.90-5.00); Lymphocytes % (A) 12.6 %; MCH 28.5 pg (27.0-32.0); MCHC 32.2 d/dL (32.0-37.0); MCV 88.6 FL (80.0-97.0); Mean Platelet Volume 10.6 FL (9.5-12.2); Monocytes # (A) 0.88 X 10*3/uL (0.20-1.00); Monocytes % (A) 7.8 %; NRBC Per 100 WBC 0 X 10*3/uL (0.00-0.01); Neutrophils # (A) 8.49 X 10*3/uL (1.80-7.70); Neutrophils % (A) 75.1 %; Platelet Count 200 X 10*3/uL (140-440); RBC 4.28 X 10*6/uL (4.40-5.60); RDW 13.9 % (11.5-14.5)
== END | disposition home or self-care (01) ==
LOC: LABWHC1 09:57
PROVIDERS: ATTEND Family Medicine
DX: E11.21 Type 2 diabetes mellitus with diabetic nephropathy (principal); E78.2 Mixed hyperlipidemia
CPT/HCPCS: 36415; 80053; 80061; 83036; 85025

== ENCOUNTER → 2023-04-05 | Outpatient (CLI) | payer MEDICARE, OTHER ==
[2023-04-05 16:20] LABS: HCT 41.8 % (39.6-50.0); HGB 13.7 g/dL (13.0-17.0); MCH 27.9 pg (27.0-32.0); MCHC 32.8 g/dL (32.0-37.0); MCV 85.1 FL (80.0-97.0); Mean Platelet Volume 10.4 FL (9.5-12.2); NRBC Per 100 WBC 0 X 10*3/uL (0.00-0.01); Platelet Count 238 X 10*3/uL (140-440); RBC 4.91 X 10*6/uL (4.40-5.60); WBC 11.81 X 10*3/uL (4.50-10.00)
[2023-04-05 16:45] LABS: Appearance,Urine Clear (Clear); Bilirubin,Urine Negative (Negative); Blood,Urine Negative (Negative); Color,Urine Yellow (Yellow); Ketones,Urine Negative (Negative); Nitrite,Urine Negative (Negative); PH, Urine 6.5; Specific Gravity,Urine 1.025 (1.001-1.030); Urobilinogen,Urine 0.2 E.U./DL
[2023-04-05 17:04] LABS: % Iron Saturation 32.08 (15.00-50.00); ALT 29 U/L (10-49); AST 18 U/L (14-35); Albumin 4.1 g/dL (3.8-4.9); Albumin/Globulin Ratio 1.41 Ratio (1.60-3.17); Alkaline Phosphatase 96 U/L (41-126); BUN/Creat Ratio 12.67 Ratio (12.00-20.00); Blood Urea Nitrogen 26.6 mg/dL (9.0-27.0); Calcium 10.3 mg/dL (8.7-10.3); Carbon Dioxide 26.8 mmol/L (21.6-31.8); Chloride 97 mmol/L (96-109); Globulin 2.9 g/dL (1.6-3.3); Glucose 265 mg/dL (70-110); Iron 94 UG/DL (65-175); Phosphorus 4.3 mg/dL (2.4-5.1); Potassium 4.7 mmol/L (3.5-5.5); Sodium 137 mmol/L (135-145); Total Bilirubin 0.4 mg/dL (0.3-1.2); Total Iron Binding Capacity 293 UG/DL (228-460); Uric Acid 4.8 mg/dL (3.7-8.7)
[2023-04-05 20:45] LABS: Urine Creatinine 97.3 mg/dL (39.0-259.0)
== END | disposition home or self-care (01) ==
LOC: LABWHC1 09:25
PROVIDERS: ATTEND Internal Medicine
DX: N18.32 Chronic kidney disease, stage 3b (principal)
CPT/HCPCS: 36415; 80053; 81003; 82043; 82306; 82570; 82728; 83540; 83550; 83735; 83970; 84100; 84550; 85027

== ENCOUNTER → 2023-07-01 | Outpatient (CLI) | payer MEDICARE, OTHER ==
[2023-07-01 12:00] LABS: HCT 40.5 % (39.6-50.0); MCH 28.4 pg (27.0-32.0); MCHC 32.1 g/dL (32.0-37.0); MCV 88.4 FL (80.0-97.0); Mean Platelet Volume 10.4 FL (9.5-12.2); NRBC Per 100 WBC 0 X 10*3/uL (0.00-0.01); Platelet Count 184 X 10*3/uL (140-440); RBC 4.58 X 10*6/uL (4.40-5.60); WBC 9.59 X 10*3/uL (4.50-10.00)
[2023-07-01 12:30] LABS: % Iron Saturation 23.44 (15.00-50.00); ALT 20 U/L (10-49); AST 16 U/L (14-35); Albumin 3.9 g/dL (3.8-4.9); Albumin/Globulin Ratio 1.56 Ratio (1.60-3.17); Alkaline Phosphatase 89 U/L (41-126); BUN/Creat Ratio 12.61 Ratio (12.00-20.00); Blood Urea Nitrogen 22.7 mg/dL (9.0-27.0); Calcium 9.6 mg/dL (8.7-10.3); Carbon Dioxide 31.5 mmol/L (21.6-31.8); Chloride 99 mmol/L (96-109); Globulin 2.5 g/dL (1.6-3.3); Glucose 166 mg/dL (70-110); Iron 60 UG/DL (65-175); Magnesium 1.8 mg/dL (1.5-2.4); Phosphorus 3.6 mg/dL (2.4-5.1); Potassium 4.1 mmol/L (3.5-5.5); Sodium 140 mmol/L (135-145); Total Bilirubin 0.4 mg/dL (0.3-1.2); Total Iron Binding Capacity 256 UG/DL (228-460); Total Protein 6.4 g/dL (6.2-8.2); Uric Acid 4.6 mg/dL (3.7-8.7)
[2023-07-01 14:22] LABS: Free Kappa Lt Chain Qnt, Serum 4.11 mg/dL (0.33-1.94); Free Lambda Lt Chain Qnt, Seru 2.49 mg/dL (0.57-2.63)
[2023-07-01 16:28] LABS: Appearance,Urine Clear (Clear); Bilirubin,Urine Negative (Negative); Blood,Urine Negative (Negative); Color,Urine Yellow (Yellow); Ketones,Urine Negative (Negative); Nitrite,Urine Negative (Negative); PH, Urine 6.5; Specific Gravity,Urine 1.017 (1.001-1.030); Urobilinogen,Urine 0.2 E.U./DL
== END | disposition home or self-care (01) ==
LOC: LABWHC1 08:25
PROVIDERS: ATTEND Internal Medicine
DX: E55.9 Vitamin D deficiency, unspecified (principal); N39.0 Urinary tract infection, site not specified; N25.81 Secondary hyperparathyroidism of renal origin; M10.9 Gout, unspecified; N18.32 Chronic kidney disease, stage 3b; D63.1 Anemia in chronic kidney disease; R80.9 Proteinuria, unspecified
CPT/HCPCS: 36415; 80053; 81003; 82043; 82306; 82570; 82728; 83540; 83550; 83735; 83883; 83970; 84100; 84166; 84550; 85027; 86334

== ENCOUNTER 2024-03-26 13:15 | Emergency (ER) | payer MEDICARE ==
[2024-03-26 13:25] VITALS: RESP 18; TEMP 98.2
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
[2024-03-26 14:36] VITALS: BP 123/83; PULSE 82
== END 2024-03-26 14:36 | disposition home or self-care (01) ==
LOC: EC 13:15
DX: T82.594A Other mechanical complication of infusion catheter, initial encounter (principal)
CPT/HCPCS: 99283

== ENCOUNTER → 2024-09-18 | Outpatient (CLI) | payer MEDICARE, OTHER ==
--- NOTE | 2024-09-18 10:47 | US ---
EXAMINATION TYPE: US kidneys/renal and bladder DATE OF EXAM: 09/18/2024 COMPARISON: 05/01/22 CLINICAL INDICATION: Male, 59 years old with history of E87.5 HYPERKALEMIA; TECHNIQUE: Grayscale imaging of the bilateral kidneys and urinary bladder: FINDINGS: EXAM MEASUREMENTS: Right Kidney: 10.0 x 5.7 x 5.4 cm Left Kidney: 9.0 x 3.9 x 4.9 cm Right Kidney: No hydronephrosis or masses seen Left Kidney: No hydronephrosis or masses seen Bladder: wnl Bilateral Jets seen: Yes There is no evidence for hydronephrosis at this point in time. No nephrolithiasis is seen. No susan s are identified. The urinary bladder is anechoic. IMPRESSION: No evidence for obstructive uropathy or renal calculus. [facility], , 09/18/2024 10:45 AM
== END | disposition home or self-care (01) ==
LOC: RADUSWWP 10:02
PROVIDERS: ATTEND Internal Medicine
DX: E87.5 Hyperkalemia (principal)
CPT/HCPCS: 76770

== ENCOUNTER → 2024-10-29 | Outpatient (CLI) | payer MEDICARE, OTHER | END | disposition home or self-care (01) | LOC: LABPAT 10:12 | PROVIDERS: ATTEND Psychiatry & Neurology Neurology | DX: R53.83 Other fatigue (principal) | CPT/HCPCS: 84132 ==